=== PATIENT | male | born 1940 | race Two or more races ===

== ENCOUNTER 2018-11-26 16:13 | Inpatient (IN) | payer MEDICARE, MEDICAID ==
[~2018-11-26] VITALS: Ht 172.7 cm; Wt 65.8 kg
[2018-11-26 16:33] VITALS: BP 88/42
[2018-11-26] MEDS ORDERED: ARICEPT5 MG ORAL (16:44)
[2018-11-26] MEDS ORDERED: JUVEN PACKET1 EAC1 PO (16:44)
[2018-11-26] MEDS ORDERED: DEPAKOTE500 MG PO (16:44)
[2018-11-26] MEDS ORDERED: DOCUSATE SODIU100 MG ORAL (16:44)
[2018-11-26] MEDS ORDERED: BISACODYL10 M1 RC ×3 (16:44→18:50)
[2018-11-26] MEDS ORDERED: FERROUS SULFAT325 MG ORAL (16:44)
[2018-11-26] MEDS ORDERED: PLAVIX75 MG ORAL (16:44)
[2018-11-26] MEDS ORDERED: CRANBERRY TABL1 EACH PO (16:44)
[2018-11-26] MEDS ORDERED: MILK OF MA400 MG/51 ORAL ×2 (16:46→18:40)
[2018-11-26] MEDS ORDERED: MIDODRINE HCL5 MG ORAL (16:46)
[2018-11-26] MEDS ORDERED: SIMVASTATIN40 MG ORAL (16:46)
[2018-11-26] MEDS ORDERED: MULTIVITAMINS1 EAC8 ORAL (16:46)
[2018-11-26] MEDS ORDERED: PRINIVIL10 MG ORAL (16:46)
[2018-11-26] MEDS ORDERED: ACETAMINOPHEN325 M1 ORAL (16:48)
[2018-11-26] MEDS ORDERED: TAMSULOSIN HCL0.4 MG ORAL (16:48)
[2018-11-26] MEDS ORDERED: ASCORBIC ACID500 MG ORAL (16:49)
[2018-11-26] MEDS ORDERED: ZOFRAN4 M3 ORAL (16:49)
--- NOTE | 2018-11-26 16:57 | NUR ---
ED Nurse Note:pt. was BIBA from the SNF with small rectal bleeding after he had rectal biopcy done today, pt. is A/Ox1 to his name, he has healed left AKA and has wound on right foot, blood and urine sent to labs, given IV fluids, BP 101/53
[2018-11-26 17:13] LABS: HEMATOCRIT 22.6 % (42.0-52.0); HEMOGLOBIN 7.2 G/DL (14.2-18.0); MEAN CORPUSCULAR VOLUME 87 FL (80-99); PLATELET COUNT 309 K/UL (150-450); RED BLOOD COUNT 2.61 M/UL (4.70-6.10); RED CELL DISTRIBUTION WIDTH 13.6 % (11.6-14.8); WHITE BLOOD COUNT 9.5 K/UL (4.8-10.8)
[2018-11-26 17:14] LABS: APPEARANCE,URINE CLOUDY; BILIRUBIN, URINE NEGATIVE (NEGATIVE); COLOR,URINE PALE YELLOW; GLUCOSE, URINE (UA) NEGATIVE (NEGATIVE); KETONES,URINE NEGATIVE (NEGATIVE); LEUKOCYTE ESTERASE ,URINE 3+ (NEGATIVE); NITRITE,URINE NEGATIVE (NEGATIVE); PH,URINE 7 (4.5-8.0); PROTEIN,URINE 3+ (NEGATIVE); UROBILINOGEN,URINE NORMAL MG/DL (0.0-1.0)
[2018-11-26 17:22] LABS: INR 1.2 (0.9-1.1)
[2018-11-26] MEDS: Morphine Sulfate 2mg/ml Inj(IV/IM USE ONLY) IVP ONE ×2 (17:30→18:50)
[2018-11-26 17:32] LABS: ANION GAP 8 mmol/L (5-15); BLOOD UREA NITROGEN 29 mg/dL (7-18); CALCIUM 8.7 MG/DL (8.5-10.1); CARBON DIOXIDE 28 MMOL/L (21-32); CHLORIDE 97 MMOL/L (98-107); CREATININE 1.1 MG/DL (0.55-1.30); POTASSIUM 4.2 MMOL/L (3.5-5.1); SODIUM 133 MMOL/L (136-145)
--- NOTE | 2018-11-26 17:32 | Emergency Room Report ---
History of Present Illness General Chief Complaint: Gastrointestinal Bleed Source: Medical Record, EMS Present Illness HPI The patient is brought in by EMS from a [facility]. Apparently, the patient underwent prostate biopsy today. After the patient returned from the biopsy, the staff noted blood in the patient's stool. The patient complains of pain in his right leg. There are no other complaints. Allergies: Coded Allergies: No Known Allergies (Unverified , 11/26/18) Patient History Past Medical History: see triage record, old chart reviewed, DM, HTN, dementia , seizures, other - PVD, BPH Past Surgical History: other - L.AKA Social History: Denies: smoking, alcohol use, drug use Reviewed Nursing Documentation: PMH: Agreed; PSxH: Agreed Nursing Documentation-PMH Past Medical History: No History, Except For Hx Hypertension: Yes Hx Diabetes: Yes Hx Seizures: Yes Review of Systems All Other Systems: negative except mentioned in HPI Physical Exam Vital Signs Date Time Temp Pulse Resp B/P (MAP) Pulse Ox O2 Delivery O2 Flow Rate FiO2 11/26/18 16:15 97.5 99 18 89/53 94 Nasal Cannula 2.0 Sp02 EP Interpretation: reviewed, normal General Appearance: no apparent distress, alert, GCS 15, non-toxic Head: normocephalic, atraumatic Eyes: bilateral eye normal inspection, bilateral eye PERRL ENT: hearing grossly normal, normal pharynx, no angioedema, normal voice Neck: full range of motion, supple/symm/no masses Respiratory: chest non-tender, lungs clear, normal breath sounds, no respiratory distress, no retraction, no accessory muscle use, speaking full sentences Cardiovascular #1: regular rate, rhythm, no edema, systolic murmur Gastrointestinal: non tender, soft, non-distended, no guarding, no rebound Rectal: deferred Musculoskeletal: other - L. AKA, contracted Neurologic: alert, responsive, motor strength/tone normal, speech normal, grossly normal Psychiatric: mood/affect normal Skin: warm/dry, well hydrated, other - See RN skin exam for [facility] Medical Decision Making Diagnostic Impression: Primary Impression: Gastrointestinal hemorrhage Additional Impressions: Prostatitis UTI (urinary tract infection) ER Course This patient is anemic with a hemoglobin of 7. Given the bright red rectal bleeding, I am concerned that this patient could have a rectal bleed versus a bleed from the biopsy/prostate biopsy location. The patient has never been at this facility and I do not have a comparison hemoglobin or hematocrit. I am unsure what the patient's baseline is. Patient is also found to have a urinary tract infection. Was given broad-spectrum antibiotics. He is also transfused 2 units of packed red blood cells and admitted to the ICU step down. Laboratory Tests Test 11/26/18 16:50 White Blood Count 9.5 K/UL (4.8-10.8) Red Blood Count 2.61 M/UL (4.70-6.10) L Hemoglobin 7.2 G/DL (14.2-18.0) L Hematocrit 22.6 % (42.0-52.0) L Mean Corpuscular Volume 87 FL (80-99) Mean Corpuscular Hemoglobin 27.6 PG (27.0-31.0) Mean Corpuscular Hemoglobin Concent 31.9 G/DL (32.0-36.0) L Red Cell Distribution Width 13.6 % (11.6-14.8) Platelet Count 309 K/UL (150-450) Mean Platelet Volume 4.3 FL (6.5-10.1) L Neutrophils (%) (Auto) % (45.0-75.0) Lymphocytes (%) (Auto) % (20.0-45.0) Monocytes (%) (Auto) % (1.0-10.0) Eosinophils (%) (Auto) % (0.0-3.0) Basophils (%) (Auto) % (0.0-2.0) Differential Total Cells Counted 100 Neutrophils % (Manual) 80 % (45-75) H Lymphocytes % (Manual) 9 % (20-45) L Monocytes % (Manual) 9 % (1-10) Eosinophils % (Manual) 1 % (0-3) Basophils % (Manual) 0 % (0-2) Band Neutrophils 1 % (0-8) Toxic Granulation 1+ Platelet Estimate Adequate Platelet Morphology Normal Polychromasia 1+ Prothrombin Time 12.4 SEC (9.30-11.50) H Prothrombin Time INR 1.2 (0.9-1.1) H PTT 31 SEC (23-33) Urine Color Pale yellow Urine Appearance Cloudy Urine pH 7 (4.5-8.0) Urine Specific [place] 1.010 (1.005-1.035) Urine Protein 3+ (NEGATIVE) H Urine Glucose (UA) Negative (NEGATIVE) Urine Ketones Negative (NEGATIVE) Urine Blood 4+ (NEGATIVE) H Urine Nitrite Negative (NEGATIVE) Urine Bilirubin Negative (NEGATIVE) Urine Urobilinogen Normal MG/DL (0.0-1.0) Urine Leukocyte Esterase 3+ (NEGATIVE) H Urine RBC 0-2 /HPF (0 - 0) H Urine WBC Tntc /HPF (0 - 0) H Urine Squamous Epithelial Cells None /LPF (NONE/OCC) Urine Bacteria Many /HPF (NONE) H Sodium Level 133 MMOL/L (136-145) L Potassium Level 4.2 MMOL/L (3.5-5.1) Chloride Level 97 MMOL/L (98-107) L Carbon Dioxide Level 28 MMOL/L (21-32) Anion Gap 8 mmol/L (5-15) Blood Urea Nitrogen 29 mg/dL (7-18) H Creatinine 1.1 MG/DL (0.55-1.30) Estimate Glomerular Filtration Rate mL/min (>60) Glucose Level 145 MG/DL (74-106) H Calcium Level 8.7 MG/DL (8.5-10.1) Total Bilirubin 0.2 MG/DL (0.2-1.0) Aspartate Amino Transferase (AST) 57 U/L (15-37) H Alanine Aminotransferase (ALT) 36 U/L (12-78) Alkaline Phosphatase 83 U/L (46-116) Total Protein 7.6 G/DL (6.4-8.2) Albumin 1.4 G/DL (3.4-5.0) L Globulin 6.2 g/dL Albumin/Globulin Ratio 0.2 (1.0-2.7) L EKG Diagnostic Results Rate: normal Rhythm: NSR ST Segments: no acute changes Other Impression LBBB Rhythm Strip Diag. Results EP Interpretation: yes Rate: 100's Rhythm: no PVC's, no ectopy, other - S.tachycardia Last Vital Signs Date Time Temp Pulse Resp B/P (MAP) Pulse Ox O2 Delivery O2 Flow Rate FiO2 11/26/18 16:34 97 18 Room Air 2.0 11/26/18 16:33 97.5 88/42 97 Disposition: ADMITTED INPATIENT Condition: Critical Courtney Traore DO Nov 26, 2018 17:32
[2018-11-26 17:37] LABS: ALANINE AMINOTRANSFERASE 36 U/L (12-78); ALBUMIN 1.4 G/DL (3.4-5.0); ALBUMIN/GLOBULIN RATIO 0.2 (1.0-2.7); ALKALINE PHOSPHATASE 83 U/L (46-116); ASPARTATE AMINO TRANSFERASE 57 U/L (15-37); BILIRUBIN,TOTAL 0.2 MG/DL (0.2-1.0)
[2018-11-26] MEDS ORDERED: Cefepime HCl 1 GM in D5W 55 ML IVPB ONE (17:45)
[2018-11-26] MEDS ORDERED: DONEPEZIL HCL5 MG ORAL (18:36)
[2018-11-26 19:05] VITALS: BP 102/52
[2018-11-26 19:45] VITALS: BP 125/70
--- NOTE | 2018-11-26 19:45 | NUR ---
ED Nurse Note: PT report given to Naheed Ruiz RN from [facility]. pt vital signs, condition, status, labs and all info reported to Naheed BELTRE. pt is stable for transfer per MD order. vital signs are stable. pt brought up with all belongings. begings list done by Lana [facility].
--- NOTE | 2018-11-26 20:02 | NUR ---
NURSE NOTES: Patient arrived to SDU room 244-2 via gurney. Accompanied by 2 ED staff members. Received report from SILVANA RN in ED.Open eyes spontaneous, garbled speech. Arousable to verbal and tactile stimuli. does not follow commands.on NC 2L with no SOB. head of bed elevated. BP 106/52 HR 97 Temp 97.7 .skin body assessment done. patient has open wounds on right foot and heel.Wound picture was taken and uploaded.changed dressing per protocol.IV to LAC G20 patent and receiving transfusion. no adverse transfusion reaction observed.no facial grimace or moaning noted. bed locked in low position and bed alarm on.put condom cath.will continue to monitor patient closely.
[2018-11-26 20:10] VITALS: BP 106/52
[2018-11-26] MEDS ORDERED: Morphine Sulfate 2mg/ml Inj(IV/IM USE ONLY) IVP PRN (22:00)
[2018-11-27] VITALS: BP 97/48
[2018-11-27] MEDS: Tamsulosin 0.4mg cap ORAL SCH ×2 (01:12→21:14)
[2018-11-27] MEDS: Donepezil 5mg Tab ORAL SCH ×2 (01:12→21:14)
--- NOTE | 2018-11-27 01:30 | NUR ---
NURSE NOTES: Dr. Callejas came in and examined patient.patient asleep in bed with no acute distress noted.no sign of bleeding. BP 97/48 HR 85 .will continue to monitor.
--- NOTE | 2018-11-27 02:01 | History and Physical ---
History & Physical (DB) History & Physical History & Physical Chief Complaint: Rectal bleed Reason for Hospitalization: Significant bleeding from rectum after prostate biopsy. History obtained from: Chart and Patient HPI: is a 78 year old male who presents with BRBPR after a prostate biopsy done earlier Past Medical History: BPH, unable to care for himself Social History: [facility] resident Past Medical History: As above Diagnosis: Past Surgical History: None Social History:[facility] resident Occupational History: Not available. Social History Main Topics: Smoking status: Nonsmoker Smokeless tobacco: No Alcohol use:No Drug use:None Sexual activity:None Partners:None control/ protection:No Family History:NK Allergies:NKDA Medications: See list Review of Symptoms: General ROS: no weight loss or fever Psychological ROS: no depression or mood changes, no memory loss Ophthalmic ROS: no visual changes or eye irritation ENT ROS: no nasal congestion, hearing loss, dizziness Allergy and Immunology ROS: no allergic symptoms or urticaria Hematological and Lymphatic ROS: no swollen glands, unusual bleeding or bruising Endocrine ROS: no polyuria, polydipsia, weight changes, temperature intolerance Respiratory ROS: no cough, shortness of breath, or wheezing Cardiovascular ROS: no chest pain or dyspnea on exertion Gastrointestinal ROS: no abdominal pain, change in bowel habits, or black or bloody stools Musculoskeletal ROS: no myalgias or arthralgias Neurological ROS: no TIA or stroke symptoms Dermatological ROS: no new or changing skin lesions, rashes or pruritis Physical Exam Vitals: Intake/Output Summary (Last 24 hours) General appearance: alert, cooperative, confused at times, no distress, appears stated age Head: Normocephalic, without obvious abnormality, atraumatic Eyes: conjunctivae/corneas clear. PERRL, EOM's intact. Throat: Lips, mucosa, and tongue normal. Teeth and gums abnormal Neck: supple, symmetrical, trachea midline, no adenopathy, thyroid: not enlarged, symmetric, no tenderness/mass/nodules, no carotid bruit and no JVD Lungs: clear to auscultation bilaterally Heart: regular rate and rhythm, S1, S2 normal, no murmur, click, rub or gallop Abdomen: soft, non-tender. Bowel sounds normal. No masses, no organomegaly Extremities: extremities normal, atraumatic, no cyanosis or edema Pulses: 2+ and symmetric Skin: Skin color, texture, turgor normal. No rashes or lesions Neurologic: Grossly normal Laboratories: Estimated: Imaging and ancillary data Assessment/Problem List: Anemia, Prostate bleed, Plan: DVT Prophylaxis: scd Code status: full Hospital Classification declaration: Based on this initial evaluation, and depending on the patient's clinical course, I anticipate that this patient will require hospitalization for 1 day. Disposition: Once the patient is stable to leave the hospital, I anticipate the patient will likely be discharged to the following [facility]. I spent 70 minutes on this patient's case, and minutes was dedicated to counseling and/or care coordination. Case was discussed with stff. Time of note may not reflect time of encounter. Pollo Callejas MD Nov 27, 2018 02:01
[2018-11-27 04:00] VITALS: BP 95/47
[2018-11-27 05:22] LABS: HEMATOCRIT 20.5 % (42.0-52.0); MEAN CORPUSCULAR VOLUME 87 FL (80-99); PLATELET COUNT 223 K/UL (150-450); RED BLOOD COUNT 2.37 M/UL (4.70-6.10); RED CELL DISTRIBUTION WIDTH 13.5 % (11.6-14.8); WHITE BLOOD COUNT 6.7 K/UL (4.8-10.8)
[2018-11-27 05:52] LABS: ANION GAP 10 mmol/L (5-15); BLOOD UREA NITROGEN 25 mg/dL (7-18); CALCIUM 8.3 MG/DL (8.5-10.1); CARBON DIOXIDE 22 MMOL/L (21-32); CHLORIDE 102 MMOL/L (98-107); CREATININE 0.9 MG/DL (0.55-1.30); POTASSIUM 4.3 MMOL/L (3.5-5.1); SODIUM 133 MMOL/L (136-145)
[2018-11-27 06:03] LABS: HEMOGLOBIN 6.8 G/DL (14.2-18.0)
--- NOTE | 2018-11-27 06:57 | NUR ---
NURSE NOTES: Called and left message to regarding low H&H 6.8/20.5 waiting for MD call back.no sign of bleeding.
--- NOTE | 2018-11-27 07:16 | NUR ---
HAND-OFF: Report given to AYESHA FOSTER RN using SBAR at bedside. Júnior Patterson called back and ordered 2uint PRBC. will carry out order.
[2018-11-27 08:00] VITALS: BP 97/50
--- NOTE | 2018-11-27 08:00 | NUR ---
NURSE NOTES: Observed the patient resting in bed with eyes closed, easily arousable, able to follow simple commands. On 2L O2 via NC. No acute distress noted. SR noted on the monitor. Patient noted with left AKA, right foot dressing intact, clean and dry. Left AC 20G intact, TKO. Condom cath intact. Bed in lowest position, locked, side rails upx3, bed alarm on . Call light within reach. Will continue to monitor.
[2018-11-27] MEDS: Lisinopril 10mg tab ORAL SCH (09:00)
[2018-11-27] MEDS: Docusate 100mg cap ORAL SCH ×2 (09:09→18:36)
[2018-11-27] MEDS: Depakote 500mg tab ORAL SCH ×3 (09:09→18:35)
[2018-11-27] MEDS: Ascorbic Acid 500mg tab ORAL SCH (09:09)
--- NOTE | 2018-11-27 09:50 | NUR ---
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 HOME TO [facility] ER CC:GASTRO INTESTINAL BLEED SI:GASTROINTESTINAL BLEED . UTI VS: BP 88/42, P 99, T 97.5, RR 18, SPO2 97 HgB 6.8, Hct 20.5, Na 133, BUN 29, Urine Protein 3+, Urine Blood 4+, Urine Bacteria MANY IS: NS x1L IV MORPHINE 2mg IVP ARICEPT 5mg FLOMAX 0.4mg ADMITTED TO SDU DC PLAN RETURN TO [facility]
--- NOTE | 2018-11-27 11:10 | NUR ---
NURSE NOTES: Dr. Baca and wound care nurse at bedside, right foot dressing changed per MD. No rectal bleeding at this time.
[2018-11-27 12:00] VITALS: BP 100/56
--- NOTE | 2018-11-27 12:11 | NUR ---
RD ASSESSMENT & RECOMMENDATIONS SEE CARE ACTIVITY FOR COMPLETE ASSESSMENT DAILY ESTIMATED NEEDS: Needs based on WOUNDS/ 65kg 28-33 kcals/kg 2019-8808 total kcals 1.5-2.0 g protein/kg 97-130 g total protein 25-30 mL/kg [id number] total fluid mLs NUTRITION DIAGNOSIS: Increased kcal/prot needs R/T wound healing as evidenced by pt admitted w/ advanced wounds @ RT foot/heel per photos, pending eval, CURRENT DIET:REGULAR/ mech soft ground PO DIET RECOMMENDATIONS: REGULAR/ texture per SYSTEM ADMINISTRATOR or as tolerated ADDITIONAL RECOMMENDATIONS: * Calibrated bedscale wt for accurate CBW * WOUND HEALING: add MVI w/ min x 1, increase vit C to 500mg BID :Alejandro 1pkt BID * Consider SYSTEM ADMINISTRATOR eval for appropriate texture. * A1C for eval of glycemic control- h/o DM * Monitor BGs, need for carb controlled diet.
--- NOTE | 2018-11-27 13:30 | NUR ---
NURSE NOTES: Patient resting in bed comfortably, no acute distress noted. Blood transfusion on going. No adverse reaction noted.
--- NOTE | 2018-11-27 14:41 | Consultation ---
History of Present Illness General Reason for Hospitalization: Gastrointestinal Bleed Present Illness HPI This is a 78-year-old male with multiple medical comorbidities who is a detention resident presented to the emergency department [facility] with bright red blood per rectum. Patient had a prostate biopsy earlier today and since has been noted to have significant bleeding through the rectum. On initial evaluation patient was identified to be tachycardic and anemic. Patient was admitted for evaluation care and management. In the emergency department some dark blood was noted but no active bleeding. Surgery called to evaluate and assist with management. Patient seen, patient evaluated, chart reviewed. During evaluation patient was identified to have a prior lower extremity amputation and a contralateral foot with significant infection and peripheral vascular disease. Allergies: Coded Allergies: No Known Allergies (Unverified , 11/26/18) Medication History Scheduled Ascorbic Acid* (Ascorbic Acid*), 500 MG ORAL DAILY, (Reported) Clopidogrel Bisulfate* (Plavix*), 75 MG ORAL DAILY, (Reported) Divalproex Sodium (Depakote), 500 MG PO TID, (Reported) Docusate Sodium* (Docusate Sodium*), 100 MG ORAL TWICE A DAY, (Reported) Donepezil Hcl* (Donepezil Hcl*), 5 MG ORAL BEDTIME, (Reported) Ferrous Sulfate* (Ferrous Sulfate*), 325 MG ORAL TWICE A DAY, (Reported) Lisinopril* (Prinivil*), 10 MG ORAL DAILY, (Reported) Midodrine* (Proamatine*), 5 MG ORAL THREE TIMES A DAY, (Reported) Multivitamin With Minerals (Multivitamins With Minerals*), 1 TAB ORAL DAILY, ( Reported) Simvastatin (Zocor), 40 MG ORAL BEDTIME, (Reported) Tamsulosin Hcl (Tamsulosin Hcl*), 0.4 MG ORAL BEDTIME, (Reported) Scheduled PRN Acetaminophen* (Acetaminophen 325MG Tablet*), 650 MG ORAL Q4H PRN for For Pain, (Reported) Bisacodyl (Bisacodyl), 10 MG RC for Constipation, (Reported) Magnesium Hydroxide* (Milk Of Magnesia*), 30 ML ORAL DAILY PRN for Constipation, (Reported) Ondansetron* (Zofran*), 4 MG ORAL Q8HR PRN for Nausea & Vomiting, (Reported) Miscellaneous Medications Cranberry Conc/C/Bacill Coag (Cranberry Tablet), 1 EACH PO, (Reported) Discontinued Medications Arginine/Glutamine/Calcium Hmb (Alejandro Packet), 1 EACH PO BID, (Reported) Discontinued Reason: Therapy completed Bisacodyl (Bisacodyl), 10 MG RC, (Reported) Discontinued Reason: Therapy completed Donepezil Hcl* (Aricept*), 5 MG ORAL DAILY, (Reported) Discontinued Reason: Therapy completed Magnesium Hydroxide* (Milk Of Magnesia*), 30 ML ORAL DAILY, (Reported) Discontinued Reason: Therapy completed Patient History Limited by: medical condition History Provided By: Patient, Medical Record, PMD Healthcare decision maker SARIAH WASSERMAN Resuscitation status Full Code Advanced Directive on File Past Medical/Surgical History Past Medical/Surgical History: (1) Ulcerated, foot (2) Gastrointestinal hemorrhage (3) Prostatitis (4) UTI (urinary tract infection) (5) Blood in stool Review of Systems Review of Symptoms General ROS: no weight loss or fever Psychological ROS: no depression or mood changes, no memory loss Ophthalmic ROS: no visual changes or eye irritation ENT ROS: no nasal congestion, hearing loss, dizziness Allergy and Immunology ROS: no allergic symptoms or urticaria Hematological and Lymphatic ROS: no swollen glands, unusual bleeding or bruising Endocrine ROS: no polyuria, polydipsia, weight changes, temperature intolerance Respiratory ROS: no cough, shortness of breath, or wheezing Cardiovascular ROS: no chest pain or dyspnea on exertion Gastrointestinal ROS: denies abdominal pain, bright red blood in stool. Musculoskeletal ROS: no myalgias or arthralgias Neurological ROS: no TIA or stroke symptoms Dermatological ROS: no new or changing skin lesions, rashes or pruritis Physical Exam Physical Exam General appearance: alert, cooperative, no distress, appears stated age Head: Normocephalic, without obvious abnormality, atraumatic Eyes: conjunctivae/corneas clear. PERRL, EOM's intact. Fundi benign Throat: Lips, mucosa, and tongue normal. Teeth and gums normal Neck: supple, symmetrical, trachea midline, no adenopathy, thyroid: not enlarged, symmetric, no tenderness/mass/nodules, no carotid bruit and no JVD Lungs: clear to auscultation bilaterally Heart: regular rate and rhythm, S1, S2 normal, no murmur, click, rub or gallop Abdomen: soft, non-tender. Bowel sounds normal. No masses, no organomegaly Extremities: Left prior amputation ; contralateral extremity with ischemic infected foot Pulses: 2+ and symmetric Skin: Skin color, texture, turgor normal. No rashes or lesions Neurologic: Grossly normal Last 24 Hour Vital Signs Date Time Temp Pulse Resp B/P (MAP) Pulse Ox O2 Delivery O2 Flow Rate FiO2 11/27/18 12:00 Nasal Cannula 2.0 11/27/18 12:00 97.3 85 18 100/56 (71) 100 11/27/18 12:00 82 11/27/18 09:00 97/50 11/27/18 08:00 98.2 84 21 97/50 (66) 97 11/27/18 08:00 Nasal Cannula 2.0 11/27/18 08:00 82 11/27/18 04:00 97.7 88 18 95/47 (63) 100 11/27/18 04:00 Nasal Cannula 2.0 11/27/18 04:00 88 11/27/18 00:00 Nasal Cannula 2.0 11/27/18 00:00 99.0 85 18 97/48 (64) 100 11/27/18 00:00 84 11/27/18 00:00 Nasal Cannula 2.0 11/26/18 20:30 Nasal Cannula 2.0 11/26/18 20:10 97.7 97 16 106/52 (70) 97 11/26/18 20:07 100 11/26/18 19:45 98.2 85 17 125/70 98 Room Air 82 85 85 11/26/18 19:45 98.4 83 15 124/80 98 Room Air 83 11/26/18 19:05 97.8 90 17 102/52 98 Room Air 11/26/18 16:34 97 18 Room Air 2.0 11/26/18 16:33 97.5 97 18 88/42 97 Room Air 11/26/18 16:15 97.5 99 18 89/53 94 Nasal Cannula 2.0 Intake and Output 11/26/18 11/27/18 18:59 06:59 Intake Total 280 ml Output Total 200 ml Balance -200 ml 280 ml Intake Oral 30 ml Blood Product 250 ml Output Urine Total 200 ml # Voids 1 Laboratory Tests Test 11/26/18 16:50 11/27/18 03:35 White Blood Count 9.5 K/UL (4.8-10.8) 6.7 K/UL (4.8-10.8) Red Blood Count 2.61 M/UL (4.70-6.10) L 2.37 M/UL (4.70-6.10) L Hemoglobin 7.2 G/DL (14.2-18.0) L 6.8 G/DL (14.2-18.0) *L Hematocrit 22.6 % (42.0-52.0) L 20.5 % (42.0-52.0) L Mean Corpuscular Volume 87 FL (80-99) 87 FL (80-99) Mean Corpuscular Hemoglobin 27.6 PG (27.0-31.0) 28.6 PG (27.0-31.0) Mean Corpuscular Hemoglobin Concent 31.9 G/DL (32.0-36.0) L 33.1 G/DL (32.0-36.0) Red Cell Distribution Width 13.6 % (11.6-14.8) 13.5 % (11.6-14.8) Platelet Count 309 K/UL (150-450) 223 K/UL (150-450) Mean Platelet Volume 4.3 FL (6.5-10.1) L 4.4 FL (6.5-10.1) L Neutrophils (%) (Auto) % (45.0-75.0) % (45.0-75.0) Lymphocytes (%) (Auto) % (20.0-45.0) % (20.0-45.0) Monocytes (%) (Auto) % (1.0-10.0) % (1.0-10.0) Eosinophils (%) (Auto) % (0.0-3.0) % (0.0-3.0) Basophils (%) (Auto) % (0.0-2.0) % (0.0-2.0) Differential Total Cells Counted 100 100 Neutrophils % (Manual) 80 % (45-75) H 77 % (45-75) H Lymphocytes % (Manual) 9 % (20-45) L 14 % (20-45) L Monocytes % (Manual) 9 % (1-10) 4 % (1-10) Eosinophils % (Manual) 1 % (0-3) 1 % (0-3) Basophils % (Manual) 0 % (0-2) 1 % (0-2) Band Neutrophils 1 % (0-8) 3 % (0-8) Toxic Granulation 1+ Platelet Estimate Adequate Adequate Platelet Morphology Normal Normal Polychromasia 1+ Prothrombin Time 12.4 SEC (9.30-11.50) H Prothromb Time International Ratio 1.2 (0.9-1.1) H Activated Partial Thromboplast Time 31 SEC (23-33) Urine Color Pale yellow Urine Appearance Cloudy Urine pH 7 (4.5-8.0) Urine Specific [place] 1.010 (1.005-1.035) Urine Protein 3+ (NEGATIVE) H Urine Glucose (UA) Negative (NEGATIVE) Urine Ketones Negative (NEGATIVE) Urine Blood 4+ (NEGATIVE) H Urine Nitrite Negative (NEGATIVE) Urine Bilirubin Negative (NEGATIVE) Urine Urobilinogen Normal MG/DL (0.0-1.0) Urine Leukocyte Esterase 3+ (NEGATIVE) H Urine RBC 0-2 /HPF (0 - 0) H Urine WBC Tntc /HPF (0 - 0) H Urine Squamous Epithelial Cells None /LPF (NONE/OCC) Urine Bacteria Many /HPF (NONE) H Sodium Level 133 MMOL/L (136-145) L 133 MMOL/L (136-145) L Potassium Level 4.2 MMOL/L (3.5-5.1) 4.3 MMOL/L (3.5-5.1) Chloride Level 97 MMOL/L (98-107) L 102 MMOL/L (98-107) Carbon Dioxide Level 28 MMOL/L (21-32) 22 MMOL/L (21-32) Anion Gap 8 mmol/L (5-15) 10 mmol/L (5-15) Blood Urea Nitrogen 29 mg/dL (7-18) H 25 mg/dL (7-18) H Creatinine 1.1 MG/DL (0.55-1.30) 0.9 MG/DL (0.55-1.30) Estimat Glomerular Filtration Rate mL/min (>60) mL/min (>60) Glucose Level 145 MG/DL (74-106) H 79 MG/DL (74-106) Calcium Level 8.7 MG/DL (8.5-10.1) 8.3 MG/DL (8.5-10.1) L Total Bilirubin 0.2 MG/DL (0.2-1.0) Aspartate Amino Transf (AST/SGOT) 57 U/L (15-37) H Alanine Aminotransferase (ALT/SGPT) 36 U/L (12-78) Alkaline Phosphatase 83 U/L (46-116) Total Protein 7.6 G/DL (6.4-8.2) Albumin 1.4 G/DL (3.4-5.0) L Globulin 6.2 g/dL Albumin/Globulin Ratio 0.2 (1.0-2.7) L Microbiology Date/Time Source Procedure Growth Status 11/26/18 16:50 Urine,Clean Catch Urine Culture - Preliminary Resulted Height (Feet): 5 Height (Inches): 10.00 Weight (Pounds): 143 Medications Current Medications Medications (Trade) Dose Ordered Sig/Nat Route PRN Reason Start Time Stop Time Status Last Admin Dose Admin Acetaminophen (Tylenol) 650 mg Q4H PRN ORAL For Pain 11/26/18 22:00 12/26/18 21:59 Ascorbic Acid (Vitamin C) 500 mg DAILY ORAL 11/27/18 09:00 12/27/18 08:59 11/27/18 09:09 Clopidogrel Bisulfate (Plavix) 75 mg DAILY ORAL 11/27/18 09:00 12/27/18 08:59 Divalproex Sodium (Depakote) 500 mg TID ORAL 11/27/18 09:00 12/27/18 08:59 11/27/18 12:32 Docusate Sodium (Colace) 100 mg TWICE A DAY ORAL 11/27/18 09:00 12/27/18 08:59 11/27/18 09:09 Donepezil HCl (Aricept) 5 mg BEDTIME ORAL 11/26/18 22:30 12/26/18 22:29 11/27/18 01:12 Ferrous Sulfate (Feosol) 325 mg TWICE A DAY ORAL 11/27/18 09:00 12/27/18 08:59 11/27/18 09:09 Lisinopril (Zestril) 10 mg DAILY ORAL 11/27/18 09:00 12/27/18 08:59 Midodrine (Pro-Amatine) 5 mg THREE TIMES A DAY ORAL 11/27/18 09:00 12/27/18 08:59 11/27/18 12:32 Morphine Sulfate (Morphine Sulfate) 2 mg Q4H PRN IVP For Pain 11/26/18 22:00 12/03/18 21:59 Tamsulosin HCl (Flomax) 0.4 mg BEDTIME ORAL 11/26/18 22:30 12/26/18 22:29 11/27/18 01:12 Assessment/Plan Problem List: (1) Gastrointestinal hemorrhage Assessment & Plan: 78-year-old male with bright red blood per rectum likely secondary to recent prostate biopsy which is seem to have stopped. Severe anemia. Transfuse 2 units PRBC stat repeat CBC this evening AM labs trend labs monitor for bleeding. seems to have stopped since. other labs okay. ICD Codes: K92.2 - Gastrointestinal hemorrhage, unspecified SNOMED: 63010682 Qualifiers: Qualified Codes: K92.2 - Gastrointestinal hemorrhage, unspecified (2) Prostatitis ICD Codes: N41.9 - Inflammatory disease of prostate, unspecified SNOMED: 0897426 Qualifiers: Qualified Codes: N41.8 - Other inflammatory diseases of prostate (3) Ulcerated, foot Assessment & Plan: Patient with prior left lower extremity amputation which he states is secondary to an prior infection in his left foot requiring amputation. He now presents with a significant right lower extremity foot infection with ischemia. The right foot has edema dorsal necrosis a very large open area with exposed muscle tendon subcutaneous fat weeping seropurulent fluid and with some fat necrosis identified. The heel has a blackish necrotic eschar the medial malleolus has a black necrotic eschar. No pulses are palpable. Patient has decreased sensation. There is a foul odor. arterial and vascular duplex studies MRI right foot Based on clinical examination alone there is a high probability the patient will require an amputation will await findings of imaging and discuss with patient. Now we will continue with wound care IV antibiotics ICD Codes: L97.509 - Non-pressure chronic ulcer of other part of unspecified foot with unspecified severity SNOMED: 29542609 (4) Blood in stool ICD Codes: K92.1 - Melena SNOMED: 01442246, [id number] PhuongDveen Nov 27, 2018 14:41
[2018-11-27 16:00] VITALS: BP 100/50
--- NOTE | 2018-11-27 16:30 | NUR ---
NURSE NOTES: Patient resting in bed. no acute distress noted. MRI pending, US ongoing at this time, US tech at bedside.
--- NOTE | 2018-11-27 18:00 | NUR ---
NURSE NOTES: Patient noted with hematuria. Blood transfusion ongoing. Dr. Callejas made aware. No new orders at this time.
--- NOTE | 2018-11-27 19:16 | NUR ---
HAND-OFF: Report given to PATT Oro. Patient in stable condition.
--- NOTE | 2018-11-27 19:17 | NUR ---
NURSE NOTES: Received patient from MARCE ELDRIDGE RN. Patient stable, Second unit of blood running, CBC is ordered when blood transfusion is finished, will continue plan of care.
[2018-11-27 20:00] VITALS: BP 119/59
[2018-11-27] MEDS ORDERED: Donepezil 5mg Tab ORAL SCH (21:00)
[2018-11-27] MEDS: Piperacillin/Tazobactam 3.375 GM in D5W 110 ML IVPB SCH (21:15)
[2018-11-27 21:21] LABS: BASOPHILS % (AUTO) 0.3 % (0.0-2.0); EOSINOPHILS % (AUTO) 0.3 % (0.0-3.0); HEMATOCRIT 28.6 % (42.0-52.0); HEMOGLOBIN 9.5 G/DL (14.2-18.0); MEAN CORPUSCULAR VOLUME 86 FL (80-99); MONOCYTES % (AUTO) 10.4 % (1.0-10.0); PLATELET COUNT 232 K/UL (150-450); RED BLOOD COUNT 3.32 M/UL (4.70-6.10); RED CELL DISTRIBUTION WIDTH 13.1 % (11.6-14.8); WHITE BLOOD COUNT 8.2 K/UL (4.8-10.8)
[2018-11-28] VITALS: BP 148/54
[2018-11-28 04:00] VITALS: BP 105/51
[2018-11-28] MEDS: Piperacillin/Tazobactam 3.375 GM in D5W 110 ML IVPB SCH ×3 (05:47→21:47)
--- NOTE | 2018-11-28 07:15 | NUR ---
5NURSE NOTES: RECEIVED PT WITH HOB ELEVATED 45 DEGREE,EYES OPENS WITH VERBAL AND TACTILE STIMULI.FULL BODY ASSESSMENT DONE.PT REPOSITIONED IN BED Q2HRS TO PROVIDE COMFORT AND TO PREVENT FURTHER SKIN BREAK DOWN.DR BOND FROM [facility] CAME TO SEE THE PT ALSO DR LERMA CAME TO SEE THE PT. PT ON SCHEDULE FOR MRI OF RT FOOT WITHOUT CONTRAS TODAY.NO ACUTE DISTRESS NOTED AT THIS TIME.WILL CONT TO MONITOR.
--- NOTE | 2018-11-28 07:22 | NUR ---
HAND-OFF: Report given to PATT GARCIA.
[2018-11-28 08:00] VITALS: BP 101/55
[2018-11-28] MEDS: Ascorbic Acid 500mg tab ORAL SCH (09:00)
[2018-11-28] MEDS: Depakote 500mg tab ORAL SCH ×3 (09:58→18:31)
[2018-11-28] MEDS: Docusate 100mg cap ORAL SCH ×2 (09:58→18:31)
[2018-11-28] MEDS: Lisinopril 10mg tab ORAL SCH (10:00)
[2018-11-28 12:00] VITALS: BP 100/53
--- NOTE | 2018-11-28 12:11 | Podiatric Progress Note ---
Assessment/Plan Patient Wesley Sanchez is a 78 year old male who was admitted on Nov 26, 2018 at 18:00 with Problems: (1) Right foot infection (2) PVD (peripheral vascular disease) (3) Ulcer of right foot (4) Ulcer of right ankle (5) UTI (urinary tract infection) (6) Blood in stool (7) Gastrointestinal hemorrhage (8) Prostatitis Assessment/Plan MRI pending Vascular consult pending. BK amputation is recommended if ankle joint abscess or Osteomyelitis is present. Order was given for dakin/ns solution 50/50 application qd. patient will be followed. Subjective Reason for consult R foot infection Allergies: Coded Allergies: No Known Allergies (Unverified , 11/26/18) Subjective Patient seen by bedside consulted for R foot infection. Patient is admitted for GI bleeding from [facility]. MRI has been ordered and vascular consult is pending. Objective Exam Last 24 Hour Vital Signs Date Time Temp Pulse Resp B/P (MAP) Pulse Ox O2 Delivery O2 Flow Rate FiO2 11/28/18 10:00 101/55 11/28/18 08:00 97.8 81 18 101/55 (70) 99 11/28/18 08:00 Room Air 11/28/18 08:00 79 11/28/18 05:00 Room Air 11/28/18 04:00 97.7 79 20 105/51 (69) 98 11/28/18 03:45 75 11/28/18 00:00 97.7 78 20 148/54 (85) 98 11/27/18 23:43 82 11/27/18 20:00 Room Air 11/27/18 20:00 97.5 85 24 119/59 (79) 97 11/27/18 19:03 84 11/27/18 16:00 Room Air 11/27/18 16:00 78 11/27/18 16:00 98.3 76 16 100/50 (67) 97 11/27/18 12:00 Nasal Cannula 2.0 11/27/18 12:00 97.3 85 18 100/56 (71) 100 11/27/18 12:00 82 Laboratory Tests Test 11/27/18 20:50 White Blood Count 8.2 K/UL (4.8-10.8) Red Blood Count 3.32 M/UL (4.70-6.10) L Hemoglobin 9.5 G/DL (14.2-18.0) #L Hematocrit 28.6 % (42.0-52.0) #L Mean Corpuscular Volume 86 FL (80-99) Mean Corpuscular Hemoglobin 28.5 PG (27.0-31.0) Mean Corpuscular Hemoglobin Concent 33.1 G/DL (32.0-36.0) Red Cell Distribution Width 13.1 % (11.6-14.8) Platelet Count 232 K/UL (150-450) Mean Platelet Volume 4.6 FL (6.5-10.1) L Neutrophils (%) (Auto) 81.0 % (45.0-75.0) H Lymphocytes (%) (Auto) 8.0 % (20.0-45.0) L Monocytes (%) (Auto) 10.4 % (1.0-10.0) H Eosinophils (%) (Auto) 0.3 % (0.0-3.0) Basophils (%) (Auto) 0.3 % (0.0-2.0) Microbiology Date/Time Source Procedure Growth Status 11/26/18 16:50 Urine,Clean Catch Urine Culture - Preliminary Gram Negative Bacillus 1 Resulted 11/26/18 22:00 Foot Right Gram Stain - Final Resulted 11/26/18 22:00 Wound Culture - Preliminary Gram Negative Bacillus 1 Resulted Musculoskeletal Musculoskeletal bedbound patient with L Bk and R 1st and 2nd toe amp. contracted with direct pressure to the medial aspect of his left foot pressure. patient is turned to his L applying excessive amount of pressure. Neurological Neurological Narrative Cant asses at this time. Dermatological Dermatological Narrative R medial foot ulcer noted to extend from proximal ankle to medial distal foot. pus is dripping from the ankle joint. probs to ankle joint. edema and warmth present. sluff noted to the wound. ++odor. Julio C Byrnes DPM Nov 28, 2018 12:11
[2018-11-28] MEDS: Dakin's 0.25% (Half Strength) 16oz TOPIC SCH (14:12)
--- NOTE | 2018-11-28 14:20 | NUR ---
NURSE NOTES: ESCORTED PT VIA [facility] ACCOMPANIED WITH EDITH SIMONS OF MRI DPT.PT TOLERATING WELL MRI PROCEDURE OF RT FOOT.NO ACUTE DISTRESS NOTED AT THIS TIME.WILL CONT TO MONITOR.
--- NOTE | 2018-11-28 15:02 | Surgery Progress Note ---
Surgery Progress Note Subjective Additional Comments anemia; transfused prbc. otherwise stable. bloody stool noted Objective Last 24 Hour Vital Signs Date Time Temp Pulse Resp B/P (MAP) Pulse Ox O2 Delivery O2 Flow Rate FiO2 11/28/18 12:00 Room Air 11/28/18 12:00 98.0 79 19 100/53 (69) 97 11/28/18 10:00 101/55 11/28/18 08:00 97.8 81 18 101/55 (70) 99 11/28/18 08:00 Room Air 11/28/18 08:00 79 11/28/18 05:00 Room Air 11/28/18 04:00 97.7 79 20 105/51 (69) 98 11/28/18 03:45 75 11/28/18 00:00 97.7 78 20 148/54 (85) 98 11/27/18 23:43 82 11/27/18 20:00 Room Air 11/27/18 20:00 97.5 85 24 119/59 (79) 97 11/27/18 19:03 84 11/27/18 16:00 Room Air 11/27/18 16:00 78 11/27/18 16:00 98.3 76 16 100/50 (67) 97 I&O Intake and Output 11/27/18 11/28/18 18:59 06:59 Intake Total 750 ml 165.98 ml Output Total 300 ml 550 ml Balance 450 ml -384.02 ml Intake Oral 500 ml 50 ml IV Total 115.98 ml Blood Product 250 ml Output Urine Total 300 ml 550 ml # Voids 1 Dressing: saturated Wound: other Drains: other Cardiovascular: RSR Respiratory: decreased breath sounds Abdomen: soft, non-tender, present bowel sounds, non-distended Extremities: edema, cyanosis, other Laboratory Tests Test 11/27/18 20:50 White Blood Count 8.2 K/UL (4.8-10.8) Red Blood Count 3.32 M/UL (4.70-6.10) L Hemoglobin 9.5 G/DL (14.2-18.0) #L Hematocrit 28.6 % (42.0-52.0) #L Mean Corpuscular Volume 86 FL (80-99) Mean Corpuscular Hemoglobin 28.5 PG (27.0-31.0) Mean Corpuscular Hemoglobin Concent 33.1 G/DL (32.0-36.0) Red Cell Distribution Width 13.1 % (11.6-14.8) Platelet Count 232 K/UL (150-450) Mean Platelet Volume 4.6 FL (6.5-10.1) L Neutrophils (%) (Auto) 81.0 % (45.0-75.0) H Lymphocytes (%) (Auto) 8.0 % (20.0-45.0) L Monocytes (%) (Auto) 10.4 % (1.0-10.0) H Eosinophils (%) (Auto) 0.3 % (0.0-3.0) Basophils (%) (Auto) 0.3 % (0.0-2.0) Plan Problems: (1) Gastrointestinal hemorrhage Assessment & Plan: 78-year-old male with bright red blood per rectum likely secondary to recent prostate biopsy which is seem to have stopped. Severe anemia. possible GI bleed? GI consult AM labs trend labs monitor for bleeding. seems to have stopped since. other labs okay. (2) Prostatitis (3) Ulcerated, foot Assessment & Plan: Patient with prior left lower extremity amputation which he states is secondary to an prior infection in his left foot requiring amputation. He now presents with a significant right lower extremity foot infection with ischemia. The right foot has edema dorsal necrosis a very large open area with exposed muscle tendon subcutaneous fat weeping seropurulent fluid and with some fat necrosis identified. The heel has a blackish necrotic eschar the medial malleolus has a black necrotic eschar. No pulses are palpable. Patient has decreased sensation. There is a foul odor. arterial and vascular duplex studies MRI right foot Based on clinical examination alone there is a high probability the patient will require an amputation will await findings of imaging and discuss with patient. Now we will continue with wound care Podiatry and Vascular consult for limb salvage. IV antibiotics (4) Blood in stool Deven Baca Nov 28, 2018 15:02
[2018-11-28 16:00] VITALS: BP 90/44
--- NOTE | 2018-11-28 16:00 | NUR ---
NURSE NOTES: MRI OF RT FOOT COMPLETED ,PT TOLERATED WELL PROCEDURE.PT ESCORTED BACK TO HIS ROOM,RECONNECTED BACK TO ZOSYN 3.75MG IVPB.WILL CONT TO MONITOR.
--- NOTE | 2018-11-28 17:26 | General Progress Note ---
Progress Note Progress Note Bioethics note. Note: I wrote a longer note and [employer] crashed and evidently my note was lost. In sum, the Bioethics committee does not see a bioethics issue, apart from the inability of the patient to provide consent. The committee encourages the attending physicians to do what in their opinion would be in the patient's best interest. Please call if you wish to further discuss this; I spoke earlier with social media editor and Dr. Larson. Sumanth Woods MD Nov 28, 2018 17:26
--- NOTE | 2018-11-28 18:00 | NUR ---
NURSE NOTES:DR KSAGGS REPORT TO ARMINDA BELTRE IN CHARGE REGARDING MRI REPORT OF RT FOOT IS OSTEOMYLITIS.PT RT FOOT IS BLEEDING AND RE-ENFORCED WITH 4X4 AND KERLIX THEM ELEVATED WITH TWO PILLOWS. PLACED A TELEPHONE CALL TO DR WARD AND MADE AWARE AND NOTIFIED REGARDING RESULT OF MRI OSTEOMYLITIS OF RT FOOT ALSO .RT FOOT BLEEDING AND RE-ENFORCED WITH 4X4 AND KERLIX AND ELEVATED WITH PILLOWS,ALSO DR MYERS CAME TO SEE THE PT AND ASSESSED THE RT FOOT.NO NEW ORDERS FROM DR WARD NOTED .WILL CONT TO MONITOR.
--- NOTE | 2018-11-28 18:10 | Diagnostic Imaging Report ---
Indication: Swelling and pain with open wound of the right foot and heel Technique: Sagittal, coronal, and axial T 1 fast spin echo and fast spin echo STIR images of the ankle Comparison: none Findings: There there is considerable image degradation due to motion artifact. Is abnormal increased STIR signal and markedly abnormal increased T1 signal involving most of the talus. There is increased STIR signal and decreased T1 signal in the distal tibia. There is questionable STIR signal abnormality in the medial calcaneus, without definite T1 signal abnormality. Increased STIR and decreased T1 signal is seen in the posterior superior corner of the navicular. There is generalized edema of the dorsal and posterior fat. No definite focal defined fluid collections to suggest abscess demonstrated. There is suggestion of chronic erosive changes of the midfoot bones and proximal metatarsals, without definite focal marrow edema. Impression: Limited exam, due to patient motion artifact Abnormal signal within the talus, distal tibia, upper posterior navicular. Findings are highly suspicious for acute osteomyelitis. More questionable signal abnormality of the calcaneus, may be reactive or could indicate early acute osteomyelitis changes. Soft tissue edema, likely cellulitis given stated clinical history. No definite focal drainable abscess collection demonstrated CLAUDIA charge nurse notified of the findings at the time of interpretation
--- NOTE | 2018-11-28 18:11 | Diagnostic Imaging Report ---
Indication: Swelling and pain with open wound, dorsal necrosis Technique: Sagittal, coronal, and axial T 1 fast spin echo and fast spin echo STIR images of the right forefoot Comparison: none Findings: There is evidence of prior amputation of the first toe at the level of the metatarsophalangeal joint. There is increased STIR and decreased T1 signal within the distal first metatarsal. There is subtle slight increased STIR signal within the second proximal phalanx, without corresponding T1 signal abnormality. There is evidence of chronic osseous erosions of the middle and distal phalanges. There is evidence of prior third toe amputation at the level of the metatarsophalangeal joint. There is evidence of chronic erosive changes of the third metatarsal head. No definite marrow edema demonstrated. The fourth digit demonstrates no evidence of marrow edema. The fifth digit demonstrates no definite evidence of marrow edema. There is extensive edema of the subcutaneous fat and deep tissue compartments. No definite focal drainable fluid collection is demonstrated. There is evidence of a medial soft tissue ulcer at the level of the medial cuneiform. Impression: Abnormal marrow signal within the distal first metatarsal. This is highly suspicious for acute osteomyelitis Subtle increased STIR signal within the second proximal phalanx, without corresponding T1 signal abnormality. This could indicate reactive changes versus very early acute osteomyelitis Evidence of first and third toe amputations Chronic erosive changes as described Extensive diffuse soft tissue edema. Given stated clinical history, likely on the basis of cellulitis. No definite focal drainable abscess collection. There is evidence of medial soft tissue ulcer. CLAUDIA charge nurse notified of the findings at the time of interpretation
--- NOTE | 2018-11-28 19:00 | Consultation ---
DATE OF CONSULTATION: 11/28/2018 CHIEF COMPLAINT: Rectal bleeding. HISTORY OF PRESENT ILLNESS: Most of history per chart. The patient is a extremely poor historian, 78-year-old male with past medical history of peripheral vascular disease with left AKA presented to the hospital with rectal bleed after having a prostate biopsy. PAST MEDICAL HISTORY: 1. Significant for history of peripheral vascular disease requiring left AKA and right toe amputations. 2. Urinary tract infection. 3. BPH. 4. Dementia. 5. Hypertension. ALLERGIES: No known drug allergies. MEDICATIONS: He was on vitamin C, Plavix, Depakote, Colace, donepezil, iron, lisinopril, midodrine, multivitamin, simvastatin, tamsulosin. FAMILY HISTORY: Noncontributory. SOCIAL HISTORY: There is no history of tobacco, alcohol, or drug abuse. REVIEW OF SYSTEMS: Unable to obtain. PHYSICAL EXAMINATION: VITAL SIGNS: Temperature 97.8, pulse 81, respiration 18, blood pressure is 101/55. HEENT: Normocephalic and atraumatic. Mild pale conjunctivae. NECK: Supple. No evidence of obvious lymphadenopathy. CARDIOVASCULAR: Regular rhythm. Plus S1 and S2. No obvious murmur. LUNGS: Decreased breath sounds bilaterally based on supine exam. ABDOMEN: Soft and nontender. No rebound. No guarding. No peritoneal sign. EXTREMITIES: Left AKA and there is a right toe amputation. LABORATORY AND DIAGNOSTIC DATA: White count is 8.2, hemoglobin dropped to about 6.8, after two units now 9.5, platelet count 232. Chem-7, sodium 133, potassium 4.3, BUN 25, creatinine 0.9. ASSESSMENT: This is an 78-year-old male rectal bleeding after having a prostate biopsy. I am not sure if this is the cause for the rectal bleeding. We do not have any prior history of endoscopy and colonoscopy in this patient. The patient is extremely a poor historian. Never been admitted to [facility] for so we have no records on him. Our plan will be to stop his Plavix given active bleeding that required two units of blood transfusion. We are going to monitor his CBC on daily basis. Consider doing colonoscopy on Saturday if the patient has persistent rectal bleeding. Meanwhile as I mentioned, we are going to hold off on Plavix. Continue on Colace. Add MiraLAX. Follow labs and also follow with surgery regarding possible need for right leg amputation also given there is sign and symptoms of infection. I want to thank, Dr. Callejas, for this kind referral. Dre Forde M.D. DR: Kane JOB#: [id number] CC: Pollo Callejas M.D.; Fax#: [phone]
--- NOTE | 2018-11-28 19:00 | NUR ---
HAND-OFF: Report given to .ANNA BELTRE.
--- NOTE | 2018-11-28 19:11 | NUR ---
NURSE NOTES: Received patient from PATT GARCIA. Will continue plan of care.
[2018-11-28 20:00] VITALS: BP 105/54
[2018-11-28] MEDS: Tamsulosin 0.4mg cap ORAL SCH (21:48)
[2018-11-28] MEDS: Donepezil 5mg Tab ORAL SCH (21:48)
[2018-11-28] MEDS: Miralax 17gm pkt ORAL SCH (21:48)
--- NOTE | 2018-11-28 22:54 | General Progress Note ---
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
--- NOTE | 2018-11-28 23:05 | General Progress Note ---
Assessment/Plan Status: not improved Status Narrative Bright red bleed from rectum Left AKA Right foot ulcer not salvagable Possible GI bleed Peripheral vascular disease Assessment/Plan He will need AKA of right LE, will obtain cardiology clearance. At this time no active GI bleed. He has some bleed from his right foot. He is off of Plavix in preparation for surgery. Will check lab Subjective Date patient seen: Nov 28, 2018 Time patient seen: 22:56 ROS Limited/Unobtainable: No Constitutional: Reports: other - Pain of his right foot HEENT: Reports: no symptoms Cardiovascular: Reports: no symptoms Respiratory: Reports: no symptoms Gastrointestinal/Abdominal: Reports: no symptoms Genitourinary: Reports: no symptoms Neurologic/Psychiatric: Reports: no symptoms Endocrine: Reports: no symptoms Hematologic/Lymphatic: Reports: no symptoms Allergies: Coded Allergies: No Known Allergies (Unverified , 11/26/18) Objective Last 24 Hour Vital Signs Date Time Temp Pulse Resp B/P (MAP) Pulse Ox O2 Delivery O2 Flow Rate FiO2 11/28/18 20:00 97.8 83 20 105/54 (71) 97 11/28/18 20:00 Room Air 11/28/18 19:27 84 11/28/18 16:00 74 11/28/18 16:00 Room Air 11/28/18 16:00 98.2 74 17 90/44 (59) 97 11/28/18 12:00 Room Air 11/28/18 12:00 80 11/28/18 12:00 98.0 79 19 100/53 (69) 97 11/28/18 10:00 101/55 11/28/18 08:00 97.8 81 18 101/55 (70) 99 11/28/18 08:00 Room Air 11/28/18 08:00 79 11/28/18 05:00 Room Air 11/28/18 04:00 97.7 79 20 105/51 (69) 98 11/28/18 03:45 75 11/28/18 00:00 97.7 78 20 148/54 (85) 98 11/27/18 23:43 82 Intake and Output 11/27/18 11/28/18 19:00 07:00 Intake Total 750 ml 220.98 ml Output Total 300 ml 550 ml Balance 450 ml -329.02 ml Intake Oral 500 ml 50 ml IV Total 170.98 ml Blood Product 250 ml Output Urine Total 300 ml 550 ml # Voids 1 Height (Feet): 5 Height (Inches): 10.00 Weight (Pounds): 143 General Appearance: no apparent distress EENT: PERRL/EOMI Neck: non-tender Cardiovascular: regular rhythm Respiratory/Chest: chest wall non-tender, lungs clear Abdomen: normal bowel sounds, non tender, soft Pelvis: normal external exam Genitourinary/Rectal: heme positive stool Extremities: other - Left AKA and ulcer and contracture Right AKA Neurologic: alert, sensory deficit Skin: other - stage IV ulcer of right foot Lymphatic: normal anterior cervical (L), normal anterior cervical (R), normal posterior cervical (L), normal posterior cervical (R), normal submandibular (L) , normal submandibular (R), normal supraclavicular (L), normal supraclavicular ( R), normal axillary (L), normal axillary (R), normal inguinal (L), normal inguinal (R), normal other Pollo Callejas MD Nov 28, 2018 23:05
[2018-11-29] VITALS: BP 115/60
--- NOTE | 2018-11-29 00:06 | Cardiology Report ---
APPROVED REPORT EKG Measurement Heart [id number] Sinus tachycardia Left bundle branch block Abnormal ECG
[2018-11-29 04:00] VITALS: BP 102/56
[2018-11-29] MEDS: Piperacillin/Tazobactam 3.375 GM in D5W 110 ML IVPB SCH ×3 (05:40→21:36)
[2018-11-29 05:50] LABS: BASOPHILS % (AUTO) 0.3 % (0.0-2.0); EOSINOPHILS % (AUTO) 0.7 % (0.0-3.0); HEMATOCRIT 27.9 % (42.0-52.0); HEMOGLOBIN 9.2 G/DL (14.2-18.0); LYMPHOCYTES % (AUTO) 10.6 % (20.0-45.0); MEAN CORPUSCULAR VOLUME 86 FL (80-99); MONOCYTES % (AUTO) 9.7 % (1.0-10.0); NEUTROPHILS % (AUTO) 78.7 % (45.0-75.0); PLATELET COUNT 224 K/UL (150-450); RED BLOOD COUNT 3.23 M/UL (4.70-6.10); RED CELL DISTRIBUTION WIDTH 13.1 % (11.6-14.8); WHITE BLOOD COUNT 6.9 K/UL (4.8-10.8)
[2018-11-29 06:06] LABS: ANION GAP 6 mmol/L (5-15); BLOOD UREA NITROGEN 14 mg/dL (7-18); CALCIUM 8.2 MG/DL (8.5-10.1); CARBON DIOXIDE 28 MMOL/L (21-32); CHLORIDE 99 MMOL/L (98-107); CREATININE 0.8 MG/DL (0.55-1.30); POTASSIUM 3.6 MMOL/L (3.5-5.1); SODIUM 133 MMOL/L (136-145)
--- NOTE | 2018-11-29 07:02 | NUR ---
NURSE NOTES: Received report form Preethi BELTRE, pt. in bed awake, alert to name, no signs or symptoms of acute distress noted, bed in lowest position and call light within easy reach, cardiac monitoring on, pt. appears to be sating well on room air at 97%- no distress noted, pt. is clean and dry, bed alarm on and safety brakes engaged, condom cath intact and draining to gravity, dressings dry and intact, Left AC 20G- TKO- IV intact and patent, safety measures continued, will continue with plan of care. Addendum: 11/29/18 at 0756 by AMBER AVILES RN RN Side rails padded for seizure precautions.
--- NOTE | 2018-11-29 07:10 | NUR ---
HAND-OFF: Report given to PATT Tyler.
[2018-11-29 08:00] VITALS: BP 97/56
[2018-11-29] MEDS: Ascorbic Acid 500mg tab ORAL SCH (08:03)
[2018-11-29] MEDS: Docusate 100mg cap ORAL SCH (08:03)
[2018-11-29] MEDS: Depakote 500mg tab ORAL SCH ×3 (08:04→17:29)
[2018-11-29] MEDS: Lisinopril 10mg tab ORAL SCH (08:05)
[2018-11-29] MEDS: Dakin's 0.25% (Half Strength) 16oz TOPIC SCH (09:55)
--- NOTE | 2018-11-29 11:33 | NUR ---
HAND-OFF: Report given to Naye BELTRE/ Jonny BELTRE,pt. remians stable and no signs of distress noted.
--- NOTE | 2018-11-29 11:37 | NUR ---
NURSE NOTES: Patient received from Nayeli BELTRE. Patient awake, active, clean, and on room air with no signs of distress. Bed at its lowest position with call light in reach.
[2018-11-29 12:00] VITALS: BP 91/42
[2018-11-29] MEDS ORDERED: NS 275ml ONE (15:06)
[2018-11-29 16:00] VITALS: BP 93/44
--- NOTE | 2018-11-29 17:13 | Cardiac Electrophysiology PN ---
Subjective Subjective [id number] Objective Last 24 Hour Vital Signs Date Time Temp Pulse Resp B/P (MAP) Pulse Ox O2 Delivery O2 Flow Rate FiO2 11/29/18 15:26 83 11/29/18 12:00 97.3 71 18 91/42 (58) 96 11/29/18 12:00 Room Air 11/29/18 11:50 75 11/29/18 08:05 94/57 11/29/18 08:00 Room Air 11/29/18 08:00 97.9 78 18 97/56 (70) 98 11/29/18 08:00 80 11/29/18 04:00 Room Air 11/29/18 04:00 97.6 81 20 102/56 (71) 96 11/29/18 03:32 72 11/29/18 00:00 Room Air 11/29/18 00:00 98.2 87 20 115/60 (78) 99 11/28/18 23:34 88 11/28/18 20:00 97.8 83 20 105/54 (71) 97 11/28/18 20:00 Room Air 11/28/18 19:27 84 Intake and Output 11/28/18 11/29/18 19:00 07:00 Intake Total 965.0 ml 246.70 ml Output Total 1 ml 600 ml Balance 964.0 ml -353.30 ml Intake Oral 800 ml 100 ml IV Total 165.0 ml 146.70 ml Output Urine Total 600 ml Stool Total 1 ml # Voids 3 # Bowel Movements 2 Laboratory Tests Test 11/28/18 23:00 11/29/18 04:40 Stool Occult Blood Positive (NEGATIVE) White Blood Count 6.9 K/UL (4.8-10.8) Red Blood Count 3.23 M/UL (4.70-6.10) L Hemoglobin 9.2 G/DL (14.2-18.0) L Hematocrit 27.9 % (42.0-52.0) L Mean Corpuscular Volume 86 FL (80-99) Mean Corpuscular Hemoglobin 28.4 PG (27.0-31.0) Mean Corpuscular Hemoglobin Concent 32.9 G/DL (32.0-36.0) Red Cell Distribution Width 13.1 % (11.6-14.8) Platelet Count 224 K/UL (150-450) Mean Platelet Volume 4.7 FL (6.5-10.1) L Neutrophils (%) (Auto) 78.7 % (45.0-75.0) H Lymphocytes (%) (Auto) 10.6 % (20.0-45.0) L Monocytes (%) (Auto) 9.7 % (1.0-10.0) Eosinophils (%) (Auto) 0.7 % (0.0-3.0) Basophils (%) (Auto) 0.3 % (0.0-2.0) Sodium Level 133 MMOL/L (136-145) L Potassium Level 3.6 MMOL/L (3.5-5.1) Chloride Level 99 MMOL/L (98-107) Carbon Dioxide Level 28 MMOL/L (21-32) Anion Gap 6 mmol/L (5-15) Blood Urea Nitrogen 14 mg/dL (7-18) Creatinine 0.8 MG/DL (0.55-1.30) Estimat Glomerular Filtration Rate mL/min (>60) Glucose Level 122 MG/DL (74-106) H Calcium Level 8.2 MG/DL (8.5-10.1) L Microbiology Date/Time Source Procedure Growth Status 11/26/18 18:30 Nasal Nares MRSA Culture - Final NO METHICILLIN RESISTANT STAPH AUREUS... Complete 11/26/18 22:00 Foot Right Gram Stain - Final Resulted 11/26/18 22:00 Wound Culture - Preliminary Pseudomonas Aeruginosa Diphtheroids Resulted 11/26/18 18:30 Rectum VRE Culture - Final NO VANCOMYCIN RESISTANT ENTEROCOCCUS ... Complete Willie Araya MD Nov 29, 2018 17:13
--- NOTE | 2018-11-29 17:32 | General Progress Note ---
Assessment/Plan Assessment/Plan Assessment - Rectal bleeding, ? resolved - anemia - PVD / gangrene Recommendations - po diet - surgical f/u - monitor CBC - possible colonoscopy at later date Subjective Allergies: Coded Allergies: No Known Allergies (Unverified , 11/26/18) Subjective above noted no rectal bleeding plans for amputation noted Objective Last 24 Hour Vital Signs Date Time Temp Pulse Resp B/P (MAP) Pulse Ox O2 Delivery O2 Flow Rate FiO2 11/29/18 15:26 83 11/29/18 12:00 97.3 71 18 91/42 (58) 96 11/29/18 12:00 Room Air 11/29/18 11:50 75 11/29/18 08:05 94/57 11/29/18 08:00 Room Air 11/29/18 08:00 97.9 78 18 97/56 (70) 98 11/29/18 08:00 80 11/29/18 04:00 Room Air 11/29/18 04:00 97.6 81 20 102/56 (71) 96 11/29/18 03:32 72 11/29/18 00:00 Room Air 11/29/18 00:00 98.2 87 20 115/60 (78) 99 11/28/18 23:34 88 11/28/18 20:00 97.8 83 20 105/54 (71) 97 11/28/18 20:00 Room Air 11/28/18 19:27 84 Intake and Output 11/28/18 11/29/18 18:59 06:59 Intake Total 1020.0 ml 219.20 ml Output Total 1 ml 600 ml Balance 1019.0 ml -380.80 ml Intake Oral 800 ml 100 ml IV Total 220.0 ml 119.20 ml Output Urine Total 600 ml Stool Total 1 ml # Voids 3 # Bowel Movements 2 Laboratory Tests 11/28/18 23:00: Stool Occult Blood Positive 11/29/18 04:40: White Blood Count 6.9, Red Blood Count 3.23L, Hemoglobin 9.2L, Hematocrit 27.9L , Mean Corpuscular Volume 86, Mean Corpuscular Hemoglobin 28.4, Mean Corpuscular Hemoglobin Concent 32.9, Red Cell Distribution Width 13.1, Platelet Count 224, Mean Platelet Volume 4.7L, Neutrophils (%) (Auto) 78.7H, Lymphocytes (%) (Auto) 10.6L, Monocytes (%) (Auto) 9.7, Eosinophils (%) (Auto) 0.7, Basophils (%) (Auto) 0.3, Sodium Level 133L, Potassium Level 3.6, Chloride Level 99, Carbon Dioxide Level 28, Anion Gap 6, Blood Urea Nitrogen 14, Creatinine 0.8, Estimat Glomerular Filtration Rate , Glucose Level 122H, Calcium Level 8.2L Height (Feet): 5 Height (Inches): 10.00 Weight (Pounds): 143 Objective Debilitated L Man NCAT supple CTA RR abd soft ND (+) L AKA (+) R foot dressing Danilo Stover MD Nov 29, 2018 17:32
[2018-11-29] MEDS: Vancomycin 1.25mg/D5W 275ml IVPB SCH ×2 (17:57)
--- NOTE | 2018-11-29 18:10 | Infectious Diseases Prog Note ---
Assessment/Plan Assessment/Plan Full consult dictated: A) right foot/ankle gangrene/osteomyelitis/wound infection/cellulitis proteus uti allergies - nkda P) continue vancomycin and zosyn right aka recommended by vascular surgery thank you Subjective Allergies: Coded Allergies: No Known Allergies (Unverified , 11/26/18) Objective Vital Signs Last 24 Hour Vital Signs Date Time Temp Pulse Resp B/P (MAP) Pulse Ox O2 Delivery O2 Flow Rate FiO2 11/29/18 16:00 Room Air 11/29/18 16:00 98.1 82 25 93/44 (60) 96 11/29/18 15:26 83 11/29/18 12:00 97.3 71 18 91/42 (58) 96 11/29/18 12:00 Room Air 11/29/18 11:50 75 11/29/18 08:05 94/57 11/29/18 08:00 Room Air 11/29/18 08:00 97.9 78 18 97/56 (70) 98 11/29/18 08:00 80 11/29/18 04:00 Room Air 11/29/18 04:00 97.6 81 20 102/56 (71) 96 11/29/18 03:32 72 11/29/18 00:00 Room Air 11/29/18 00:00 98.2 87 20 115/60 (78) 99 11/28/18 23:34 88 11/28/18 20:00 97.8 83 20 105/54 (71) 97 11/28/18 20:00 Room Air 11/28/18 19:27 84 Height (Feet): 5 Height (Inches): 10.00 Weight (Pounds): 143 Microbiology Date/Time Source Procedure Growth Status 11/26/18 18:30 Nasal Nares MRSA Culture - Final NO METHICILLIN RESISTANT STAPH AUREUS... Complete 11/26/18 22:00 Foot Right Gram Stain - Final Resulted 11/26/18 22:00 Wound Culture - Preliminary Pseudomonas Aeruginosa Diphtheroids Resulted 11/26/18 18:30 Rectum VRE Culture - Final NO VANCOMYCIN RESISTANT ENTEROCOCCUS ... Complete Laboratory Tests Test 11/28/18 23:00 11/29/18 04:40 Stool Occult Blood Positive (NEGATIVE) White Blood Count 6.9 K/UL (4.8-10.8) Red Blood Count 3.23 M/UL (4.70-6.10) L Hemoglobin 9.2 G/DL (14.2-18.0) L Hematocrit 27.9 % (42.0-52.0) L Mean Corpuscular Volume 86 FL (80-99) Mean Corpuscular Hemoglobin 28.4 PG (27.0-31.0) Mean Corpuscular Hemoglobin Concent 32.9 G/DL (32.0-36.0) Red Cell Distribution Width 13.1 % (11.6-14.8) Platelet Count 224 K/UL (150-450) Mean Platelet Volume 4.7 FL (6.5-10.1) L Neutrophils (%) (Auto) 78.7 % (45.0-75.0) H Lymphocytes (%) (Auto) 10.6 % (20.0-45.0) L Monocytes (%) (Auto) 9.7 % (1.0-10.0) Eosinophils (%) (Auto) 0.7 % (0.0-3.0) Basophils (%) (Auto) 0.3 % (0.0-2.0) Sodium Level 133 MMOL/L (136-145) L Potassium Level 3.6 MMOL/L (3.5-5.1) Chloride Level 99 MMOL/L (98-107) Carbon Dioxide Level 28 MMOL/L (21-32) Anion Gap 6 mmol/L (5-15) Blood Urea Nitrogen 14 mg/dL (7-18) Creatinine 0.8 MG/DL (0.55-1.30) Estimat Glomerular Filtration Rate mL/min (>60) Glucose Level 122 MG/DL (74-106) H Calcium Level 8.2 MG/DL (8.5-10.1) L Current Medications Medications (Trade) Dose Ordered Sig/Nat Route PRN Reason Start Time Stop Time Status Last Admin Dose Admin Acetaminophen (Tylenol) 650 mg Q4H PRN ORAL For Pain 11/26/18 22:00 12/26/18 21:59 11/29/18 13:56 Ascorbic Acid (Vitamin C) 500 mg DAILY ORAL 11/27/18 09:00 12/27/18 08:59 11/29/18 08:03 Divalproex Sodium (Depakote) 500 mg TID ORAL 11/27/18 09:00 12/27/18 08:59 11/29/18 17:29 Docusate Sodium (Colace) 100 mg EVERY 12 HOURS ORAL 11/29/18 21:00 12/29/18 20:59 Donepezil HCl (Aricept) 5 mg BEDTIME ORAL 11/26/18 22:30 12/26/18 22:29 11/28/18 21:48 Ferrous Sulfate (Feosol) 325 mg TWICE A DAY ORAL 11/27/18 09:00 12/27/18 08:59 11/29/18 17:29 Lisinopril (Zestril) 10 mg DAILY ORAL 11/27/18 09:00 12/27/18 08:59 11/28/18 10:00 Morphine Sulfate (Morphine Sulfate) 2 mg Q4H PRN IVP For Pain 11/26/18 22:00 12/03/18 21:59 Piperacillin Sod/ Tazobactam Sod 3.375 gm/Dextrose 110 ml @ 27.5 mls/hr EVERY 8 HOURS IVPB 11/27/18 22:00 12/02/18 21:59 11/29/18 13:53 Polyethylene Glycol (Miralax) 17 gm BEDTIME ORAL 11/28/18 21:00 12/28/18 20:59 11/28/18 21:48 Sodium Hypochlorite (Dakin's Half Strength) 1 applic DAILY TOPIC 11/28/18 13:30 12/28/18 13:29 11/29/18 09:55 Tamsulosin HCl (Flomax) 0.4 mg BEDTIME ORAL 11/26/18 22:30 12/26/18 22:29 11/28/18 21:48 Vancomycin HCl (Vanco rx to dose) 1 ea DAILY PRN MISC Per rx protocol 11/29/18 17:45 12/29/18 17:44 Vancomycin HCl 1.25 gm/Dextrose 275 ml @ 183.333 mls/hr Q24H IVPB 11/29/18 18:00 12/04/18 17:59 11/29/18 17:57 Riki Lunsford MD Nov 29, 2018 18:10
--- NOTE | 2018-11-29 18:54 | Surgery Progress Note ---
Surgery Progress Note Subjective Additional Comments no acute events. afebrile, HD stable, labs stable. MRI noted. appreciate podiatry / vascular input Objective Last 24 Hour Vital Signs Date Time Temp Pulse Resp B/P (MAP) Pulse Ox O2 Delivery O2 Flow Rate FiO2 11/29/18 16:00 Room Air 11/29/18 16:00 98.1 82 25 93/44 (60) 96 11/29/18 15:26 83 11/29/18 12:00 97.3 71 18 91/42 (58) 96 11/29/18 12:00 Room Air 11/29/18 11:50 75 11/29/18 08:05 94/57 11/29/18 08:00 Room Air 11/29/18 08:00 97.9 78 18 97/56 (70) 98 11/29/18 08:00 80 11/29/18 04:00 Room Air 11/29/18 04:00 97.6 81 20 102/56 (71) 96 11/29/18 03:32 72 11/29/18 00:00 Room Air 11/29/18 00:00 98.2 87 20 115/60 (78) 99 11/28/18 23:34 88 11/28/18 20:00 97.8 83 20 105/54 (71) 97 11/28/18 20:00 Room Air 11/28/18 19:27 84 I&O Intake and Output 11/28/18 11/29/18 19:00 07:00 Intake Total 965.0 ml 246.70 ml Output Total 1 ml 600 ml Balance 964.0 ml -353.30 ml Intake Oral 800 ml 100 ml IV Total 165.0 ml 146.70 ml Output Urine Total 600 ml Stool Total 1 ml # Voids 3 # Bowel Movements 2 Dressing: saturated Wound: other Drains: other Cardiovascular: RSR Respiratory: clear Abdomen: soft, non-tender, non-distended Extremities: edema, tenderness, cyanosis Laboratory Tests Test 11/28/18 23:00 11/29/18 04:40 Stool Occult Blood Positive (NEGATIVE) White Blood Count 6.9 K/UL (4.8-10.8) Red Blood Count 3.23 M/UL (4.70-6.10) L Hemoglobin 9.2 G/DL (14.2-18.0) L Hematocrit 27.9 % (42.0-52.0) L Mean Corpuscular Volume 86 FL (80-99) Mean Corpuscular Hemoglobin 28.4 PG (27.0-31.0) Mean Corpuscular Hemoglobin Concent 32.9 G/DL (32.0-36.0) Red Cell Distribution Width 13.1 % (11.6-14.8) Platelet Count 224 K/UL (150-450) Mean Platelet Volume 4.7 FL (6.5-10.1) L Neutrophils (%) (Auto) 78.7 % (45.0-75.0) H Lymphocytes (%) (Auto) 10.6 % (20.0-45.0) L Monocytes (%) (Auto) 9.7 % (1.0-10.0) Eosinophils (%) (Auto) 0.7 % (0.0-3.0) Basophils (%) (Auto) 0.3 % (0.0-2.0) Sodium Level 133 MMOL/L (136-145) L Potassium Level 3.6 MMOL/L (3.5-5.1) Chloride Level 99 MMOL/L (98-107) Carbon Dioxide Level 28 MMOL/L (21-32) Anion Gap 6 mmol/L (5-15) Blood Urea Nitrogen 14 mg/dL (7-18) Creatinine 0.8 MG/DL (0.55-1.30) Estimat Glomerular Filtration Rate mL/min (>60) Glucose Level 122 MG/DL (74-106) H Calcium Level 8.2 MG/DL (8.5-10.1) L Plan Problems: (1) Gastrointestinal hemorrhage Assessment & Plan: 78-year-old male with bright red blood per rectum likely secondary to recent prostate biopsy which is seem to have stopped. Severe anemia. possible GI bleed? GI consult AM labs trend labs monitor for bleeding. seems to have stopped since. other labs okay. (2) Prostatitis (3) Ulcerated, foot Assessment & Plan: Patient with prior left lower extremity amputation which he states is secondary to an prior infection in his left foot requiring amputation. He now presents with a significant right lower extremity foot infection with ischemia. The right foot has edema dorsal necrosis a very large open area with exposed muscle tendon subcutaneous fat weeping seropurulent fluid and with some fat necrosis identified. The heel has a blackish necrotic eschar the medial malleolus has a black necrotic eschar. No pulses are palpable. Patient has decreased sensation. There is a foul odor. Abnormal signal within the talus, distal tibia, upper posterior navicular. Findings are highly suspicious for acute osteomyelitis. More questionable signal abnormality of the calcaneus, may be reactive or could indicate early acute osteomyelitis changes. Soft tissue edema, likely cellulitis given stated clinical history. No definite focal drainable abscess collection demonstrated Abnormal marrow signal within the distal first metatarsal. This is highly suspicious for acute osteomyelitis Subtle increased STIR signal within the second proximal phalanx, without corresponding T1 signal abnormality. This could indicate reactive changes versus very early acute osteomyelitis Evidence of first and third toe amputations Chronic erosive changes as described Extensive diffuse soft tissue edema. Given stated clinical history, likely on the basis of cellulitis. No definite focal drainable abscess collection. There is evidence of medial soft tissue ulcer. AKA recommended continue with wound care Podiatry and Vascular input appreciated IV antibiotics will discuss with patient and PCP (4) Blood in stool Deven Baca Nov 29, 2018 18:54
--- NOTE | 2018-11-29 19:18 | NUR ---
NURSE NOTES: Received patient from PATT Yancey. Patient is stable, resting in bed. Bed on lowest position, alarm is activated. Will continue plan of care.
[2018-11-29 20:00] VITALS: BP 100/50
[2018-11-29] MEDS: Tamsulosin 0.4mg cap ORAL SCH (21:36)
[2018-11-29] MEDS: Miralax 17gm pkt ORAL SCH (21:36)
[2018-11-29] MEDS: Donepezil 5mg Tab ORAL SCH (21:36)
[2018-11-29] MEDS: Docusate 100mg/10ml Liq ORAL SCH (21:36)
--- NOTE | 2018-11-29 23:44 | General Progress Note ---
Assessment/Plan Status: stable Status Narrative He is awaiting cardiology clearance before right AKA Assessment/Plan He will need AKA of right LE, will obtain cardiology clearance. At this time no active GI bleed. He has some bleed from his right foot. He is off of Plavix in preparation for surgery. Will check lab Subjective Date patient seen: Nov 29, 2018 Time patient seen: 23:36 ROS Limited/Unobtainable: No Constitutional: Reports: no symptoms HEENT: Reports: no symptoms Cardiovascular: Reports: no symptoms Respiratory: Reports: no symptoms Gastrointestinal/Abdominal: Reports: no symptoms Genitourinary: Reports: no symptoms Neurologic/Psychiatric: Reports: no symptoms Endocrine: Reports: no symptoms Hematologic/Lymphatic: Reports: no symptoms Allergies: Coded Allergies: No Known Allergies (Unverified , 11/26/18) Subjective His bleeding stopped. I spoke to his sister. They had a family meeting and they ok'd his amputation. Objective Last 24 Hour Vital Signs Date Time Temp Pulse Resp B/P (MAP) Pulse Ox O2 Delivery O2 Flow Rate FiO2 11/29/18 20:00 Room Air 11/29/18 20:00 97.3 72 16 100/50 (67) 98 11/29/18 19:33 70 11/29/18 16:00 Room Air 11/29/18 16:00 98.1 82 25 93/44 (60) 96 11/29/18 15:26 83 11/29/18 12:00 97.3 71 18 91/42 (58) 96 11/29/18 12:00 Room Air 11/29/18 11:50 75 11/29/18 08:05 94/57 11/29/18 08:00 Room Air 11/29/18 08:00 97.9 78 18 97/56 (70) 98 11/29/18 08:00 80 11/29/18 04:00 Room Air 11/29/18 04:00 97.6 81 20 102/56 (71) 96 11/29/18 03:32 72 11/29/18 00:00 Room Air 11/29/18 00:00 98.2 87 20 115/60 (78) 99 Intake and Output 11/28/18 11/29/18 18:59 06:59 Intake Total 1020.0 ml 219.20 ml Output Total 1 ml 600 ml Balance 1019.0 ml -380.80 ml Intake Oral 800 ml 100 ml IV Total 220.0 ml 119.20 ml Output Urine Total 600 ml Stool Total 1 ml # Voids 3 # Bowel Movements 2 Laboratory Tests 11/29/18 04:40: White Blood Count 6.9, Red Blood Count 3.23L, Hemoglobin 9.2L, Hematocrit 27.9L , Mean Corpuscular Volume 86, Mean Corpuscular Hemoglobin 28.4, Mean Corpuscular Hemoglobin Concent 32.9, Red Cell Distribution Width 13.1, Platelet Count 224, Mean Platelet Volume 4.7L, Neutrophils (%) (Auto) 78.7H, Lymphocytes (%) (Auto) 10.6L, Monocytes (%) (Auto) 9.7, Eosinophils (%) (Auto) 0.7, Basophils (%) (Auto) 0.3, Sodium Level 133L, Potassium Level 3.6, Chloride Level 99, Carbon Dioxide Level 28, Anion Gap 6, Blood Urea Nitrogen 14, Creatinine 0.8, Estimat Glomerular Filtration Rate , Glucose Level 122H, Calcium Level 8.2L 11/29/18 19:00: Stool Occult Blood [Pending] Height (Feet): 5 Height (Inches): 10.00 Weight (Pounds): 143 General Appearance: no apparent distress EENT: PERRL/EOMI Neck: non-tender Cardiovascular: normal peripheral pulses, normal rate, regular rhythm Respiratory/Chest: chest wall non-tender, lungs clear Abdomen: normal bowel sounds, non tender, soft, no organomegaly, no mass Pelvis: normal external exam Extremities: other - He had L AKA and he has multiple ulcers of the foot and contracture of the knee. 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
[2018-11-30] VITALS: BP 105/60
--- NOTE | 2018-11-30 00:15 | Consultation ---
DATE OF CONSULTATION: 11/29/2018 CARDIOLOGY CONSULTATION CONSULTING PHYSICIAN: Willie Araya M.D. REFERRING PHYSICIAN: . REASON FOR CONSULTATION: Preoperative clearance. HISTORY OF PRESENT ILLNESS: The patient is an 78-year-old gentleman with history of peripheral vascular disease, status post left above-knee amputation, was admitted to the hospital with rectal bleed after a prostate biopsy. The patient was admitted and followed up by Dr. Baca for his severe peripheral vascular disease. He is now being considered for left foot surgery. Cardiology consultation was obtained for further evaluation and management. At the time of my evaluation, the patient is confused and not able to provide any information. REVIEW OF SYSTEMS: Cannot be obtained. PAST MEDICAL HISTORY: As mentioned above. FAMILY HISTORY: Noncontributory. SOCIAL HISTORY: He lives in assisted. Does not smoke or drink alcohol. PHYSICAL EXAMINATION: VITAL SIGNS: Blood pressure is 90/42, pulse 71, respirations 18, and temperature 97.3. HEAD AND NECK: Showed no JVD. LUNGS: Decreased breath sounds. CARDIOVASCULAR: Regular, S1 and S2 with no gallop. ABDOMEN: Soft. EXTREMITIES: With left above-knee amputation and right foot ulcer. LABORATORY AND DIAGNOSTIC DATA: Labs show white count 6.9, hemoglobin was as low as 6.8 ____ 9.2; hematocrit of 27.9; and platelet count 224. Sodium 132 creatinine 0.8. EKG - sinus rhythm with complete left bundle-branch block. ASSESSMENT AND PLAN: 1. Left bundle-branch block. The patient did not have any chest pain. We will get an echocardiogram to evaluate for ejection fraction and wall motion abnormality. 2. Hypertension, on lisinopril 10 mg daily. In view of his borderline blood pressure, I will discontinue lisinopril. 3. Peripheral vascular disease, status post left above-knee amputation. 4. Infected right ankle joint and gangrene evaluated by Dr. Trinharian right leg above-knee amputation recommended. Thank you very much for allowing me to participate in the care of this patient. Dr. Callejas, please do not hesitate to contact me for any questions regarding my evaluation. Willie Araya M.D. DR: TIERA JOB#: [id number] CC:
[2018-11-30 04:00] VITALS: BP 100/53
--- NOTE | 2018-11-30 05:00 | Consultation ---
DATE OF CONSULTATION: 11/29/2018 INFECTIOUS DISEASE CONSULTATION CONSULTING PHYSICIAN: Riki Lunsford M.D. ATTENDING PHYSICIAN: Pollo Callejas M.D. REFERRING PHYSICIAN: Pollo Callejas M.D. REASON FOR CONSULTATION: Right foot and ankle wound infection, gangrene, and osteo. CHIEF COMPLAINT: The patient's chief complaint coming into the hospital is UTI and GI bleed. HISTORY OF PRESENT ILLNESS: This is an 78-year-old male who comes in to [facility] for GI bleed and was noted to have a Proteus UTI. However, the patient also was noted to have right foot and ankle infected wound, gangrene, and osteo. It was recommended the patient to undergo amputation by Vascular Surgery of the right lower extremity, right [id number] amputation. The patient has a history of left AKA. Because of the infected right foot wound and gangrene and likely osteo, Infectious Disease consultation was requested. The patient is currently on Zosyn. I am going to add vancomycin for MRSA coverage. Wound cultures grew out Pseudomonas and diphtheroids. The patient also has a Proteus UTI, we will give vancomycin and Zosyn for now. MAR was noted. Orders were noted. Notes were reviewed. The patient has a Diaz. He is in the [facility]. Case was discussed with the RN also. REVIEW OF SYSTEMS: CONSTITUTIONAL: The patient has generalized fatigue, opens his eyes, is responsive. HEAD AND NECK: No head pain or neck pain. CARDIAC: No chest pain. GASTROINTESTINAL: No nausea, vomiting, or diarrhea. He did come in with GI bleed, looks like. GENITOURINARY: He has a Diaz. PULMONARY: No significant congestion, shortness of breath, hemoptysis, or secretions. SKIN: No rash or itching. EXTREMITIES: He has left lower leg amputation. His right foot is covered. NEUROLOGIC: Denies seizures. No mention of night sweats or weight loss per the records. No chest pain or pressors. No abdominal pain, nausea, or diarrhea. No neck pain. He has fatigue. No fevers. PAST MEDICAL HISTORY: Includes the following: The patient has a peripheral vascular disease and left AKA, history of right foot wound and right ankle wound, history of urinary tract infection, history of BPH, history of dementia, history of hypertension. History is as discussed, GI bleed, also severely anemic on admission, BPH and prostatitis, looks like also. Looks like in the past he also has a history of diabetes. Other past medical history, diabetes, dementia, and seizures. ALLERGIES: No known drug allergies. SOCIAL HISTORY: Negative for smoking, alcohol, or drug abuse. FAMILY HISTORY: Noncontributory. Negative for tuberculosis or cancer. MEDICATIONS: Upon admitted in the ER, he is on the following medications. He is on vancomycin and Zosyn. He is on polyethylene. He is on ascorbic acid and divalproex. He is on antibiotics of vancomycin and Zosyn. He is on ferrous sulfate and lisinopril. He is on tamsulosin, benazepril or Aricept. He is on morphine and p.r.n. acetaminophen. Outside medications were noted and reconciled. PHYSICAL EXAMINATION: VITAL SIGNS: Temperature is 98.1, pulse rate is 82, respiratory rate 25, blood pressure 92/44, and saturation 96%. GENERAL: Alert and responsive, no acute distress. HEAD AND NECK: On oral exam, no thrush. Eyes, no icterus. Neck is supple. No JVD. Normocephalic. No mention of thrush. Neck is supple. HEART: Regular. No obvious gallop or murmur. ABDOMEN: Soft. Positive bowel sounds. Nontender. LUNGS: Clear bilaterally. No rhonchi or rales. SKIN: No rash. MUSCULOSKELETAL: He has left AKA. Stump looks dry to me. Right knee without effusion. Right leg without cellulitis. PERIPHERAL VASCULAR: He has right foot infected wound and ankle affected with gangrene and infected wound. GENITOURINARY: He has a Diaz. Urine is slightly cloudy. LINE: Line sites without phlebitis. NEUROLOGIC: He is alert and responsive. LABORATORY AND DIAGNOSTIC DATA: Laboratory as follows, white count 6.9, hemoglobin 9.2. On admission, hemoglobin 6.8 and in the low 7s, was also 7.2 hemoglobin. Sodium 133 and creatinine 0.8. UA had 3+ leukocyte esterase and too many to count white blood cells. Cultures, right foot and ankle wound culture with diphtheroids and Pseudomonas and urine culture with Proteus, both sensitive to Zosyn, which the patient is on at this time. IMAGING STUDIES: MRI ankle and foot showed acute osteo of the ankle and foot and also cellulitis of the foot. ASSESSMENT AND PLAN: 1. The patient has right foot and ankle osteomyelitis gangrene and infected wound and cellulitis. At this time, we will continue vancomycin and Zosyn for coverage for the infected right foot and ankle wound. Wound cultures grew out Pseudomonas and diphtheroids. The patient at high risk for gram positives also. The patient also has a Proteus urinary tract infection. At this time, we will continue vancomycin and Zosyn. Per the records, past history suggests amputation of the right lower extremity and right above knee amputation. 2. Check followup chest x-ray and laboratories. 3. Anemia. 4. Gastrointestinal bleed. 5. History of benign prostatic hypertrophy. 6. Diabetes. 7. Hypertension. 8. bph, prostatitis 9. Dementia. 10. Seizures. 11. No known allergies. 12. Social history is negative. 13. Family history is noncontributory. 14. MAR was noted. 15. Case discussed with RN. 16. Continue treatment per primary consultants. Riki Lunsford M.D. DR: CASSANDRA JOB#: [id number] CC: MAGDALENA
[2018-11-30] MEDS: Piperacillin/Tazobactam 3.375 GM in D5W 110 ML IVPB SCH ×3 (05:43→21:41)
[2018-11-30 06:03] LABS: BASOPHILS % (AUTO) 0.4 % (0.0-2.0); EOSINOPHILS % (AUTO) 2.2 % (0.0-3.0); HEMATOCRIT 27.7 % (42.0-52.0); LYMPHOCYTES % (AUTO) 14.4 % (20.0-45.0); MEAN CORPUSCULAR VOLUME 87 FL (80-99); MONOCYTES % (AUTO) 10.9 % (1.0-10.0); NEUTROPHILS % (AUTO) 72.2 % (45.0-75.0); PLATELET COUNT 199 K/UL (150-450); RED BLOOD COUNT 3.19 M/UL (4.70-6.10); RED CELL DISTRIBUTION WIDTH 13.2 % (11.6-14.8); WHITE BLOOD COUNT 5.5 K/UL (4.8-10.8)
[2018-11-30 06:30] LABS: ALANINE AMINOTRANSFERASE 22 U/L (12-78); ALBUMIN 1.2 G/DL (3.4-5.0); ALBUMIN/GLOBULIN RATIO 0.2 (1.0-2.7); ALKALINE PHOSPHATASE 64 U/L (46-116); ANION GAP 6 mmol/L (5-15); ASPARTATE AMINO TRANSFERASE 38 U/L (15-37); BILIRUBIN,TOTAL 0.2 MG/DL (0.2-1.0); BLOOD UREA NITROGEN 17 mg/dL (7-18); CALCIUM 8.2 MG/DL (8.5-10.1); CARBON DIOXIDE 28 MMOL/L (21-32); CHLORIDE 99 MMOL/L (98-107); CREATININE 0.9 MG/DL (0.55-1.30); POTASSIUM 3.8 MMOL/L (3.5-5.1); SODIUM 133 MMOL/L (136-145)
--- NOTE | 2018-11-30 07:07 | NUR ---
HAND-OFF: Report given to PATT Yancey and PATT Fuller.
[2018-11-30 08:00] VITALS: BP 108/49
[2018-11-30] MEDS: Depakote 500mg tab ORAL SCH ×3 (08:38→17:09)
[2018-11-30] MEDS: Ascorbic Acid 500mg tab ORAL SCH (08:38)
[2018-11-30] MEDS: Dakin's 0.25% (Half Strength) 16oz TOPIC SCH (08:41)
[2018-11-30] MEDS: Docusate 100mg/10ml Liq ORAL SCH ×2 (08:41→21:41)
[2018-11-30] MEDS: Lisinopril 10mg tab ORAL SCH (09:00)
--- NOTE | 2018-11-30 09:44 | Diagnostic Imaging Report ---
EXAM: XR Chest, 1 View CLINICAL HISTORY: INFECT TECHNIQUE: Frontal view of the chest. COMPARISON: No relevant prior studies available. FINDINGS: Lungs: Hypoventilatory lungs. Mild left lung base atelectasis. Vascularity within normal limits. Pleural space: Unremarkable. No pneumothorax. Heart: Unremarkable. No cardiomegaly. Mediastinum: Unremarkable. Bones/joints: Mild degenerative changes of the spine. IMPRESSION: Hypoventilatory lungs. Mild left lung base atelectasis.
[2018-11-30 12:00] VITALS: BP 103/53
--- NOTE | 2018-11-30 15:26 | NUR ---
CASE MANAGEMENT: REVIEW 11/30/2018 SI:GASTROINTESTINAL BLEED. UTI. T 97.5 HR 76 RR 20 B/P 103/53 SATS 98% ON RA NA 133 GLU 130 CA 8.2 AST 38 IS:ZOSYN IV Q8H FEOSOL PO BID FLOMAX PO QHS ARICEPT PO QHS LISINOPRIL PO QD VANCO IV Q24H DEPAKOTE PO TID STEP DOWN UNIT PLAN OF CARE: CXR
--- NOTE | 2018-11-30 15:37 | General Progress Note ---
Assessment/Plan Status: stable Status Narrative Stable awaiting surgery and pre-op cardiac clearance. He is clear from pulmonary for amputation Assessment/Plan He will need AKA of right LE, will obtain cardiology clearance. At this time no active GI bleed. He has some bleed from his right foot. He is off of Plavix in preparation for surgery. Will check lab Subjective Date patient seen: Nov 30, 2018 Time patient seen: 15:29 ROS Limited/Unobtainable: No Constitutional: Reports: other - Mild pain in his LE HEENT: Reports: no symptoms Cardiovascular: Reports: no symptoms Respiratory: Reports: no symptoms Gastrointestinal/Abdominal: Reports: no symptoms Genitourinary: Reports: no symptoms Neurologic/Psychiatric: Reports: weakness Endocrine: Reports: no symptoms Hematologic/Lymphatic: Reports: no symptoms Allergies: Coded Allergies: No Known Allergies (Unverified , 11/26/18) Subjective His bleeding stopped. I spoke to his sister. They had a family meeting and they ok'd his amputation. Awaiting cardiology clearance. Objective Last 24 Hour Vital Signs Date Time Temp Pulse Resp B/P (MAP) Pulse Ox O2 Delivery O2 Flow Rate FiO2 11/30/18 12:00 97.5 76 20 103/53 (70) 98 11/30/18 12:00 Room Air 11/30/18 11:33 72 11/30/18 09:00 100/53 11/30/18 08:00 97.5 77 20 108/49 (68) 96 11/30/18 08:00 78 11/30/18 08:00 Room Air 11/30/18 04:00 Room Air 11/30/18 04:00 96.8 72 16 100/53 (69) 95 11/30/18 03:54 71 11/30/18 00:00 Room Air 11/30/18 00:00 97.0 77 16 105/60 (75) 97 11/29/18 23:30 71 11/29/18 20:00 Room Air 11/29/18 20:00 97.3 72 16 100/50 (67) 98 11/29/18 19:33 70 11/29/18 16:00 Room Air 11/29/18 16:00 98.1 82 25 93/44 (60) 96 Intake and Output 11/29/18 11/30/18 19:00 07:00 Intake Total 1385.833 ml 736.987 ml Output Total 200 ml 1250 ml Balance 1185.833 ml -513.013 ml Intake Oral 1010 ml 500 ml IV Total 375.833 ml 236.987 ml Output Urine Total 200 ml 1250 ml # Voids 1 # Bowel Movements 3 2 Laboratory Tests 11/29/18 19:00: Stool Occult Blood Positive 11/30/18 03:35: White Blood Count 5.5, Red Blood Count 3.19L, Hemoglobin 9.0L, Hematocrit 27.7L , Mean Corpuscular Volume 87, Mean Corpuscular Hemoglobin 28.4, Mean Corpuscular Hemoglobin Concent 32.7, Red Cell Distribution Width 13.2, Platelet Count 199, Mean Platelet Volume 4.9L, Neutrophils (%) (Auto) 72.2, Lymphocytes ( %) (Auto) 14.4L, Monocytes (%) (Auto) 10.9H, Eosinophils (%) (Auto) 2.2, Basophils (%) (Auto) 0.4, Sodium Level 133L, Potassium Level 3.8, Chloride Level 99, Carbon Dioxide Level 28, Anion Gap 6, Blood Urea Nitrogen 17, Creatinine 0.9, Estimat Glomerular Filtration Rate , Glucose Level 130H, Calcium Level 8.2L, Total Bilirubin 0.2, Aspartate Amino Transf (AST/SGOT) 38H, Alanine Aminotransferase (ALT/SGPT) 22, Alkaline Phosphatase 64, Troponin I 0.003, Total Protein 6.7, Albumin 1.2L, Globulin 5.5, Albumin/Globulin Ratio 0.2L Height (Feet): 5 Height (Inches): 10.00 Weight (Pounds): 143 EENT: PERRL/EOMI Neck: non-tender, normal alignment, supple Cardiovascular: regular rhythm Respiratory/Chest: chest wall non-tender, lungs clear Abdomen: normal bowel sounds Pelvis: normal external exam Genitourinary/Rectal: normal genital exam 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
[2018-11-30 16:00] VITALS: BP 103/53
[2018-11-30] MEDS: Vancomycin 1.25mg/D5W 275ml IVPB SCH ×2 (18:14)
--- NOTE | 2018-11-30 19:30 | NUR ---
HAND-OFF: Report given to Indra Saucedo RN.
--- NOTE | 2018-11-30 19:30 | NUR ---
NURSE NOTES: Received patient and the change of shift from out going nurse Maria Esther BELTRE. Awake, alert and able to respond in Hebrew. Saline lock intact on left antecubital and no s/s of acute distress. Diaz catheter intact in place and urine is light epifanio and no sediment. HOB in 30 degree. No c/o pain at this moment. Dry and clean dressing intact on right foot. No s/s of acute distress.
--- NOTE | 2018-11-30 19:31 | General Progress Note ---
Assessment/Plan Assessment/Plan Assessment - Rectal bleeding, ? resolved - anemia - PVD / gangrene Recommendations - po diet - surgical f/u - monitor CBC - possible colonoscopy at later date Subjective Allergies: Coded Allergies: No Known Allergies (Unverified , 11/26/18) Subjective above noted no rectal bleeding awaiting surgery Objective Last 24 Hour Vital Signs Date Time Temp Pulse Resp B/P (MAP) Pulse Ox O2 Delivery O2 Flow Rate FiO2 11/30/18 16:00 97.7 80 20 103/53 (70) 97 11/30/18 16:00 Room Air 11/30/18 15:26 78 11/30/18 12:00 97.5 76 20 103/53 (70) 98 11/30/18 12:00 Room Air 11/30/18 11:33 72 11/30/18 09:00 100/53 11/30/18 08:00 97.5 77 20 108/49 (68) 96 11/30/18 08:00 78 11/30/18 08:00 Room Air 11/30/18 04:00 Room Air 11/30/18 04:00 96.8 72 16 100/53 (69) 95 11/30/18 03:54 71 11/30/18 00:00 Room Air 11/30/18 00:00 97.0 77 16 105/60 (75) 97 11/29/18 23:30 71 11/29/18 20:00 Room Air 11/29/18 20:00 97.3 72 16 100/50 (67) 98 11/29/18 19:33 70 Intake and Output 11/29/18 11/30/18 19:00 07:00 Intake Total 1385.833 ml 736.987 ml Output Total 200 ml 1250 ml Balance 1185.833 ml -513.013 ml Intake Oral 1010 ml 500 ml IV Total 375.833 ml 236.987 ml Output Urine Total 200 ml 1250 ml # Voids 1 # Bowel Movements 3 2 Laboratory Tests 11/30/18 03:35: White Blood Count 5.5, Red Blood Count 3.19L, Hemoglobin 9.0L, Hematocrit 27.7L , Mean Corpuscular Volume 87, Mean Corpuscular Hemoglobin 28.4, Mean Corpuscular Hemoglobin Concent 32.7, Red Cell Distribution Width 13.2, Platelet Count 199, Mean Platelet Volume 4.9L, Neutrophils (%) (Auto) 72.2, Lymphocytes ( %) (Auto) 14.4L, Monocytes (%) (Auto) 10.9H, Eosinophils (%) (Auto) 2.2, Basophils (%) (Auto) 0.4, Sodium Level 133L, Potassium Level 3.8, Chloride Level 99, Carbon Dioxide Level 28, Anion Gap 6, Blood Urea Nitrogen 17, Creatinine 0.9, Estimat Glomerular Filtration Rate , Glucose Level 130H, Calcium Level 8.2L, Total Bilirubin 0.2, Aspartate Amino Transf (AST/SGOT) 38H, Alanine Aminotransferase (ALT/SGPT) 22, Alkaline Phosphatase 64, Troponin I 0.003, Total Protein 6.7, Albumin 1.2L, Globulin 5.5, Albumin/Globulin Ratio 0.2L Height (Feet): 5 Height (Inches): 10.00 Weight (Pounds): 143 Objective Debilitated L Man NCAT supple CTA RR abd soft ND (+) L AKA (+) R foot dressing Danilo Stover MD Nov 30, 2018 19:31
[2018-11-30 20:00] VITALS: BP 120/58
--- NOTE | 2018-11-30 21:17 | Surgery Progress Note ---
Surgery Progress Note Subjective Additional Comments appreciate cardiology input. pending cardiac clearance for surgery. will need AKA given extent of disease. Objective Last 24 Hour Vital Signs Date Time Temp Pulse Resp B/P (MAP) Pulse Ox O2 Delivery O2 Flow Rate FiO2 11/30/18 16:00 97.7 80 20 103/53 (70) 97 11/30/18 16:00 Room Air 11/30/18 15:26 78 11/30/18 12:00 97.5 76 20 103/53 (70) 98 11/30/18 12:00 Room Air 11/30/18 11:33 72 11/30/18 09:00 100/53 11/30/18 08:00 97.5 77 20 108/49 (68) 96 11/30/18 08:00 78 11/30/18 08:00 Room Air 11/30/18 04:00 Room Air 11/30/18 04:00 96.8 72 16 100/53 (69) 95 11/30/18 03:54 71 11/30/18 00:00 Room Air 11/30/18 00:00 97.0 77 16 105/60 (75) 97 11/29/18 23:30 71 I&O Intake and Output 11/29/18 11/30/18 18:59 06:59 Intake Total 1413.333 ml 709.487 ml Output Total 200 ml 1250 ml Balance 1213.333 ml -540.513 ml Intake Oral 1010 ml 500 ml IV Total 403.333 ml 209.487 ml Output Urine Total 200 ml 1250 ml # Voids 1 # Bowel Movements 3 2 Dressing: saturated Wound: other Drains: other Cardiovascular: RSR Respiratory: decreased breath sounds Abdomen: soft, non-tender, present bowel sounds, non-distended Extremities: edema, tenderness, cyanosis, other Laboratory Tests Test 11/30/18 03:35 White Blood Count 5.5 K/UL (4.8-10.8) Red Blood Count 3.19 M/UL (4.70-6.10) L Hemoglobin 9.0 G/DL (14.2-18.0) L Hematocrit 27.7 % (42.0-52.0) L Mean Corpuscular Volume 87 FL (80-99) Mean Corpuscular Hemoglobin 28.4 PG (27.0-31.0) Mean Corpuscular Hemoglobin Concent 32.7 G/DL (32.0-36.0) Red Cell Distribution Width 13.2 % (11.6-14.8) Platelet Count 199 K/UL (150-450) Mean Platelet Volume 4.9 FL (6.5-10.1) L Neutrophils (%) (Auto) 72.2 % (45.0-75.0) Lymphocytes (%) (Auto) 14.4 % (20.0-45.0) L Monocytes (%) (Auto) 10.9 % (1.0-10.0) H Eosinophils (%) (Auto) 2.2 % (0.0-3.0) Basophils (%) (Auto) 0.4 % (0.0-2.0) Sodium Level 133 MMOL/L (136-145) L Potassium Level 3.8 MMOL/L (3.5-5.1) Chloride Level 99 MMOL/L (98-107) Carbon Dioxide Level 28 MMOL/L (21-32) Anion Gap 6 mmol/L (5-15) Blood Urea Nitrogen 17 mg/dL (7-18) Creatinine 0.9 MG/DL (0.55-1.30) Estimat Glomerular Filtration Rate mL/min (>60) Glucose Level 130 MG/DL (74-106) H Calcium Level 8.2 MG/DL (8.5-10.1) L Total Bilirubin 0.2 MG/DL (0.2-1.0) Aspartate Amino Transf (AST/SGOT) 38 U/L (15-37) H Alanine Aminotransferase (ALT/SGPT) 22 U/L (12-78) Alkaline Phosphatase 64 U/L (46-116) Troponin I 0.003 ng/mL (0.000-0.056) Total Protein 6.7 G/DL (6.4-8.2) Albumin 1.2 G/DL (3.4-5.0) L Globulin 5.5 g/dL Albumin/Globulin Ratio 0.2 (1.0-2.7) L Plan Problems: (1) Gastrointestinal hemorrhage Assessment & Plan: 78-year-old male with bright red blood per rectum likely secondary to recent prostate biopsy which is seem to have stopped. Severe anemia. possible GI bleed? GI consult AM labs trend labs monitor for bleeding. seems to have stopped since. other labs okay. (2) Prostatitis (3) Ulcerated, foot Assessment & Plan: Patient with prior left lower extremity amputation which he states is secondary to an prior infection in his left foot requiring amputation. He now presents with a significant right lower extremity foot infection with ischemia. The right foot has edema dorsal necrosis a very large open area with exposed muscle tendon subcutaneous fat weeping seropurulent fluid and with some fat necrosis identified. The heel has a blackish necrotic eschar the medial malleolus has a black necrotic eschar. No pulses are palpable. Patient has decreased sensation. There is a foul odor. Abnormal signal within the talus, distal tibia, upper posterior navicular. Findings are highly suspicious for acute osteomyelitis. More questionable signal abnormality of the calcaneus, may be reactive or could indicate early acute osteomyelitis changes. Soft tissue edema, likely cellulitis given stated clinical history. No definite focal drainable abscess collection demonstrated Abnormal marrow signal within the distal first metatarsal. This is highly suspicious for acute osteomyelitis Subtle increased STIR signal within the second proximal phalanx, without corresponding T1 signal abnormality. This could indicate reactive changes versus very early acute osteomyelitis Evidence of first and third toe amputations Chronic erosive changes as described Extensive diffuse soft tissue edema. Given stated clinical history, likely on the basis of cellulitis. No definite focal drainable abscess collection. There is evidence of medial soft tissue ulcer. AKA recommended continue with wound care Podiatry and Vascular input appreciated IV antibiotics will discuss with patient and PCP (4) Blood in stool Deven Baca Nov 30, 2018 21:17
[2018-11-30] MEDS: Donepezil 5mg Tab ORAL SCH (21:41)
[2018-11-30] MEDS: Tamsulosin 0.4mg cap ORAL SCH (21:41)
[2018-11-30] MEDS: Miralax 17gm pkt ORAL SCH (21:41)
--- NOTE | 2018-11-30 23:15 | Consultation ---
DATE OF CONSULTATION: 11/28/2018 VASCULAR SURGERY CONSULTATION CONSULTING PHYSICIAN: Brenden Borden M.D. REFERRING PHYSICIAN: 1. Deven Baca M.D. 2. Pollo Callejas M.D. REASON FOR CONSULTATION: Right foot gangrene and necrosis with infection. HISTORY OF PRESENT ILLNESS: This is an 78-year-old male who suffers from dementia, a long-term resident who presented to the hospital with low rectal bleeding reportedly from the prostate biopsy. The patient has a history of left leg above-knee amputation with a wound necrosis as well as extensive right foot gangrene into the ankle with pus drainage and knee contracture with absent foot pulses. Vascular Surgery is consulted for further evaluation. The patient is confused. All of the history is obtained from the medical records. PAST MEDICAL HISTORY: As above. History of hypertension, dementia, nonambulatory, prior history of left leg amputation, knee contracture, recent lower rectal and GI bleeding, and prostate biopsy. MEDICATIONS: See attached MAR. ALLERGIES: No known drug allergies. SOCIAL HISTORY: Unobtainable. FAMILY HISTORY: Unobtainable. SYSTEM REVIEW: Unobtainable due to altered mental status. PHYSICAL EXAMINATION: VITAL SIGNS: The patient is afebrile, temperature 97.8, heart rate is 83, respirations 20, saturation 97%, and blood pressure is 105/54 with a mean of 71. The patient has palpable radial pulses. GENERAL: He is confused and disoriented. NECK: No evidence of carotid bruits. LUNGS: Clear to auscultation bilaterally. HEART: Regular rate and rhythm. ABDOMEN: Soft and nontender. EXTREMITIES: He has palpable femoral pulses. Left leg above-knee amputation stump with anterior wound necrosis, right knee moderate contracture, absent right popliteal pulse, absent right posterior and tibial pedal, dorsalis pedis pulses with extensive right ankle foot gangrene and necrosis with pus drainage. LABORATORY AND DIAGNOSTIC DATA: Revealed WBC of 8.2, hemoglobin 9.5 from 6.8, and platelet count is 232,000. Sodium of 132, potassium of 4.3, BUN is 25, creatinine 0.9, glucose 79, INR is 1.2, and PTT 30. IMPRESSION: 1. Non-salvageable right leg with extensive gangrenous necrosis of the foot and ankle with pus drainage and knee contracture. 2. Absent pedal pulses on the right foot with calcific multilevel arterial occlusive disease. 3. History of left leg above-knee amputation with anterior wound necrosis. 4. Dementia. 5. Nonambulatory. 6. residential resident. 7. Recent GI bleeding with rectal, prostate biopsy. PLAN AND RECOMMENDATIONS: 1. Proceed with right leg above-knee amputation. 2. The patient may need incision and debridement of the left anterior above-knee amputation stump wound and wound VAC therapy. 3. Continue antibiotics per ID service. 4. Decubitus precautions. 5. DVT precautions. 6. Optimize nutrition. The above is discussed at length with the patient, nurse, and primary medical service and consultants. Brenden Borden M.D. DR: FUAD JOB#: [id number] CC: Pollo Callejas M.D.; Fax#: [phone] Deven Baca M.D. [email or web address]
[2018-12-01] VITALS: BP 114/61
[2018-12-01 04:00] VITALS: BP 120/60
[2018-12-01] MEDS: Piperacillin/Tazobactam 3.375 GM in D5W 110 ML IVPB SCH ×3 (05:37→21:20)
--- NOTE | 2018-12-01 06:00 | NUR ---
NURSE NOTES: Cleaned patient and changed linens. Soft bowel movement and moderate amount in brown.
--- NOTE | 2018-12-01 07:23 | NUR ---
HAND-OFF: Report given to Naye BELTRE.
--- NOTE | 2018-12-01 07:24 | NUR ---
NURSE NOTES: Received patient in bed. On room air, asleep, easy to arouse, no facial grimace, minimal verbal response noted. Condom catheter inplace, will continue plan of care.
[2018-12-01 08:00] VITALS: BP 108/54
[2018-12-01] MEDS: Ascorbic Acid 500mg tab ORAL SCH (08:43)
[2018-12-01] MEDS: Lisinopril 10mg tab ORAL SCH (08:43)
[2018-12-01] MEDS: Depakote 500mg tab ORAL SCH ×3 (08:44→17:24)
[2018-12-01] MEDS: Dakin's 0.25% (Half Strength) 16oz TOPIC SCH (08:44)
[2018-12-01] MEDS: Docusate 100mg/10ml Liq ORAL SCH ×2 (08:44→21:19)
[2018-12-01 12:00] VITALS: BP 95/48
--- NOTE | 2018-12-01 12:15 | GI Progress Note ---
Assessment/Plan Problems: (1) Osteomyelitis of ankle and foot ICD Codes: M86.9 - Osteomyelitis, unspecified SNOMED: 97611851 (2) Ulcer of right ankle ICD Codes: L97.319 - Non-pressure chronic ulcer of right ankle with unspecified severity SNOMED: 47720979, 591822753 (3) Right foot infection ICD Codes: L08.9 - Local infection of the skin and subcutaneous tissue, unspecified SNOMED: 634304395 (4) Gastrointestinal hemorrhage ICD Codes: K92.2 - Gastrointestinal hemorrhage, unspecified SNOMED: 47217265 Qualifiers: Qualified Codes: K92.2 - Gastrointestinal hemorrhage, unspecified (5) Blood in stool ICD Codes: K92.1 - Melena SNOMED: 05176336, 457036396 Status: unchanged Status Narrative Discussed with Dr. Forde Assessment/Plan Assessment - Rectal bleeding, ? resolved, stable H&H - anemia - PVD / gangrene Patient pending surgery OB stool positive x2 Recommendations - po diet - surgical f/u - monitor CBC - plan for colonoscopy after surgery The patient was seen and examined at bedside and all new and available data was reviewed in the patients chart. I agree with the above findings, impression and plan. (Patient seen earlier today. Signature stamp does not reflect patient encounter time.). - Dre Forde MD Subjective Subjective No rectal bleeding noted Tolerating diet Objective Last 24 Hour Vital Signs Date Time Temp Pulse Resp B/P (MAP) Pulse Ox O2 Delivery O2 Flow Rate FiO2 12/01/18 08:43 108/54 12/01/18 08:00 Room Air 12/01/18 08:00 97.5 88 18 108/54 (72) 97 12/01/18 07:41 82 12/01/18 04:00 77 12/01/18 04:00 97.2 80 16 120/60 (80) 96 12/01/18 04:00 Room Air 12/01/18 00:00 Room Air 12/01/18 00:00 97.2 80 16 114/61 (78) 96 12/01/18 00:00 80 11/30/18 20:00 81 11/30/18 20:00 97.9 80 16 120/58 (78) 97 11/30/18 20:00 Room Air 11/30/18 16:00 97.7 80 20 103/53 (70) 97 11/30/18 16:00 Room Air 11/30/18 15:26 78 Intake and Output 11/30/18 12/01/18 19:00 07:00 Intake Total 747.25 ml 461.333 ml Output Total 800 ml 1200 ml Balance -52.75 ml -738.667 ml Intake Oral 500 ml 120 ml IV Total 247.25 ml 341.333 ml Output Urine Total 800 ml 1200 ml # Bowel Movements 1 1 Height (Feet): 5 Height (Inches): 10.00 Weight (Pounds): 143 General Appearance: WD/WN, no apparent distress, alert Cardiovascular: normal rate Respiratory/Chest: normal breath sounds, no respiratory distress Abdominal Exam: normal bowel sounds, non tender, soft Extremities: non-tender Shantelle Weinstein NP Dec 01, 2018 12:15
--- NOTE | 2018-12-01 13:27 | NUR ---
RD ASSESSMENT & RECOMMENDATIONS SEE CARE ACTIVITY FOR COMPLETE ASSESSMENT DAILY ESTIMATED NEEDS: Needs based on WOUNDS/ 65kg 28-33 kcals/kg 0764-1748 total kcals 1.5-2.0 g protein/kg 97-130 g total protein 25-30 mL/kg 1813-9383 total fluid mLs NUTRITION DIAGNOSIS: Increased kcal/prot needs R/T wound healing as evidenced by pt admitted w/ nonsalvageable right leg with extensive gangrenous necrosis of the foot and ankle, MD recommending Rt AKA. CURRENT DIET:REGULAR/ PUREED MOIST PO DIET RECOMMENDATIONS: REGULAR/ texture per PIPE THREADING MACHINE OPERATOR or as tolerated ADDITIONAL RECOMMENDATIONS: * Calibrated bedscale wt for accurate CBW * WOUND HEALING: add MVI w/ min x 1, increase vit C to 500mg BID :Alejandro 1pkt BID * Consider PIPE THREADING MACHINE OPERATOR eval for appropriate texture. * A1C for eval of glycemic control- h/o DM * Monitor BGs, need for carb controlled diet.
--- NOTE | 2018-12-01 13:35 | Surgery Progress Note ---
Surgery Progress Note Subjective Additional Comments no acute events. exam unchanged. wound deteriorating. Objective Last 24 Hour Vital Signs Date Time Temp Pulse Resp B/P (MAP) Pulse Ox O2 Delivery O2 Flow Rate FiO2 12/01/18 12:00 Room Air 12/01/18 08:43 108/54 12/01/18 08:00 Room Air 12/01/18 08:00 97.5 88 18 108/54 (72) 97 12/01/18 07:41 82 12/01/18 04:00 77 12/01/18 04:00 97.2 80 16 120/60 (80) 96 12/01/18 04:00 Room Air 12/01/18 00:00 Room Air 12/01/18 00:00 97.2 80 16 114/61 (78) 96 12/01/18 00:00 80 11/30/18 20:00 81 11/30/18 20:00 97.9 80 16 120/58 (78) 97 11/30/18 20:00 Room Air 11/30/18 16:00 97.7 80 20 103/53 (70) 97 11/30/18 16:00 Room Air 11/30/18 15:26 78 I&O Intake and Output 11/30/18 12/01/18 19:00 07:00 Intake Total 747.25 ml 461.333 ml Output Total 800 ml 1200 ml Balance -52.75 ml -738.667 ml Intake Oral 500 ml 120 ml IV Total 247.25 ml 341.333 ml Output Urine Total 800 ml 1200 ml # Bowel Movements 1 1 Dressing: saturated Wound: other Drains: other Cardiovascular: RSR Respiratory: clear Abdomen: soft, non-tender, present bowel sounds Extremities: edema, tenderness, cyanosis, other Plan Problems: (1) Gastrointestinal hemorrhage Assessment & Plan: 78-year-old male with bright red blood per rectum likely secondary to recent prostate biopsy which is seem to have stopped. Severe anemia. possible GI bleed? GI consult AM labs trend labs monitor for bleeding. seems to have stopped since. other labs okay. (2) Prostatitis (3) Ulcerated, foot Assessment & Plan: Patient with prior left lower extremity amputation which he states is secondary to an prior infection in his left foot requiring amputation. He now presents with a significant right lower extremity foot infection with ischemia. The right foot has edema dorsal necrosis a very large open area with exposed muscle tendon subcutaneous fat weeping seropurulent fluid and with some fat necrosis identified. The heel has a blackish necrotic eschar the medial malleolus has a black necrotic eschar. No pulses are palpable. Patient has decreased sensation. There is a foul odor. Abnormal signal within the talus, distal tibia, upper posterior navicular. Findings are highly suspicious for acute osteomyelitis. More questionable signal abnormality of the calcaneus, may be reactive or could indicate early acute osteomyelitis changes. Soft tissue edema, likely cellulitis given stated clinical history. No definite focal drainable abscess collection demonstrated Abnormal marrow signal within the distal first metatarsal. This is highly suspicious for acute osteomyelitis Subtle increased STIR signal within the second proximal phalanx, without corresponding T1 signal abnormality. This could indicate reactive changes versus very early acute osteomyelitis Evidence of first and third toe amputations Chronic erosive changes as described Extensive diffuse soft tissue edema. Given stated clinical history, likely on the basis of cellulitis. No definite focal drainable abscess collection. There is evidence of medial soft tissue ulcer. AKA recommended - pending cardiology eval prior to surgery continue with wound care Podiatry and Vascular input appreciated IV antibiotics will discuss with patient and PCP (4) Blood in stool Deven Baca Dec 01, 2018 13:35
--- NOTE | 2018-12-01 14:49 | Cardiac Electrophysiology PN ---
Assessment/Plan Assessment/Plan 1. Left bundle-branch block. The patient did not have any chest pain. Echocardiogram Nl EF and No WMA 2. Hypertension, on lisinopril 10 mg daily. 3. Peripheral vascular disease, status post left above-knee amputation. 4. Infected right ankle joint and gangrene evaluated by Dr. Borden and schedule right leg above-knee amputation. OK to proceed with the Right AKA. No further cardiac testing/medications will change the out come. MACKENZIE RN Subjective Subjective No CP or SOB. Remained in SR with LBBB Objective Last 24 Hour Vital Signs Date Time Temp Pulse Resp B/P (MAP) Pulse Ox O2 Delivery O2 Flow Rate FiO2 12/01/18 12:00 Room Air 12/01/18 12:00 97.5 90 20 95/48 (64) 97 12/01/18 11:44 87 12/01/18 08:43 108/54 12/01/18 08:00 Room Air 12/01/18 08:00 97.5 88 18 108/54 (72) 97 12/01/18 07:41 82 12/01/18 04:00 77 12/01/18 04:00 97.2 80 16 120/60 (80) 96 12/01/18 04:00 Room Air 12/01/18 00:00 Room Air 12/01/18 00:00 97.2 80 16 114/61 (78) 96 12/01/18 00:00 80 11/30/18 20:00 81 11/30/18 20:00 97.9 80 16 120/58 (78) 97 11/30/18 20:00 Room Air 11/30/18 16:00 97.7 80 20 103/53 (70) 97 11/30/18 16:00 Room Air 11/30/18 15:26 78 Intake and Output 11/30/18 12/01/18 19:00 07:00 Intake Total 747.25 ml 461.333 ml Output Total 800 ml 1200 ml Balance -52.75 ml -738.667 ml Intake Oral 500 ml 120 ml IV Total 247.25 ml 341.333 ml Output Urine Total 800 ml 1200 ml # Bowel Movements 1 1 Objective HEAD AND NECK: No JVD. LUNGS: Decreased breath sounds. CARDIOVASCULAR: Regular, S1 and S2 with no gallop. ABDOMEN: Soft. EXTREMITIES: S/P left above-knee amputation and right foot ulcer. Willie Araya MD Dec 01, 2018 14:49
[2018-12-01 16:00] VITALS: BP 92/50
[2018-12-01] MEDS: Vancomycin 1.25mg/D5W 275ml IVPB SCH ×2 (17:24)
--- NOTE | 2018-12-01 17:47 | Infectious Diseases Prog Note ---
Assessment/Plan Assessment/Plan ASSESSMENT AND PLAN: 1. mrsa/pseudomonas/diphtheroids right foot/ankle wound infection/gangrene/ osteomyelitis/cellulitis, proteus uti - zosyn, vancomycin - plan on right aka - monitor labs 2. Check followup chest x-ray and laboratories. 3. Anemia. 4. Gastrointestinal bleed. 5. History of benign prostatic hypertrophy. 6. Diabetes - tx per primary 7. Hypertension - tx per primary 8. bph, prostatitis 9. Dementia. 10. Seizures. 11. No known allergies. 12. Social history is negative. 13. Family history is noncontributory. 14. MAR was noted. 15. Case discussed with RN. 16. Continue treatment per primary consultants. Subjective Constitutional: Denies: fever HEENT: Denies: congestion Respiratory: Denies: shortness of breath Cardiovascular: Denies: chest pain Gastrointestinal/Abdominal: Denies: nausea, vomiting, diarrhea Genitourinary: Reports: other - jones Neurologic: Reports: weakness Psychiatric: Reports: other - na Skin: Denies: rash Hematologic: Denies: bleeding Musculoskeletal: Denies: pain Allergies: Coded Allergies: No Known Allergies (Unverified , 11/26/18) Objective Vital Signs Last 24 Hour Vital Signs Date Time Temp Pulse Resp B/P (MAP) Pulse Ox O2 Delivery O2 Flow Rate FiO2 12/01/18 16:00 Room Air 12/01/18 16:00 97.5 93 19 92/50 (64) 98 12/01/18 12:00 Room Air 12/01/18 12:00 97.5 90 20 95/48 (64) 97 12/01/18 11:44 87 12/01/18 08:43 108/54 12/01/18 08:00 Room Air 12/01/18 08:00 97.5 88 18 108/54 (72) 97 12/01/18 07:41 82 12/01/18 04:00 77 12/01/18 04:00 97.2 80 16 120/60 (80) 96 12/01/18 04:00 Room Air 12/01/18 00:00 Room Air 12/01/18 00:00 97.2 80 16 114/61 (78) 96 12/01/18 00:00 80 11/30/18 20:00 81 11/30/18 20:00 97.9 80 16 120/58 (78) 97 11/30/18 20:00 Room Air Height (Feet): 5 Height (Inches): 10.00 Weight (Pounds): 143 General Appearance: no acute distress HEENT: normocephalic, atraumatic, anicteric, mucous membranes moist Respiratory/Chest: no accessory muscle use, crackles/rales, rhonchi - bilaterally Cardiovascular: normal rate, regular rhythm, no gallop/murmur Abdomen: normal bowel sounds, soft, non tender, no organomegaly, non distended Genitourinary: other - + jones - urine slt cloudy Extremities: other - right foot covered Skin: no rash Neurologic/Psychiatric: financial services director II-XII grossly normal, alert, responsive Lymphatic: no neck adenopathy Musculoskeletal: other - right foot covered Objective 11/30/18 - Chest x-ray - TECHNIQUE: Frontal view of the chest. COMPARISON: No relevant prior studies available. FINDINGS: Lungs: Hypoventilatory lungs. Mild left lung base atelectasis. Vascularity within normal limits. Pleural space: Unremarkable. No pneumothorax. Heart: Unremarkable. No cardiomegaly. Mediastinum: Unremarkable. Bones/joints: Mild degenerative changes of the spine. IMPRESSION: Hypoventilatory lungs. Mild left lung base atelectasis. MRI - right foot - Impression: Abnormal marrow signal within the distal first metatarsal. This is highly suspicious for acute osteomyelitis Subtle increased STIR signal within the second proximal phalanx, without corresponding T1 signal abnormality. This could indicate reactive changes versus very early acute osteomyelitis Evidence of first and third toe amputations Chronic erosive changes as described Extensive diffuse soft tissue edema. Given stated clinical history, likely on the basis of cellulitis. No definite focal drainable abscess collection. There is evidence of medial soft tissue ulcer. MRI - right ankle - Impression: Limited exam, due to patient motion artifact Abnormal signal within the talus, distal tibia, upper posterior navicular. Findings are highly suspicious for acute osteomyelitis. More questionable signal abnormality of the calcaneus, may be reactive or could indicate early acute osteomyelitis changes. Soft tissue edema, likely cellulitis given stated clinical history. No definite focal drainable abscess collection demonstrated Microbiology Date/Time Source Procedure Growth Status 11/26/18 18:30 Nasal Nares MRSA Culture - Final NO METHICILLIN RESISTANT STAPH AUREUS... Complete 11/26/18 16:50 Urine,Clean Catch Urine Culture - Final Proteus Mirabilis Complete 11/26/18 22:00 Foot Right Gram Stain - Final Complete 11/26/18 22:00 Wound Culture - Final Pseudomonas Aeruginosa Diphtheroids Staphylococcus Aureus - Mrsa Complete Labs Test 11/28/18 23:00 11/29/18 04:40 11/29/18 19:00 11/30/18 03:35 Stool Occult Blood Positive (NEGATIVE) Positive (NEGATIVE) White Blood Count 6.9 K/UL (4.8-10.8) 5.5 K/UL (4.8-10.8) Red Blood Count 3.23 M/UL (4.70-6.10) 3.19 M/UL (4.70-6.10) Hemoglobin 9.2 G/DL (14.2-18.0) 9.0 G/DL (14.2-18.0) Hematocrit 27.9 % (42.0-52.0) 27.7 % (42.0-52.0) Mean Corpuscular Volume 86 FL (80-99) 87 FL (80-99) Mean Corpuscular Hemoglobin 28.4 PG (27.0-31.0) 28.4 PG (27.0-31.0) Mean Corpuscular Hemoglobin Concent 32.9 G/DL (32.0-36.0) 32.7 G/DL (32.0-36.0) Red Cell Distribution Width 13.1 % (11.6-14.8) 13.2 % (11.6-14.8) Platelet Count 224 K/UL (150-450) 199 K/UL (150-450) Mean Platelet Volume 4.7 FL (6.5-10.1) 4.9 FL (6.5-10.1) Neutrophils (%) (Auto) 78.7 % (45.0-75.0) 72.2 % (45.0-75.0) Lymphocytes (%) (Auto) 10.6 % (20.0-45.0) 14.4 % (20.0-45.0) Monocytes (%) (Auto) 9.7 % (1.0-10.0) 10.9 % (1.0-10.0) Eosinophils (%) (Auto) 0.7 % (0.0-3.0) 2.2 % (0.0-3.0) Basophils (%) (Auto) 0.3 % (0.0-2.0) 0.4 % (0.0-2.0) Sodium Level 133 MMOL/L (136-145) 133 MMOL/L (136-145) Potassium Level 3.6 MMOL/L (3.5-5.1) 3.8 MMOL/L (3.5-5.1) Chloride Level 99 MMOL/L (98-107) 99 MMOL/L (98-107) Carbon Dioxide Level 28 MMOL/L (21-32) 28 MMOL/L (21-32) Anion Gap 6 mmol/L (5-15) 6 mmol/L (5-15) Blood Urea Nitrogen 14 mg/dL (7-18) 17 mg/dL (7-18) Creatinine 0.8 MG/DL (0.55-1.30) 0.9 MG/DL (0.55-1.30) Estimat Glomerular Filtration Rate mL/min (>60) mL/min (>60) Glucose Level 122 MG/DL (74-106) 130 MG/DL (74-106) Calcium Level 8.2 MG/DL (8.5-10.1) 8.2 MG/DL (8.5-10.1) Total Bilirubin 0.2 MG/DL (0.2-1.0) Aspartate Amino Transf (AST/SGOT) 38 U/L (15-37) Alanine Aminotransferase (ALT/SGPT) 22 U/L (12-78) Alkaline Phosphatase 64 U/L (46-116) Troponin I 0.003 ng/mL (0.000-0.056) Total Protein 6.7 G/DL (6.4-8.2) Albumin 1.2 G/DL (3.4-5.0) Globulin 5.5 g/dL Albumin/Globulin Ratio 0.2 (1.0-2.7) Current Medications Medications (Trade) Dose Ordered Sig/Nat Route PRN Reason Start Time Stop Time Status Last Admin Dose Admin Acetaminophen (Tylenol) 650 mg Q4H PRN ORAL For Pain 11/26/18 22:00 12/26/18 21:59 11/29/18 13:56 Ascorbic Acid (Vitamin C) 500 mg DAILY ORAL 11/27/18 09:00 12/27/18 08:59 12/01/18 08:43 Divalproex Sodium (Depakote) 500 mg TID ORAL 11/27/18 09:00 12/27/18 08:59 12/01/18 17:24 Docusate Sodium (Colace) 100 mg EVERY 12 HOURS ORAL 11/29/18 21:00 12/29/18 20:59 12/01/18 08:44 Donepezil HCl (Aricept) 5 mg BEDTIME ORAL 11/26/18 22:30 12/26/18 22:29 11/30/18 21:41 Ferrous Sulfate (Feosol) 325 mg BID ORAL 12/01/18 18:00 12/31/18 17:59 12/01/18 17:24 Lisinopril (Zestril) 10 mg DAILY ORAL 11/27/18 09:00 12/27/18 08:59 12/01/18 08:43 Morphine Sulfate (Morphine Sulfate) 2 mg Q4H PRN IVP For Pain 11/26/18 22:00 12/03/18 21:59 Piperacillin Sod/ Tazobactam Sod 3.375 gm/Dextrose 110 ml @ 27.5 mls/hr EVERY 8 HOURS IVPB 11/27/18 22:00 12/02/18 21:59 12/01/18 13:05 Polyethylene Glycol (Miralax) 17 gm BEDTIME ORAL 11/28/18 21:00 12/28/18 20:59 11/30/18 21:41 Sodium Hypochlorite (Dakin's Half Strength) 1 applic DAILY TOPIC 11/28/18 13:30 12/28/18 13:29 12/01/18 08:44 Tamsulosin HCl (Flomax) 0.4 mg BEDTIME ORAL 11/26/18 22:30 12/26/18 22:29 11/30/18 21:41 Vancomycin HCl (Vanco rx to dose) 1 ea DAILY PRN MISC Per rx protocol 11/29/18 17:45 12/29/18 17:44 Vancomycin HCl 1.25 gm/Dextrose 275 ml @ 183.333 mls/hr Q24H IVPB 11/29/18 18:00 12/04/18 17:59 12/01/18 17:24 Riki Lunsford MD Dec 01, 2018 17:47
[2018-12-01] MEDS ORDERED: Ferrous Sulfate 300 MG/5 ML UDC ORAL SCH (18:00)
--- NOTE | 2018-12-01 18:30 | NUR ---
NURSE NOTES: Informed Dr. Baca via telephone that Dr. Araya cleared patient for surgery.
--- NOTE | 2018-12-01 19:10 | NUR ---
NURSE NOTES: Report received from Naye Corrales RN. Patient seen in bed in semi prabhakar position. Patient is alert, verbally responsive, able to make needs known, forgetful at time. Denies any pain at this time. Noted with Condom cath, intact. IV site is to right AC 20g and right FA 20g, both is intact. Patient is on RA, sp02 is 98%, no acute respiratory distress present. Bed is in lowest position. Call light is within easy reach while in bed. Will continue to monitor.
--- NOTE | 2018-12-01 19:10 | NUR ---
HAND-OFF: Report given to Margaret Ballard RN.
[2018-12-01 20:00] VITALS: BP 115/57
[2018-12-01] MEDS: Miralax 17gm pkt ORAL SCH (21:19)
[2018-12-01] MEDS: Donepezil 5mg Tab ORAL SCH (21:19)
[2018-12-01] MEDS: Tamsulosin 0.4mg cap ORAL SCH (21:19)
[2018-12-02] VITALS: BP 108/61
[2018-12-02 04:00] VITALS: BP 108/61
[2018-12-02 04:51] LABS: BASOPHILS % (AUTO) 0.4 % (0.0-2.0); EOSINOPHILS % (AUTO) 1.6 % (0.0-3.0); HEMATOCRIT 29.9 % (42.0-52.0); HEMOGLOBIN 9.8 G/DL (14.2-18.0); LYMPHOCYTES % (AUTO) 14.1 % (20.0-45.0); MEAN CORPUSCULAR VOLUME 87 FL (80-99); MONOCYTES % (AUTO) 12.5 % (1.0-10.0); NEUTROPHILS % (AUTO) 71.4 % (45.0-75.0); PLATELET COUNT 202 K/UL (150-450); RED BLOOD COUNT 3.44 M/UL (4.70-6.10); RED CELL DISTRIBUTION WIDTH 13.5 % (11.6-14.8); WHITE BLOOD COUNT 7.3 K/UL (4.8-10.8)
[2018-12-02 05:23] LABS: ANION GAP 5 mmol/L (5-15); BLOOD UREA NITROGEN 12 mg/dL (7-18); CALCIUM 8.5 MG/DL (8.5-10.1); CARBON DIOXIDE 29 MMOL/L (21-32); CHLORIDE 95 MMOL/L (98-107); CREATININE 0.9 MG/DL (0.55-1.30); POTASSIUM 4.2 MMOL/L (3.5-5.1); SODIUM 129 MMOL/L (136-145)
--- NOTE | 2018-12-02 05:35 | NUR ---
NURSE NOTES: Paged and left msg Dr Callejas for Abnormal lab result (Na 129). Currently awaiting for call back.
[2018-12-02] MEDS: Piperacillin/Tazobactam 3.375 GM in D5W 110 ML IVPB SCH ×3 (05:57→22:21)
--- NOTE | 2018-12-02 07:12 | NUR ---
HAND-OFF: Report given to Orquidea Corcoran RN.
--- NOTE | 2018-12-02 07:31 | NUR ---
HAND-OFF: Received report from PATT Robles. Patient is resting in bed, in stable condition. NO s/sx of SOB, breathing is even and unlabored. BiPAP is on ordered setting. Observed no presence of pain or discomfort at this time. Bed is in lowest position, brakes engaged. Call light is kept within easy reach. Will continue to monitor patient.
[2018-12-02 08:00] VITALS: BP 119/66
[2018-12-02] MEDS: Lisinopril 10mg tab ORAL SCH (08:45)
[2018-12-02] MEDS: Depakote 500mg tab ORAL SCH ×3 (08:45→18:37)
[2018-12-02] MEDS: Ascorbic Acid 500mg tab ORAL SCH (08:45)
[2018-12-02] MEDS: Docusate 100mg/10ml Liq ORAL SCH ×2 (08:45→20:38)
[2018-12-02] MEDS: Sodium Chloride 1gm Tab ORAL SCH ×2 (08:45→18:36)
[2018-12-02] MEDS: Dakin's 0.25% (Half Strength) 16oz TOPIC SCH (08:46)
--- NOTE | 2018-12-02 11:27 | GI Progress Note ---
Assessment/Plan Problems: (1) Osteomyelitis of ankle and foot ICD Codes: M86.9 - Osteomyelitis, unspecified SNOMED: 47838870 (2) Ulcer of right ankle ICD Codes: L97.319 - Non-pressure chronic ulcer of right ankle with unspecified severity SNOMED: 39165934, 648485129 (3) Right foot infection ICD Codes: L08.9 - Local infection of the skin and subcutaneous tissue, unspecified SNOMED: 286318059 (4) Gastrointestinal hemorrhage ICD Codes: K92.2 - Gastrointestinal hemorrhage, unspecified SNOMED: 71710206 Qualifiers: Qualified Codes: K92.2 - Gastrointestinal hemorrhage, unspecified (5) Blood in stool ICD Codes: K92.1 - Melena SNOMED: 09389862, [id number] Status: unchanged Status Narrative Discussed with Dr. Forde. Assessment/Plan Assessment - Rectal bleeding, ? resolved, stable H&H - anemia - PVD / gangrene Patient pending surgery OB stool positive x2 Recommendations - po diet - surgical f/u - monitor CBC - plan for colonoscopy after surgery The patient was seen and examined at bedside and all new and available data was reviewed in the patients chart. I agree with the above findings, impression and plan. (Patient seen earlier today. Signature stamp does not reflect patient encounter time.). - Dre Forde MD Subjective Subjective No rectal bleeding noted Tolerating diet Objective Last 24 Hour Vital Signs Date Time Temp Pulse Resp B/P (MAP) Pulse Ox O2 Delivery O2 Flow Rate FiO2 12/02/18 08:45 119/66 12/02/18 08:00 Room Air 12/02/18 08:00 97.0 88 20 119/66 (83) 95 12/02/18 08:00 75 12/02/18 04:00 97.6 77 20 108/61 (77) 98 12/02/18 04:00 Room Air 12/02/18 03:31 84 12/02/18 00:00 98.4 83 20 108/61 (77) 97 12/02/18 00:00 Room Air 12/01/18 23:31 85 12/01/18 20:00 98.6 85 20 115/57 (76) 98 12/01/18 20:00 Room Air 12/01/18 19:24 81 12/01/18 16:00 Room Air 12/01/18 16:00 97.5 93 19 92/50 (64) 98 12/01/18 15:26 93 12/01/18 12:00 Room Air 12/01/18 12:00 97.5 90 20 95/48 (64) 97 12/01/18 11:44 87 Intake and Output 12/01/18 12/02/18 19:00 07:00 Intake Total 538.8 ml 350.0 ml Output Total 850 ml 1100 ml Balance -311.2 ml -750.0 ml Intake Oral 360 ml 240 ml IV Total 178.8 ml 110.0 ml Output Urine Total 850 ml 1100 ml # Bowel Movements 2 Laboratory Tests Test 12/02/18 03:25 White Blood Count 7.3 K/UL (4.8-10.8) Red Blood Count 3.44 M/UL (4.70-6.10) L Hemoglobin 9.8 G/DL (14.2-18.0) L Hematocrit 29.9 % (42.0-52.0) L Mean Corpuscular Volume 87 FL (80-99) Mean Corpuscular Hemoglobin 28.6 PG (27.0-31.0) Mean Corpuscular Hemoglobin Concent 33.0 G/DL (32.0-36.0) Red Cell Distribution Width 13.5 % (11.6-14.8) Platelet Count 202 K/UL (150-450) Mean Platelet Volume 4.9 FL (6.5-10.1) L Neutrophils (%) (Auto) 71.4 % (45.0-75.0) Lymphocytes (%) (Auto) 14.1 % (20.0-45.0) L Monocytes (%) (Auto) 12.5 % (1.0-10.0) H Eosinophils (%) (Auto) 1.6 % (0.0-3.0) Basophils (%) (Auto) 0.4 % (0.0-2.0) Sodium Level 129 MMOL/L (136-145) L Potassium Level 4.2 MMOL/L (3.5-5.1) Chloride Level 95 MMOL/L (98-107) L Carbon Dioxide Level 29 MMOL/L (21-32) Anion Gap 5 mmol/L (5-15) Blood Urea Nitrogen 12 mg/dL (7-18) Creatinine 0.9 MG/DL (0.55-1.30) Estimat Glomerular Filtration Rate mL/min (>60) Glucose Level 98 MG/DL (74-106) Calcium Level 8.5 MG/DL (8.5-10.1) Height (Feet): 5 Height (Inches): 10.00 Weight (Pounds): 143 General Appearance: WD/WN, no apparent distress, alert, thin Cardiovascular: normal rate Respiratory/Chest: normal breath sounds, no respiratory distress Abdominal Exam: normal bowel sounds, non tender, soft Extremities: non-tender Shantelle Weinstein NP Dec 02, 2018 11:27
[2018-12-02 12:00] VITALS: BP 96/58
--- NOTE | 2018-12-02 12:46 | General Progress Note ---
Assessment/Plan Status Narrative Awaiting cardiac clearance Assessment/Plan He will need AKA of right LE, will obtain cardiology clearance. At this time no active GI bleed. He has some bleed from his right foot. He is off of Plavix in preparation for surgery. Will check lab Subjective Date patient seen: Dec 01, 2018 Time patient seen: 14:52 ROS Limited/Unobtainable: No Constitutional: Reports: weakness HEENT: Reports: no symptoms Cardiovascular: Reports: no symptoms Respiratory: Reports: no symptoms Gastrointestinal/Abdominal: Reports: no symptoms Genitourinary: Reports: no symptoms Neurologic/Psychiatric: Reports: no symptoms Endocrine: Reports: no symptoms Hematologic/Lymphatic: Reports: no symptoms Allergies: Coded Allergies: No Known Allergies (Unverified , 11/26/18) Subjective His bleeding stopped. I spoke to his sister. They had a family meeting and they ok'd his amputation. Awaiting cardiology clearance. Objective Last 24 Hour Vital Signs Date Time Temp Pulse Resp B/P (MAP) Pulse Ox O2 Delivery O2 Flow Rate FiO2 12/02/18 08:45 119/66 12/02/18 08:00 Room Air 12/02/18 08:00 97.0 88 20 119/66 (83) 95 12/02/18 08:00 75 12/02/18 04:00 97.6 77 20 108/61 (77) 98 12/02/18 04:00 Room Air 12/02/18 03:31 84 12/02/18 00:00 98.4 83 20 108/61 (77) 97 12/02/18 00:00 Room Air 12/01/18 23:31 85 12/01/18 20:00 98.6 85 20 115/57 (76) 98 12/01/18 20:00 Room Air 12/01/18 19:24 81 12/01/18 16:00 Room Air 12/01/18 16:00 97.5 93 19 92/50 (64) 98 12/01/18 15:26 93 Intake and Output 12/01/18 12/02/18 19:00 07:00 Intake Total 538.8 ml 350.0 ml Output Total 850 ml 1100 ml Balance -311.2 ml -750.0 ml Intake Oral 360 ml 240 ml IV Total 178.8 ml 110.0 ml Output Urine Total 850 ml 1100 ml # Bowel Movements 2 Laboratory Tests 12/02/18 03:25: White Blood Count 7.3, Red Blood Count 3.44L, Hemoglobin 9.8L, Hematocrit 29.9L , Mean Corpuscular Volume 87, Mean Corpuscular Hemoglobin 28.6, Mean Corpuscular Hemoglobin Concent 33.0, Red Cell Distribution Width 13.5, Platelet Count 202, Mean Platelet Volume 4.9L, Neutrophils (%) (Auto) 71.4, Lymphocytes ( %) (Auto) 14.1L, Monocytes (%) (Auto) 12.5H, Eosinophils (%) (Auto) 1.6, Basophils (%) (Auto) 0.4, Sodium Level 129L, Potassium Level 4.2, Chloride Level 95L, Carbon Dioxide Level 29, Anion Gap 5, Blood Urea Nitrogen 12, Creatinine 0.9, Estimat Glomerular Filtration Rate , Glucose Level 98, Calcium Level 8.5 Height (Feet): 5 Height (Inches): 10.00 Weight (Pounds): 143 General Appearance: no apparent distress EENT: PERRL/EOMI Neck: non-tender Cardiovascular: normal rate Respiratory/Chest: lungs clear Abdomen: normal bowel sounds Pelvis: normal external exam Extremities: other - Multiple ulcers with drainage and infection. 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
--- NOTE | 2018-12-02 14:32 | NUR ---
NURSE NOTES: Dr. Araya seen and examined patient. Per Dr. Araya, patient is cleared for surgery. Noted. Will continue to monitor patient.
--- NOTE | 2018-12-02 14:44 | Cardiac Electrophysiology PN ---
Assessment/Plan Assessment/Plan 1. Left bundle-branch block. The patient did not have any chest pain. Echocardiogram Nl EF and No WMA 2. Hypertension, on lisinopril 10 mg daily. 3. Peripheral vascular disease, status post left above-knee amputation. FU Dr Borden. Likely would need aspirin and statin after Right AKA 4. Infected right ankle joint and gangrene evaluated by Dr. Borden and schedule right leg above-knee amputation. OK to proceed with the Right AKA. No further cardiac testing/medications will change the out come. MACKENZIE RN and Dr Baca Subjective Subjective No CP or SOB. In SR with LBBB Objective Last 24 Hour Vital Signs Date Time Temp Pulse Resp B/P (MAP) Pulse Ox O2 Delivery O2 Flow Rate FiO2 12/02/18 12:00 98.4 82 18 96/58 (71) 96 12/02/18 12:00 81 12/02/18 12:00 Room Air 12/02/18 08:45 119/66 12/02/18 08:00 Room Air 12/02/18 08:00 97.0 88 20 119/66 (83) 95 12/02/18 08:00 75 12/02/18 04:00 97.6 77 20 108/61 (77) 98 12/02/18 04:00 Room Air 12/02/18 03:31 84 12/02/18 00:00 98.4 83 20 108/61 (77) 97 12/02/18 00:00 Room Air 12/01/18 23:31 85 12/01/18 20:00 98.6 85 20 115/57 (76) 98 12/01/18 20:00 Room Air 12/01/18 19:24 81 12/01/18 16:00 Room Air 12/01/18 16:00 97.5 93 19 92/50 (64) 98 12/01/18 15:26 93 Intake and Output 12/01/18 12/02/18 19:00 07:00 Intake Total 538.8 ml 350.0 ml Output Total 850 ml 1100 ml Balance -311.2 ml -750.0 ml Intake Oral 360 ml 240 ml IV Total 178.8 ml 110.0 ml Output Urine Total 850 ml 1100 ml # Bowel Movements 2 Laboratory Tests Test 12/02/18 03:25 White Blood Count 7.3 K/UL (4.8-10.8) Red Blood Count 3.44 M/UL (4.70-6.10) L Hemoglobin 9.8 G/DL (14.2-18.0) L Hematocrit 29.9 % (42.0-52.0) L Mean Corpuscular Volume 87 FL (80-99) Mean Corpuscular Hemoglobin 28.6 PG (27.0-31.0) Mean Corpuscular Hemoglobin Concent 33.0 G/DL (32.0-36.0) Red Cell Distribution Width 13.5 % (11.6-14.8) Platelet Count 202 K/UL (150-450) Mean Platelet Volume 4.9 FL (6.5-10.1) L Neutrophils (%) (Auto) 71.4 % (45.0-75.0) Lymphocytes (%) (Auto) 14.1 % (20.0-45.0) L Monocytes (%) (Auto) 12.5 % (1.0-10.0) H Eosinophils (%) (Auto) 1.6 % (0.0-3.0) Basophils (%) (Auto) 0.4 % (0.0-2.0) Sodium Level 129 MMOL/L (136-145) L Potassium Level 4.2 MMOL/L (3.5-5.1) Chloride Level 95 MMOL/L (98-107) L Carbon Dioxide Level 29 MMOL/L (21-32) Anion Gap 5 mmol/L (5-15) Blood Urea Nitrogen 12 mg/dL (7-18) Creatinine 0.9 MG/DL (0.55-1.30) Estimat Glomerular Filtration Rate mL/min (>60) Glucose Level 98 MG/DL (74-106) Calcium Level 8.5 MG/DL (8.5-10.1) Objective HEAD AND NECK: No JVD. LUNGS: Decreased breath sounds. CARDIOVASCULAR: Regular, S1 and S2 with no gallop. ABDOMEN: Soft. EXTREMITIES: S/P left above-knee amputation and right foot ulcer bandaged. Willie Araya MD Dec 02, 2018 14:44
--- NOTE | 2018-12-02 14:59 | General Progress Note ---
Assessment/Plan Status Narrative Patient scheduled for surgery tomorrow. Spoke to family Assessment/Plan He will need AKA of right LE, will obtain cardiology clearance. At this time no active GI bleed. He has some bleed from his right foot. He is off of Plavix in preparation for surgery. Will check lab Subjective Date patient seen: Dec 02, 2018 ROS Limited/Unobtainable: No Constitutional: Reports: other - Pain RLE HEENT: Reports: no symptoms Cardiovascular: Reports: no symptoms Respiratory: Reports: no symptoms Gastrointestinal/Abdominal: Reports: no symptoms Genitourinary: Reports: no symptoms Neurologic/Psychiatric: Reports: no symptoms Endocrine: Reports: no symptoms Hematologic/Lymphatic: Reports: no symptoms Allergies: Coded Allergies: No Known Allergies (Unverified , 11/26/18) Subjective His bleeding stopped. I spoke to his sister. They had a family meeting and they ok'd his amputation. Awaiting cardiology clearance. Objective Last 24 Hour Vital Signs Date Time Temp Pulse Resp B/P (MAP) Pulse Ox O2 Delivery O2 Flow Rate FiO2 12/02/18 12:00 98.4 82 18 96/58 (71) 96 12/02/18 12:00 81 12/02/18 12:00 Room Air 12/02/18 08:45 119/66 12/02/18 08:00 Room Air 12/02/18 08:00 97.0 88 20 119/66 (83) 95 12/02/18 08:00 75 12/02/18 04:00 97.6 77 20 108/61 (77) 98 12/02/18 04:00 Room Air 12/02/18 03:31 84 12/02/18 00:00 98.4 83 20 108/61 (77) 97 12/02/18 00:00 Room Air 12/01/18 23:31 85 12/01/18 20:00 98.6 85 20 115/57 (76) 98 12/01/18 20:00 Room Air 12/01/18 19:24 81 12/01/18 16:00 Room Air 12/01/18 16:00 97.5 93 19 92/50 (64) 98 12/01/18 15:26 93 Intake and Output 12/01/18 12/02/18 19:00 07:00 Intake Total 538.8 ml 350.0 ml Output Total 850 ml 1100 ml Balance -311.2 ml -750.0 ml Intake Oral 360 ml 240 ml IV Total 178.8 ml 110.0 ml Output Urine Total 850 ml 1100 ml # Bowel Movements 2 Laboratory Tests 12/02/18 03:25: White Blood Count 7.3, Red Blood Count 3.44L, Hemoglobin 9.8L, Hematocrit 29.9L , Mean Corpuscular Volume 87, Mean Corpuscular Hemoglobin 28.6, Mean Corpuscular Hemoglobin Concent 33.0, Red Cell Distribution Width 13.5, Platelet Count 202, Mean Platelet Volume 4.9L, Neutrophils (%) (Auto) 71.4, Lymphocytes ( %) (Auto) 14.1L, Monocytes (%) (Auto) 12.5H, Eosinophils (%) (Auto) 1.6, Basophils (%) (Auto) 0.4, Sodium Level 129L, Potassium Level 4.2, Chloride Level 95L, Carbon Dioxide Level 29, Anion Gap 5, Blood Urea Nitrogen 12, Creatinine 0.9, Estimat Glomerular Filtration Rate , Glucose Level 98, Calcium Level 8.5 Height (Feet): 5 Height (Inches): 10.00 Weight (Pounds): 143 General Appearance: no apparent distress EENT: PERRL/EOMI Neck: non-tender, normal alignment, supple Cardiovascular: normal peripheral pulses Respiratory/Chest: lungs clear, normal breath sounds Abdomen: normal bowel sounds, non tender, soft Pelvis: normal external exam Genitourinary/Rectal: normal genital exam Extremities: other - Right LE osteo and poor circulation Edema: trace edema 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
--- NOTE | 2018-12-02 15:00 | NUR ---
NURSE NOTES: Dr. Han seen and examined patient. aware of current ABG results. Gave new orders. Orders entered, noted, and carried out. Will continue to monitor patient.
--- NOTE | 2018-12-02 15:26 | Surgery Progress Note ---
Surgery Progress Note Subjective Additional Comments no acute events. cardiology cleared for surgery. spoke with sister and patient. Objective Last 24 Hour Vital Signs Date Time Temp Pulse Resp B/P (MAP) Pulse Ox O2 Delivery O2 Flow Rate FiO2 12/02/18 12:00 98.4 82 18 96/58 (71) 96 12/02/18 12:00 81 12/02/18 12:00 Room Air 12/02/18 08:45 119/66 12/02/18 08:00 Room Air 12/02/18 08:00 97.0 88 20 119/66 (83) 95 12/02/18 08:00 75 12/02/18 04:00 97.6 77 20 108/61 (77) 98 12/02/18 04:00 Room Air 12/02/18 03:31 84 12/02/18 00:00 98.4 83 20 108/61 (77) 97 12/02/18 00:00 Room Air 12/01/18 23:31 85 12/01/18 20:00 98.6 85 20 115/57 (76) 98 12/01/18 20:00 Room Air 12/01/18 19:24 81 12/01/18 16:00 Room Air 12/01/18 16:00 97.5 93 19 92/50 (64) 98 12/01/18 15:26 93 I&O Intake and Output 12/01/18 12/02/18 19:00 07:00 Intake Total 538.8 ml 350.0 ml Output Total 850 ml 1100 ml Balance -311.2 ml -750.0 ml Intake Oral 360 ml 240 ml IV Total 178.8 ml 110.0 ml Output Urine Total 850 ml 1100 ml # Bowel Movements 2 Dressing: saturated Wound: other Drains: other Cardiovascular: RSR Respiratory: clear Abdomen: soft, non-tender, present bowel sounds, non-distended Extremities: edema, tenderness, cyanosis Laboratory Tests Test 12/02/18 03:25 White Blood Count 7.3 K/UL (4.8-10.8) Red Blood Count 3.44 M/UL (4.70-6.10) L Hemoglobin 9.8 G/DL (14.2-18.0) L Hematocrit 29.9 % (42.0-52.0) L Mean Corpuscular Volume 87 FL (80-99) Mean Corpuscular Hemoglobin 28.6 PG (27.0-31.0) Mean Corpuscular Hemoglobin Concent 33.0 G/DL (32.0-36.0) Red Cell Distribution Width 13.5 % (11.6-14.8) Platelet Count 202 K/UL (150-450) Mean Platelet Volume 4.9 FL (6.5-10.1) L Neutrophils (%) (Auto) 71.4 % (45.0-75.0) Lymphocytes (%) (Auto) 14.1 % (20.0-45.0) L Monocytes (%) (Auto) 12.5 % (1.0-10.0) H Eosinophils (%) (Auto) 1.6 % (0.0-3.0) Basophils (%) (Auto) 0.4 % (0.0-2.0) Sodium Level 129 MMOL/L (136-145) L Potassium Level 4.2 MMOL/L (3.5-5.1) Chloride Level 95 MMOL/L (98-107) L Carbon Dioxide Level 29 MMOL/L (21-32) Anion Gap 5 mmol/L (5-15) Blood Urea Nitrogen 12 mg/dL (7-18) Creatinine 0.9 MG/DL (0.55-1.30) Estimat Glomerular Filtration Rate mL/min (>60) Glucose Level 98 MG/DL (74-106) Calcium Level 8.5 MG/DL (8.5-10.1) Plan Problems: (1) Gastrointestinal hemorrhage Assessment & Plan: 78-year-old male with bright red blood per rectum likely secondary to recent prostate biopsy which is seem to have stopped. Severe anemia. possible GI bleed? GI eval appreciated AM labs trend labs monitor for bleeding. seems to have stopped since. other labs okay. (2) Prostatitis (3) Ulcerated, foot Assessment & Plan: Patient with prior left lower extremity amputation which he states is secondary to an prior infection in his left foot requiring amputation. He now presents with a significant right lower extremity foot infection with ischemia. The right foot has edema dorsal necrosis a very large open area with exposed muscle tendon subcutaneous fat weeping seropurulent fluid and with some fat necrosis identified. The heel has a blackish necrotic eschar the medial malleolus has a black necrotic eschar. No pulses are palpable. Patient has decreased sensation. There is a foul odor. Abnormal signal within the talus, distal tibia, upper posterior navicular. Findings are highly suspicious for acute osteomyelitis. More questionable signal abnormality of the calcaneus, may be reactive or could indicate early acute osteomyelitis changes. Soft tissue edema, likely cellulitis given stated clinical history. No definite focal drainable abscess collection demonstrated Abnormal marrow signal within the distal first metatarsal. This is highly suspicious for acute osteomyelitis Subtle increased STIR signal within the second proximal phalanx, without corresponding T1 signal abnormality. This could indicate reactive changes versus very early acute osteomyelitis Evidence of first and third toe amputations Chronic erosive changes as described Extensive diffuse soft tissue edema. Given stated clinical history, likely on the basis of cellulitis. No definite focal drainable abscess collection. There is evidence of medial soft tissue ulcer. AKA recommended - cleared for surgery continue with wound care Podiatry and Vascular input appreciated IV antibiotics will discuss with patient and PCP spoke with sister who states he wants to live and went through this with contralateral leg. she states he would want amputation to save life if possible. he expressed understanding as well and he states okay for surgery will plan for surgery tomorrow (4) Blood in stool Deven Baca Dec 02, 2018 15:26
--- NOTE | 2018-12-02 15:29 | NUR ---
NURSE NOTES: Per Dr. Baca, patient's sister Ms. Blanchard has consented for surgical procedure. Noted. Will continue to monitor patient.
--- NOTE | 2018-12-02 15:30 | Pre-Procedure Note/Attestation ---
Pre-Procedure Note/Attestation Complete Prior to Procedure Planned Procedure: right Procedure Narrative: right above knee amputation Indications for Procedure Pre-Operative Diagnosis: infected gangrene of right leg Attestation I attest that I discussed the nature of the procedure; its benefits; risks and complications; and alternatives (and the risks and benefits of such alternatives ), prior to the procedure, with the patient (or the patient's legal sales donor recruitment representative). I attest that, if there was a reasonable possibility of needing a blood transfusion, the patient (or the patient's legal sales donor recruitment representative) was given the [facility] standardized written summary, pursuant to the Indra Nicholas Blood Safety Act ([place] Health and Safety Code # 1645, as amended). I attest that I re-evaluated the patient just prior to the surgery and that there has been no change in the patient's H&P, except as documented below: Deven Baca Dec 02, 2018 15:30
--- NOTE | 2018-12-02 15:42 | NUR ---
NURSE NOTES: Obtained telephone consent for right above knee amputation from patient's sister, Ms. Blanchard . Per Ms. Blanchard, Dr. Baca has explained procedure to her. Noted. 2nd witness, PATT Mccain. Consent is in patient's chart.
[2018-12-02 16:00] VITALS: BP 98/47
--- NOTE | 2018-12-02 19:03 | NUR ---
NURSE NOTES: Report received from Orquidea Corcoran RN. Patient seen in bed in semi prabhakar position in room air with no acute respiratory distress present, sp02 is 98%. Alert, verbally responsive, able to make needs known, forgetful and confused at times. Denies any pain at this time. IV site to leleft AC 20g and right FA 20g is intact. COndom cath in place and is intact. Bed is in lowest position. call light is within easy reach while in bed. will continue to monitor.
--- NOTE | 2018-12-02 19:14 | Cardiology Report ---
APPROVED REPORT EXAM: Two-dimensional and M-mode echocardiogram with Doppler and color Doppler. INDICATION Chest Pain M-Mode DIMENSIONS IVSd1.2 (0.7-1.1cm)Left Atrium (MM)1.9 (1.6-4.0cm) LVDd4.2 (3.5-5.6cm)Aortic Root3.5 (2.0-3.7cm) PWd1.3 (0.7-1.1cm)Aortic Cusp Exc.1.6 (1.5-2.0cm) IVSs1.4 cm LVDs3.0 (2.5-4.0cm) PWs1.7 cm Other Information Quality : Poor Technically difficult study due to poor acoustical windows. Normal left ventricular chamber size, systolic function and wall motion to extent visualized. Left ventricular ejection fraction estimated to be 55%. No evidence of left ventricular hypertrophy. Anterior Echo-free space, may be due to pericardial fat or effusion. All other cardiac chamber sizes are within normal limits. Aortic valve calcification with normal cusp excursion . Mildly thickened mitral valve leaflets with normal excursion. Mild mitral annulus and aortic root calcification. Pulmonic valve not well visualized. IVC at normal size without physiologic collapse. A color flow and spectral Doppler study was performed and revealed: No aortic insufficiency . Mitral diastolic velocities suggest reduced left ventricular relaxation c/w mild LV diastolic dysfunction (Grade I ) Trace mitral regurgitation. Trace tricuspid regurgitation. Tricuspid systolic velocities suggests peak right ventricular systolic pressure of 15mmHg.
--- NOTE | 2018-12-02 19:16 | Diagnostic Imaging Report ---
APPROVED REPORT CPT Code: 27018 Present Symptoms Comments: RT LEG PAIN. RIGHT LEG: Venous imaging reveals recanalized chronic thrombus in the superficial femoral to popliteal veins. Imaging also reveals patency of the common femoral and calf veins. The greater saphenous vein is also within normal limits. Doppler indicates normal spontaneous flow within these segments.
--- NOTE | 2018-12-02 19:16 | Diagnostic Imaging Report ---
APPROVED REPORT CPT Code: 71377 Symptoms Right Comments: RIGHT LEG HAS HIP AND KNEE CONTRACTURE. Comments RIGHT LEG PAIN. RIGHT LEG: Common femoral artery waveform analysis is abnormal, suggestive of iliac arterial occlusive disease. A mild stenosis (30% - 40%) is seen in the proximal superficial femoral artery. Color flow duplex sonography reveals calcification throughout the superficial femoral and popliteal arteries. The posterior tibial anterior and dorsalis pedis arteries are patent. Doppler tibial artery waveform is monophasic, compatible with moderate ischemia on the right leg.
--- NOTE | 2018-12-02 19:25 | NUR ---
HAND-OFF: Report given to PATT Robles.
[2018-12-02 20:00] VITALS: BP 100/56
[2018-12-02] MEDS: Donepezil 5mg Tab ORAL SCH (20:38)
[2018-12-02] MEDS: Tamsulosin 0.4mg cap ORAL SCH (20:38)
[2018-12-02] MEDS: Vancomycin 750mg/NS 275ml IVPB SCH ×2 (20:38)
[2018-12-02] MEDS: Miralax 17gm pkt ORAL SCH (20:39)
[2018-12-03] VITALS (17 sets, daily range): BP systolic 87–113; BP diastolic 42–61
[2018-12-03 05:14] LABS: BASOPHILS % (AUTO) 0.5 % (0.0-2.0); EOSINOPHILS % (AUTO) 1.9 % (0.0-3.0); HEMATOCRIT 28.4 % (42.0-52.0); HEMOGLOBIN 9.3 G/DL (14.2-18.0); LYMPHOCYTES % (AUTO) 13.9 % (20.0-45.0); MEAN CORPUSCULAR VOLUME 87 FL (80-99); MONOCYTES % (AUTO) 12.9 % (1.0-10.0); NEUTROPHILS % (AUTO) 70.8 % (45.0-75.0); PLATELET COUNT 204 K/UL (150-450); RED BLOOD COUNT 3.27 M/UL (4.70-6.10); RED CELL DISTRIBUTION WIDTH 13.8 % (11.6-14.8); WHITE BLOOD COUNT 7.4 K/UL (4.8-10.8)
[2018-12-03] MEDS: Piperacillin/Tazobactam 3.375 GM in D5W 110 ML IVPB SCH ×3 (05:28→21:58)
[2018-12-03 05:47] LABS: ANION GAP 5 mmol/L (5-15); BLOOD UREA NITROGEN 12 mg/dL (7-18); CALCIUM 8.1 MG/DL (8.5-10.1); CARBON DIOXIDE 30 MMOL/L (21-32); CHLORIDE 97 MMOL/L (98-107); CREATININE 0.9 MG/DL (0.55-1.30); POTASSIUM 4.2 MMOL/L (3.5-5.1); SODIUM 132 MMOL/L (136-145)
--- NOTE | 2018-12-03 07:30 | NUR ---
HAND-OFF: Report given to Landy Funez RN.
--- NOTE | 2018-12-03 07:41 | NUR ---
NURSE NOTES: Report received from PATT Robles. Observed patient in bed sleeping. Arousable by voice and verbally responsive. Denies pain at this time. No distress noted in room air. Pt. is on NPO for procedure for today. IV site intact and patent. Bed in lowest position. Call light within reach. Will continue to monitor.
[2018-12-03] MEDS: Vancomycin 750mg/NS 275ml IVPB SCH ×4 (08:12→20:10)
[2018-12-03] MEDS: Lisinopril 10mg tab ORAL SCH (08:17)
--- NOTE | 2018-12-03 08:24 | NUR ---
NURSE NOTES: Patient's BP in this morning was low which is 87/46 in lying flat and 99/48 in Trendelenburg. Informed Dr. Baca regarding low BP with no new order at this time and doctor said that he will still do surgery for today. Charge nurse made aware.
[2018-12-03] MEDS: Docusate 100mg/10ml Liq ORAL SCH ×2 (08:26→20:10)
[2018-12-03] MEDS: Depakote 500mg tab ORAL SCH ×3 (08:26→17:16)
[2018-12-03] MEDS: Sodium Chloride 1gm Tab ORAL SCH ×2 (08:27→17:16)
[2018-12-03] MEDS: Ascorbic Acid 500mg tab ORAL SCH (08:27)
[2018-12-03] MEDS: Dakin's 0.25% (Half Strength) 16oz TOPIC SCH (08:27)
--- NOTE | 2018-12-03 09:35 | NUR ---
NURSE NOTES: Per Dr Marshal mccarthy low BP give 500 ml NS bolus .
--- NOTE | 2018-12-03 09:54 | Cardiac Electrophysiology PN ---
Assessment/Plan Assessment/Plan 1. Left bundle-branch block. The patient did not have any chest pain. Echocardiogram Nl EF and No WMA 2. Hypotension, DC lisinopril and add NS 500 cc bolus 3. Peripheral vascular disease, status post left above-knee amputation. FU Dr Borden. Likely would need aspirin and statin after Right AKA 4. Infected right ankle joint and gangrene evaluated by Dr. Borden and is scheduled right leg above-knee amputation. OK to proceed with the Right AKA. No further cardiac testing/medications will change the out come. MACKENZIE RN and Dr Baca Subjective Subjective NPO for AKA. BP is running in 80s. In SR with LBBB Objective Last 24 Hour Vital Signs Date Time Temp Pulse Resp B/P (MAP) Pulse Ox O2 Delivery O2 Flow Rate FiO2 12/03/18 08:17 99/48 12/03/18 08:00 97.7 74 22 88/42 (57) 98 12/03/18 04:00 Room Air 12/03/18 04:00 98.0 74 19 106/50 (68) 96 12/03/18 03:52 74 12/03/18 00:00 Room Air 12/03/18 00:00 97.6 75 18 102/58 (73) 97 12/02/18 23:27 77 12/02/18 20:00 98.0 75 19 100/56 (71) 96 12/02/18 20:00 Room Air 12/02/18 19:25 72 12/02/18 16:00 80 12/02/18 16:00 97.7 80 18 98/47 (64) 95 12/02/18 16:00 Room Air 12/02/18 12:00 98.4 82 18 96/58 (71) 96 12/02/18 12:00 81 12/02/18 12:00 Room Air Intake and Output 12/02/18 12/03/18 18:59 06:59 Intake Total 300 ml 532.500 ml Output Total 500 ml 1800 ml Balance -200 ml -1267.500 ml Intake Oral 300 ml 120 ml IV Total 412.500 ml Output Urine Total 500 ml 1800 ml Laboratory Tests Test 12/02/18 17:05 12/03/18 03:20 Vancomycin Level Trough 12.4 ug/mL (5.0-12.0) H White Blood Count 7.4 K/UL (4.8-10.8) Red Blood Count 3.27 M/UL (4.70-6.10) L Hemoglobin 9.3 G/DL (14.2-18.0) L Hematocrit 28.4 % (42.0-52.0) L Mean Corpuscular Volume 87 FL (80-99) Mean Corpuscular Hemoglobin 28.5 PG (27.0-31.0) Mean Corpuscular Hemoglobin Concent 32.8 G/DL (32.0-36.0) Red Cell Distribution Width 13.8 % (11.6-14.8) Platelet Count 204 K/UL (150-450) Mean Platelet Volume 4.9 FL (6.5-10.1) L Neutrophils (%) (Auto) 70.8 % (45.0-75.0) Lymphocytes (%) (Auto) 13.9 % (20.0-45.0) L Monocytes (%) (Auto) 12.9 % (1.0-10.0) H Eosinophils (%) (Auto) 1.9 % (0.0-3.0) Basophils (%) (Auto) 0.5 % (0.0-2.0) Sodium Level 132 MMOL/L (136-145) L Potassium Level 4.2 MMOL/L (3.5-5.1) Chloride Level 97 MMOL/L (98-107) L Carbon Dioxide Level 30 MMOL/L (21-32) Anion Gap 5 mmol/L (5-15) Blood Urea Nitrogen 12 mg/dL (7-18) Creatinine 0.9 MG/DL (0.55-1.30) Estimat Glomerular Filtration Rate mL/min (>60) Glucose Level 87 MG/DL (74-106) Calcium Level 8.1 MG/DL (8.5-10.1) L Objective HEAD AND NECK: No JVD. LUNGS: Decreased breath sounds. CARDIOVASCULAR: Regular, S1 and S2 with no gallop. ABDOMEN: Soft. EXTREMITIES: S/P left above-knee amputation and right foot ulcer Willie Araya MD Dec 03, 2018 09:54
--- NOTE | 2018-12-03 11:14 | GI Progress Note ---
Assessment/Plan Problems: (1) Osteomyelitis of ankle and foot ICD Codes: M86.9 - Osteomyelitis, unspecified SNOMED: 60456043 (2) Ulcer of right ankle ICD Codes: L97.319 - Non-pressure chronic ulcer of right ankle with unspecified severity SNOMED: 46446678, 472488309 (3) Right foot infection ICD Codes: L08.9 - Local infection of the skin and subcutaneous tissue, unspecified SNOMED: 975472398 (4) Gastrointestinal hemorrhage ICD Codes: K92.2 - Gastrointestinal hemorrhage, unspecified SNOMED: 39623891 Qualifiers: Qualified Codes: K92.2 - Gastrointestinal hemorrhage, unspecified (5) Blood in stool ICD Codes: K92.1 - Melena SNOMED: 14743874, 604335706 Status: unchanged Status Narrative Discussed with Dr. Forde Assessment/Plan Assessment - Rectal bleeding, ? resolved, stable H&H - anemia - PVD / gangrene Patient pending surgery OB stool positive x2 Recommendations - po diet - surgical f/u - monitor CBC - plan for colonoscopy after surgery The patient was seen and examined at bedside and all new and available data was reviewed in the patients chart. I agree with the above findings, impression and plan. (Patient seen earlier today. Signature stamp does not reflect patient encounter time.). - Dre Forde MD Subjective Subjective No rectal bleeding noted Tolerating diet Objective Last 24 Hour Vital Signs Date Time Temp Pulse Resp B/P (MAP) Pulse Ox O2 Delivery O2 Flow Rate FiO2 12/03/18 10:22 98/52 (67) 12/03/18 08:17 99/48 12/03/18 08:15 99/48 (65) 12/03/18 08:10 87/46 (60) 12/03/18 08:00 Room Air 12/03/18 08:00 76 12/03/18 08:00 97.7 74 22 88/42 (57) 98 12/03/18 04:00 Room Air 12/03/18 04:00 98.0 74 19 106/50 (68) 96 12/03/18 03:52 74 12/03/18 00:00 Room Air 12/03/18 00:00 97.6 75 18 102/58 (73) 97 12/02/18 23:27 77 3/26/19 20:00 98.0 75 19 100/56 (71) 96 12/02/18 20:00 Room Air 12/02/18 19:25 72 12/02/18 16:00 80 12/02/18 16:00 97.7 80 18 98/47 (64) 95 12/02/18 16:00 Room Air 12/02/18 12:00 98.4 82 18 96/58 (71) 96 12/02/18 12:00 81 12/02/18 12:00 Room Air Intake and Output 12/02/18 12/03/18 19:00 07:00 Intake Total 300 ml 532.500 ml Output Total 500 ml 1800 ml Balance -200 ml -1267.500 ml Intake Oral 300 ml 120 ml IV Total 412.500 ml Output Urine Total 500 ml 1800 ml Laboratory Tests Test 12/02/18 17:05 12/03/18 03:20 Vancomycin Level Trough 12.4 ug/mL (5.0-12.0) H White Blood Count 7.4 K/UL (4.8-10.8) Red Blood Count 3.27 M/UL (4.70-6.10) L Hemoglobin 9.3 G/DL (14.2-18.0) L Hematocrit 28.4 % (42.0-52.0) L Mean Corpuscular Volume 87 FL (80-99) Mean Corpuscular Hemoglobin 28.5 PG (27.0-31.0) Mean Corpuscular Hemoglobin Concent 32.8 G/DL (32.0-36.0) Red Cell Distribution Width 13.8 % (11.6-14.8) Platelet Count 204 K/UL (150-450) Mean Platelet Volume 4.9 FL (6.5-10.1) L Neutrophils (%) (Auto) 70.8 % (45.0-75.0) Lymphocytes (%) (Auto) 13.9 % (20.0-45.0) L Monocytes (%) (Auto) 12.9 % (1.0-10.0) H Eosinophils (%) (Auto) 1.9 % (0.0-3.0) Basophils (%) (Auto) 0.5 % (0.0-2.0) Sodium Level 132 MMOL/L (136-145) L Potassium Level 4.2 MMOL/L (3.5-5.1) Chloride Level 97 MMOL/L (98-107) L Carbon Dioxide Level 30 MMOL/L (21-32) Anion Gap 5 mmol/L (5-15) Blood Urea Nitrogen 12 mg/dL (7-18) Creatinine 0.9 MG/DL (0.55-1.30) Estimat Glomerular Filtration Rate mL/min (>60) Glucose Level 87 MG/DL (74-106) Calcium Level 8.1 MG/DL (8.5-10.1) L Height (Feet): 5 Height (Inches): 10.00 Weight (Pounds): 145 General Appearance: WD/WN, no apparent distress, alert, thin Cardiovascular: normal rate Respiratory/Chest: normal breath sounds, no respiratory distress Abdominal Exam: normal bowel sounds, non tender, soft Extremities: non-tender Shantelle Weinstein NP Dec 03, 2018 11:14
--- NOTE | 2018-12-03 12:17 | NUR ---
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 RIGHT FOOT GANGRENE VS: BP 87/46, P 73, T 97.3, RR 20 Sp02 98 RBC 3.27, Hgb 9.3, Hct 28.4, Na 132 IS:NS 500ml IV VANCOMYCIN 275ml IVPB PIPERACILLIN 110ml IVPB SDU STATUS
--- NOTE | 2018-12-03 13:47 | Anethesia Preoperative Eval ---
Anesthesia Pre-op PMH/ROS General Date of Evaluation: Dec 03, 2018 Anesthesiologist: Jonas ASA Score: ASA 4 Mallampati Score Class I : Soft palate, uvula, fauces, pillars visible Class II: Soft palate, uvula, fauces visible Class III: Soft palate, base of uvula visible Class IV: Only hard plate visible Mallampati Classification: Class II Surgeon: Phuong Diagnosis: Right leg gangrene Surgical Procedure: Right AKA Anesthesia History: none Family History: no anesthesia problems Allergies: Coded Allergies: No Known Allergies (Unverified , 11/26/18) Patient NPO?: Yes NPO Date: Dec 03, 2018 NPO Time: 0000 Past Medical History Cardiovascular: Reports: HTN, other - HLD, severe PVD; Denies: CAD, MA, valve dz, arrhythmia Pulmonary: Denies: asthma, COPD, ALBERTA, other Gastrointestinal/Genitourinary: Reports: other - BPH, prostatitis; Denies: GERD, CRI, ESRD Neurologic/Psychiatric: Reports: dementia, other - h/o seizures; Denies: CVA, depression/anxiety, TIA Endocrine: Reports: DM; Denies: hypothyroidism, steroids, other HEENT: Denies: cataract (L), cataract (R), glaucoma, [place]CK[place] (L), BU[place] (R), other Hematology/Immune: Reports: anemia - chronic; Denies: DVT, bleeding disorder, other Musculoskeletal/Integumentary: Denies: OA, RA, DJD, DDD, edema, other PSxH Narrative: Left AKA Anesthesia Pre-op Phys. Exam Physician Exam Last Vital Signs Date Time Temp Pulse Resp B/P (MAP) Pulse Ox O2 Delivery O2 Flow Rate FiO2 12/03/18 12:00 71 12/03/18 12:00 Room Air 12/03/18 11:46 97.3 20 99/55 (70) 98 11/27/18 12:00 2.0 Constitutional: NAD Cardiovascular: RRR Respiratory: CTA Airway Exam Mallampati Score: Class II MO: limited ROM: limited Anesthesia Pre-op A/P Labs Hematology Test 12/03/18 03:20 White Blood Count 7.4 K/UL (4.8-10.8) Red Blood Count 3.27 M/UL (4.70-6.10) L Hemoglobin 9.3 G/DL (14.2-18.0) L Hematocrit 28.4 % (42.0-52.0) L Mean Corpuscular Volume 87 FL (80-99) Mean Corpuscular Hemoglobin 28.5 PG (27.0-31.0) Mean Corpuscular Hemoglobin Concent 32.8 G/DL (32.0-36.0) Red Cell Distribution Width 13.8 % (11.6-14.8) Platelet Count 204 K/UL (150-450) Mean Platelet Volume 4.9 FL (6.5-10.1) L Neutrophils (%) (Auto) 70.8 % (45.0-75.0) Lymphocytes (%) (Auto) 13.9 % (20.0-45.0) L Monocytes (%) (Auto) 12.9 % (1.0-10.0) H Eosinophils (%) (Auto) 1.9 % (0.0-3.0) Basophils (%) (Auto) 0.5 % (0.0-2.0) Chemistry Test 12/03/18 03:20 Sodium Level 132 MMOL/L (136-145) L Potassium Level 4.2 MMOL/L (3.5-5.1) Chloride Level 97 MMOL/L (98-107) L Carbon Dioxide Level 30 MMOL/L (21-32) Anion Gap 5 mmol/L (5-15) Blood Urea Nitrogen 12 mg/dL (7-18) Creatinine 0.9 MG/DL (0.55-1.30) Estimat Glomerular Filtration Rate mL/min (>60) Glucose Level 87 MG/DL (74-106) Calcium Level 8.1 MG/DL (8.5-10.1) L Studies Pre-op Studies: EKG - st, LBBB=baseline, echo - EF 55%, tave mr and tr, no wall motion abnormalities Risk Assessment & Plan Assessment: ASA IV Plan: GA Status Change Before Surgery: No Pre-Antibiotics Drug: Odette Garza MD Dec 03, 2018 13:47
[2018-12-03] MEDS ORDERED: LR 1000ml 1,000 ML IVLG SCH (13:49)
--- NOTE | 2018-12-03 13:55 | NUR ---
HAND-OFF: Report given to PATT Coughlin from OR. Patient is in stable condition.
[2018-12-03] MEDS ORDERED: Sterile Water Irrig 1000ml IRRIG ONE (14:00)
[2018-12-03] MEDS ORDERED: LORazepam Inj 2mg/ml 1ml IV PRN (14:00)
[2018-12-03] MEDS ORDERED: fentaNYL 100 mcg/2 mL IV PRN (14:00)
[2018-12-03] MEDS ORDERED: Hydromorphone 0.5mg/0.5ml inj IVP PRN ×2 (14:00→15:30)
[2018-12-03] MEDS ORDERED: Etomidate 40mg/20ml Inj IV ONE (14:00)
[2018-12-03] MEDS ORDERED: DiphenhydrAMINE 50mg/ml Inj IVP PRN (14:00)
[2018-12-03] MEDS ORDERED: Midazolam 2mg/2ml Inj IVP PRN (14:00)
[2018-12-03] MEDS ORDERED: Metoclopramide 10mg/2ml Inj IVP PRN (14:00)
[2018-12-03] MEDS ORDERED: NS Irrig 1000ml ONE (14:00)
[2018-12-03] MEDS ORDERED: LR 1000ml ONE (14:00)
[2018-12-03] MEDS ORDERED: Propofol 200mg/20ml IV ONE (14:11)
[2018-12-03] MEDS ORDERED: Lidocaine 1% MPF 10mg/ml 5ml ONE (14:11)
[2018-12-03] MEDS ORDERED: Midazolam 2mg/2ml Inj ONE (14:12)
[2018-12-03] MEDS ORDERED: fentaNYL 100 mcg/2 mL IV ONE (14:12)
[2018-12-03] MEDS ORDERED: Bacitracin 50000 Units Vial ONE (14:29)
--- NOTE | 2018-12-03 15:28 | Brief Operative Note ---
Immediate Post Operative Note Operative Note Pre-op Diagnosis: infected gangrene of right leg Procedure: right above knee amputation Post-op Diagnosis: same as pre-op Surgeon: john Additional Surgeons: mirza Anesthesiologist: pooja Anesthesia: general Specimen: yes Complications: none Condition: stable Fluids: see records Estimated Blood Loss: volume - 50 Drains: other Implant(s) used?: No Deven Baca Dec 03, 2018 15:28
[2018-12-03] MEDS ORDERED: HYDROmorphone 1mg/ml Carpuject IVP PRN (15:30)
--- NOTE | 2018-12-03 15:36 | Immediate Post-Op Evaluation ---
Immediate Post-Op Evalulation Immediate Post-Op Evalulation Procedure: Right knee amputation Date of Evaluation: Dec 03, 2018 Time of Evaluation: 15:36 IV Fluids: 500 Blood Products: 0 Estimated Blood Loss: 50 Urinary Output: 300 Blood Pressure Systolic: 103 Blood Pressure Diastolic: 59 Pulse Rate: 86 Respiratory Rate: 16 O2 Sat by Pulse Oximetry: 99 Temperature (Fahrenheit): 98.7 Pain Score (1-10): 0 Nausea: No Vomiting: No Complications 0 Patient Status: awake, reacts, patent, none Hydration Status: adequate Drug: Vanco and Zosyn Given Within 1 Hr of Incision: Yes Odette Meier MD Dec 03, 2018 15:36
--- NOTE | 2018-12-03 16:10 | NUR ---
NURSE NOTES: Informed Dr. Lunsford that patient skip one dose of Zosyn due to surgery. Dr. Lunsford said that his source of infection is gone now so it is okay.
--- NOTE | 2018-12-03 16:30 | NUR ---
NURSE NOTES: Report received from PATT Nayak from OR. Patient came back to unit via hospital bed accompanied with RN. Pt. is alert and oriented x 1 by his name. On 2L of oxygen via N/C with no distress noted. Right surgical site is bandaged with SUZANNE wrap. No s/s of pain at this time. Bed in lowest position. Call light within reach. Will continue to monitor.
--- NOTE | 2018-12-03 16:42 | Infectious Diseases Prog Note ---
Assessment/Plan Assessment/Plan ASSESSMENT AND PLAN: 1. 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 Check followup chest x-ray and laboratories. 3. Anemia. 4. Gastrointestinal bleed. 5. History of benign prostatic hypertrophy. 6. Diabetes - tx per primary 7. Hypertension - tx per primary 8. bph, prostatitis 9. Dementia. 10. Seizures. 11. No known allergies. 12. Social history is negative. 13. Family history is noncontributory. 14. MAR was noted. 15. Case discussed with RN. 16. Continue treatment per primary consultants. Subjective Constitutional: Reports: fatigue; Denies: fever HEENT: Denies: coryza, congestion Respiratory: Denies: shortness of breath Cardiovascular: Denies: chest pain Gastrointestinal/Abdominal: Denies: nausea, vomiting, diarrhea Genitourinary: Reports: other - + jones Neurologic: Denies: headache Psychiatric: Denies: depression Skin: Denies: rash Hematologic: Denies: bleeding Musculoskeletal: Reports: other - left aka, right aka; Denies: pain Allergies: Coded Allergies: No Known Allergies (Unverified , 11/26/18) Objective Vital Signs Last 24 Hour Vital Signs Date Time Temp Pulse Resp B/P (MAP) Pulse Ox O2 Delivery O2 Flow Rate FiO2 12/03/18 16:15 98.1 81 102/53 100 Nasal Cannula 3 12/03/18 16:00 83 14 111/55 100 Nasal Cannula 3 12/03/18 15:50 84 16 110/57 99 Simple Mask 6 12/03/18 15:41 88 16 113/61 99 Simple Mask 6 12/03/18 15:36 90 16 110/61 99 Simple Mask 6 12/03/18 15:36 86 16 99 12/03/18 15:31 98.7 86 16 103/59 99 Simple Mask 6 12/03/18 12:00 71 12/03/18 12:00 Room Air 12/03/18 11:46 97.3 73 20 99/55 (70) 98 12/03/18 10:22 98/52 (67) 12/03/18 08:17 99/48 12/03/18 08:15 99/48 (65) 12/03/18 08:10 87/46 (60) 12/03/18 08:00 Room Air 12/03/18 08:00 76 12/03/18 08:00 97.7 74 22 88/42 (57) 98 12/03/18 04:00 Room Air 12/03/18 04:00 98.0 74 19 106/50 (68) 96 12/03/18 03:52 74 12/03/18 00:00 Room Air 12/03/18 00:00 97.6 75 18 102/58 (73) 97 12/02/18 23:27 77 12/02/18 20:00 98.0 75 19 100/56 (71) 96 12/02/18 20:00 Room Air 12/02/18 19:25 72 Height (Feet): 5 Height (Inches): 10.00 Weight (Pounds): 145 General Appearance: no acute distress HEENT: normocephalic, atraumatic, anicteric, mucous membranes moist, EOMI, supple, no JVD Respiratory/Chest: lungs clear, normal breath sounds, no respiratory distress, no accessory muscle use Cardiovascular: normal rate, regular rhythm, no gallop/murmur Abdomen: normal bowel sounds, soft, non tender, no organomegaly, non distended Genitourinary: other - + jones - urine slt cloudy Extremities: other - bilateral aka Skin: no rash 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 COMPARISON: No relevant prior studies available. FINDINGS: Lungs: Hypoventilatory lungs. Mild left lung base atelectasis. Vascularity within normal limits. Pleural space: Unremarkable. No pneumothorax. Heart: Unremarkable. No cardiomegaly. Mediastinum: Unremarkable. Bones/joints: Mild degenerative changes of the spine. IMPRESSION: Hypoventilatory lungs. Mild left lung base atelectasis. MRI - right foot - Impression: Abnormal marrow signal within the distal first metatarsal. This is highly suspicious for acute osteomyelitis Subtle increased STIR signal within the second proximal phalanx, without corresponding T1 signal abnormality. This could indicate reactive changes versus very early acute osteomyelitis Evidence of first and third toe amputations Chronic erosive changes as described Extensive diffuse soft tissue edema. Given stated clinical history, likely on the basis of cellulitis. No definite focal drainable abscess collection. There is evidence of medial soft tissue ulcer. MRI - right ankle - Impression: Limited exam, due to patient motion artifact Abnormal signal within the talus, distal tibia, upper posterior navicular. Findings are highly suspicious for acute osteomyelitis. More questionable signal abnormality of the calcaneus, may be reactive or could indicate early acute osteomyelitis changes. Soft tissue edema, likely cellulitis given stated clinical history. No definite focal drainable abscess collection demonstrated Microbiology Date/Time Source Procedure Growth Status 11/26/18 18:30 Nasal Nares MRSA Culture - Final NO METHICILLIN RESISTANT STAPH AUREUS... Complete 11/26/18 16:50 Urine,Clean Catch Urine Culture - Final Proteus Mirabilis Complete 11/26/18 22:00 Foot Right Gram Stain - Final Complete 11/26/18 22:00 Wound Culture - Final Pseudomonas Aeruginosa Diphtheroids Staphylococcus Aureus - Mrsa Complete Laboratory Tests Test 12/02/18 17:05 12/03/18 03:20 Vancomycin Level Trough 12.4 ug/mL (5.0-12.0) H White Blood Count 7.4 K/UL (4.8-10.8) Red Blood Count 3.27 M/UL (4.70-6.10) L Hemoglobin 9.3 G/DL (14.2-18.0) L Hematocrit 28.4 % (42.0-52.0) L Mean Corpuscular Volume 87 FL (80-99) Mean Corpuscular Hemoglobin 28.5 PG (27.0-31.0) Mean Corpuscular Hemoglobin Concent 32.8 G/DL (32.0-36.0) Red Cell Distribution Width 13.8 % (11.6-14.8) Platelet Count 204 K/UL (150-450) Mean Platelet Volume 4.9 FL (6.5-10.1) L Neutrophils (%) (Auto) 70.8 % (45.0-75.0) Lymphocytes (%) (Auto) 13.9 % (20.0-45.0) L Monocytes (%) (Auto) 12.9 % (1.0-10.0) H Eosinophils (%) (Auto) 1.9 % (0.0-3.0) Basophils (%) (Auto) 0.5 % (0.0-2.0) Sodium Level 132 MMOL/L (136-145) L Potassium Level 4.2 MMOL/L (3.5-5.1) Chloride Level 97 MMOL/L (98-107) L Carbon Dioxide Level 30 MMOL/L (21-32) Anion Gap 5 mmol/L (5-15) Blood Urea Nitrogen 12 mg/dL (7-18) Creatinine 0.9 MG/DL (0.55-1.30) Estimat Glomerular Filtration Rate mL/min (>60) Glucose Level 87 MG/DL (74-106) Calcium Level 8.1 MG/DL (8.5-10.1) L Current Medications Medications (Trade) Dose Ordered Sig/Nat Route PRN Reason Start Time Stop Time Status Last Admin Dose Admin Acetaminophen (Tylenol) 650 mg Q4H PRN ORAL For Pain 11/26/18 22:00 12/26/18 21:59 11/29/18 13:56 Acetaminophen (Tylenol) 650 mg Q4H PRN ORAL Mild Pain (Pain Scale 1-3) 12/03/18 14:00 12/03/18 20:00 Ascorbic Acid (Vitamin C) 500 mg DAILY ORAL 11/27/18 09:00 12/27/18 08:59 12/02/18 08:45 Diphenhydramine HCl (Benadryl) 25 mg Q15M PRN IVP Itching 12/03/18 14:00 12/03/18 20:00 Divalproex Sodium (Depakote) 500 mg TID ORAL 11/27/18 09:00 12/27/18 08:59 12/02/18 18:37 Docusate Sodium (Colace) 100 mg EVERY 12 HOURS ORAL 11/29/18 21:00 12/29/18 20:59 12/02/18 20:38 Donepezil HCl (Aricept) 5 mg BEDTIME ORAL 11/26/18 22:30 12/26/18 22:29 12/02/18 20:38 Fentanyl Citrate (Sublimaze 100 mcg/2 mL) 25 mcg Q10M PRN IV Moderate Pain (Pain Scale 4-6) 12/03/18 14:00 12/03/18 20:00 Ferrous Sulfate (Feosol) 325 mg BID ORAL 12/01/18 18:00 12/31/18 17:59 12/02/18 18:37 Hydralazine HCl (Apresoline) 5 mg Q30M PRN IV SBP>160 OR___/DBP>90 OR___ 12/03/18 14:00 12/03/18 20:00 Hydromorphone HCl (Dilaudid) 0.5 mg Q15M PRN IVP Severe Pain (Pain Scale 7-10) 12/03/18 14:00 12/03/18 20:00 Hydromorphone HCl (Dilaudid) 0.5 mg Q3H PRN IVP Pain Score 1-3 12/03/18 15:30 12/10/18 15:29 Hydromorphone HCl (Dilaudid) 1 mg Q3H PRN IVP pain score 4-6 12/03/18 15:30 12/10/18 15:29 Hydromorphone HCl (Dilaudid) 2 mg Q3H PRN IVP pain score 7-10 12/03/18 15:30 12/10/18 15:29 Lisinopril (Zestril) 10 mg DAILY ORAL 11/27/18 09:00 12/27/18 08:59 12/02/18 08:45 Lorazepam (Ativan 2mg/ml 1ml) 0.5 mg Q15M PRN IV For Anxiety 12/03/18 14:00 12/03/18 20:00 Metoclopramide HCl (Reglan) 10 mg Q1H PRN IVP Nausea & Vomiting 12/03/18 14:00 12/03/18 20:00 Midazolam HCl (Versed 2mg/2ml vial) 1 mg Q15M PRN IVP For Anxiety 12/03/18 14:00 12/03/18 20:00 Piperacillin Sod/ Tazobactam Sod 3.375 gm/Dextrose 110 ml @ 27.5 mls/hr EVERY 8 HOURS IVPB 12/01/18 22:00 12/06/18 21:59 12/03/18 05:28 Polyethylene Glycol (Miralax) 17 gm BEDTIME ORAL 11/28/18 21:00 12/28/18 20:59 12/02/18 20:39 Sodium Hypochlorite (Dakin's Half Strength) 1 applic DAILY TOPIC 11/28/18 13:30 12/28/18 13:29 12/02/18 08:46 Sodium Chloride (NaCl) 1 gm BID ORAL 12/02/18 09:00 12/04/18 21:00 12/02/18 18:36 Tamsulosin HCl (Flomax) 0.4 mg BEDTIME ORAL 11/26/18 22:30 12/26/18 22:29 12/02/18 20:38 Vancomycin HCl (Vanco rx to dose) 1 ea DAILY PRN MISC Per rx protocol 11/29/18 17:45 12/29/18 17:44 Vancomycin HCl 750 mg/Sodium Chloride 275 ml @ 183.333 mls/hr Q12H IVPB 12/02/18 20:00 12/07/18 19:59 12/03/18 08:12 Riki Lunsford MD Dec 03, 2018 16:42
[2018-12-03] MEDS ORDERED: NS 275ml ONE (17:59)
[2018-12-03] MEDS ORDERED: Tubing IV Secondary IV ONE (17:59)
--- NOTE | 2018-12-03 19:05 | NUR ---
NURSE NOTES: Report received from Landy Funez RN. Patient seen in bed in semi prabhakar position. S/P right AKA, denies any pain at this time. Alert, verbally responsive, able to make needs known with episode of confusion and forgetfulness. Noted with condom cath and is intact. IV site is to right FA 20g, and is intact. Bed is in lowest position. Call light is within easy reach while in bed. Will continue to monitor.
--- NOTE | 2018-12-03 19:23 | NUR ---
HAND-OFF: Report given to PATT Robles. Stable condition.
[2018-12-03] MEDS: Donepezil 5mg Tab ORAL SCH (20:11)
[2018-12-03] MEDS: Tamsulosin 0.4mg cap ORAL SCH (20:11)
[2018-12-03] MEDS: Miralax 17gm pkt ORAL SCH (20:13)
[2018-12-04] VITALS (7 sets, daily range): BP systolic 83–98; BP diastolic 7–57
--- NOTE | 2018-12-04 04:59 | NUR ---
NURSE NOTES: patient noted with 0 urine output since 12/03/091899. bladder scan performed, noted with [address] perez made aware with order for jones cath.
[2018-12-04] MEDS: Piperacillin/Tazobactam 3.375 GM in D5W 110 ML IVPB SCH ×3 (05:51→21:46)
[2018-12-04 07:23] LABS: BASOPHILS % (AUTO) 0.3 % (0.0-2.0); HEMATOCRIT 27.1 % (42.0-52.0); HEMOGLOBIN 8.7 G/DL (14.2-18.0); LYMPHOCYTES % (AUTO) 9.8 % (20.0-45.0); MEAN CORPUSCULAR VOLUME 87 FL (80-99); MONOCYTES % (AUTO) 8.7 % (1.0-10.0); NEUTROPHILS % (AUTO) 80.3 % (45.0-75.0); PLATELET COUNT 187 K/UL (150-450); WHITE BLOOD COUNT 8.4 K/UL (4.8-10.8)
--- NOTE | 2018-12-04 07:24 | NUR ---
HAND-OFF: Report given to Maddi Pierre RN.
--- NOTE | 2018-12-04 07:25 | NUR ---
NURSE NOTES: Report received from Palmira Aceves RN.Pt resting in bed asleep,noted no resp distress,on RA,no c/o post op pain or discomfort,pt S/P RT AKA, Diaz cath draining yellow urine,IV sites,x2 RFA 20G,and LH 22G,skin warm and dry,SR up x2 ,placed on modified supine ,pt's BP low in the 80's,asymptomatic,,bed lock in lowest position,will continue with plans of care.
[2018-12-04 07:26] LABS: ANION GAP 5 mmol/L (5-15); BLOOD UREA NITROGEN 18 mg/dL (7-18); CARBON DIOXIDE 30 MMOL/L (21-32); CHLORIDE 100 MMOL/L (98-107); POTASSIUM 4.1 MMOL/L (3.5-5.1); SODIUM 135 MMOL/L (136-145)
[2018-12-04] MEDS: Lisinopril 10mg tab ORAL SCH (09:00)
[2018-12-04] MEDS: Sodium Chloride 1gm Tab ORAL SCH ×2 (09:28→17:37)
[2018-12-04] MEDS: Ascorbic Acid 500mg tab ORAL SCH (09:28)
[2018-12-04] MEDS: Docusate 100mg/10ml Liq ORAL SCH ×2 (09:28→20:04)
[2018-12-04] MEDS: Depakote 500mg tab ORAL SCH ×3 (09:29→17:38)
[2018-12-04] MEDS: Vancomycin 750mg/NS 275ml IVPB SCH ×4 (09:29→20:04)
--- NOTE | 2018-12-04 09:39 | 48 Hour Post Anesthesia Eval ---
Post Anesthesia Evaluation Procedure: Right above knee amputation Date of Evaluation: Dec 04, 2018 Time of Evaluation: 09:38 Blood Pressure Systolic: 104 0: 56 Pulse Rate: 72 Respiratory Rate: 20 Temperature (Fahrenheit): 97.6 O2 Sat by Pulse Oximetry: 98 Airway: patent Nausea: No Vomiting: No Pain Intensity: 2 Hydration Status: adequate Cardiopulmonary Status: stable Mental Status/LOC: patient returned to baseline Follow-up Care/Observations: n/a Post-Anesthesia Complications: none Follow-up care needed: N/A Faizan Law MD Dec 04, 2018 09:39
--- NOTE | 2018-12-04 10:51 | Cardiac Electrophysiology PN ---
Assessment/Plan Assessment/Plan 1. Left bundle-branch block. The patient did not have any chest pain. Echocardiogram Nl EF and No WMA 2. Hypotension give another NS 500 cc bolus 3. Peripheral vascular disease, status post left above-knee amputation. FU Dr Borden. Likely would need aspirin and statin after Right AKA 4. Infected right ankle joint and gangrene evaluated by Dr. Borden and is scheduled right leg above-knee amputation. S/P Right AKA. Tolerated the surgery. MACKENZIE RN Subjective Subjective S/P AKA yesterday. BP is running in 80s again. In SR with LBBB Objective Last 24 Hour Vital Signs Date Time Temp Pulse Resp B/P (MAP) Pulse Ox O2 Delivery O2 Flow Rate FiO2 12/04/18 09:39 72 20 98 12/04/18 09:00 84/43 12/04/18 08:00 98.0 82 18 84/43 (57) 97 12/04/18 05:30 Nasal Cannula 2.0 12/04/18 04:00 97.9 90 16 90/46 (61) 95 12/04/18 04:00 Nasal Cannula 2.0 12/04/18 03:25 90 12/04/18 00:00 Nasal Cannula 2.0 12/04/18 00:00 96.4 85 20 98/49 (65) 96 12/03/18 23:25 82 12/03/18 20:00 Nasal Cannula 2.0 12/03/18 20:00 96.6 70 16 97/52 (67) 96 12/03/18 19:28 78 12/03/18 17:25 97.8 82 20 102/60 (74) 100 12/03/18 16:38 97.9 81 20 108/59 (75) 100 12/03/18 16:37 Nasal Cannula 2.0 12/03/18 16:15 98.1 81 102/53 100 Nasal Cannula 3 12/03/18 16:00 83 14 111/55 100 Nasal Cannula 3 12/03/18 16:00 81 12/03/18 15:50 84 16 110/57 99 Simple Mask 6 12/03/18 15:41 88 16 113/61 99 Simple Mask 6 12/03/18 15:36 90 16 110/61 99 Simple Mask 6 12/03/18 15:36 86 16 99 12/03/18 15:31 98.7 86 16 103/59 99 Simple Mask 6 12/03/18 12:00 71 12/03/18 12:00 Room Air 12/03/18 11:46 97.3 73 20 99/55 (70) 98 Intake and Output 12/03/18 12/04/18 18:59 06:59 Intake Total 1217.500 ml 485.000 ml Output Total 1120 ml 500 ml Balance 97.500 ml -15.000 ml Intake Oral 160 ml 100 ml IV Total 1057.500 ml 385.000 ml Output Urine Total 1100 ml 500 ml Estimated Blood Loss 20 ml # Bowel Movements 2 Laboratory Tests Test 12/04/18 06:44 White Blood Count 8.4 K/UL (4.8-10.8) Red Blood Count 3.10 M/UL (4.70-6.10) L Hemoglobin 8.7 G/DL (14.2-18.0) L Hematocrit 27.1 % (42.0-52.0) L Mean Corpuscular Volume 87 FL (80-99) Mean Corpuscular Hemoglobin 28.1 PG (27.0-31.0) Mean Corpuscular Hemoglobin Concent 32.2 G/DL (32.0-36.0) Red Cell Distribution Width 14.0 % (11.6-14.8) Platelet Count 187 K/UL (150-450) Mean Platelet Volume 4.7 FL (6.5-10.1) L Neutrophils (%) (Auto) 80.3 % (45.0-75.0) H Lymphocytes (%) (Auto) 9.8 % (20.0-45.0) L Monocytes (%) (Auto) 8.7 % (1.0-10.0) Eosinophils (%) (Auto) 1.0 % (0.0-3.0) Basophils (%) (Auto) 0.3 % (0.0-2.0) Sodium Level 135 MMOL/L (136-145) L Potassium Level 4.1 MMOL/L (3.5-5.1) Chloride Level 100 MMOL/L (98-107) Carbon Dioxide Level 30 MMOL/L (21-32) Anion Gap 5 mmol/L (5-15) Blood Urea Nitrogen 18 mg/dL (7-18) Creatinine 1.0 MG/DL (0.55-1.30) Estimat Glomerular Filtration Rate mL/min (>60) Glucose Level 70 MG/DL (74-106) L Calcium Level 8.0 MG/DL (8.5-10.1) L Vancomycin Level Trough 18.9 ug/mL (5.0-12.0) H Objective HEAD AND NECK: No JVD. LUNGS: Decreased breath sounds. CARDIOVASCULAR: Regular, S1 and S2 with no gallop. ABDOMEN: Soft. EXTREMITIES: S/P left above-knee amputation and new right AKA Willie Araya MD Dec 04, 2018 10:51
--- NOTE | 2018-12-04 11:27 | GI Progress Note ---
Assessment/Plan Problems: (1) Osteomyelitis of ankle and foot ICD Codes: M86.9 - Osteomyelitis, unspecified SNOMED: 62665693 (2) Ulcer of right ankle ICD Codes: L97.319 - Non-pressure chronic ulcer of right ankle with unspecified severity SNOMED: 34895616, 399686262 (3) Right foot infection ICD Codes: L08.9 - Local infection of the skin and subcutaneous tissue, unspecified SNOMED: 332024588 (4) Gastrointestinal hemorrhage ICD Codes: K92.2 - Gastrointestinal hemorrhage, unspecified SNOMED: 25547959 Qualifiers: Qualified Codes: K92.2 - Gastrointestinal hemorrhage, unspecified (5) Blood in stool ICD Codes: K92.1 - Melena SNOMED: 99947623, [id number] Status: progressing Status Narrative Discussed with Dr. Forde Assessment/Plan Assessment - Rectal bleeding, ? resolved, stable H&H - anemia - PVD / gangrene Status post right AKA OB stool positive x2 weeks Recommendations Will send for additional OB stool - po diet - surgical f/u - monitor CBC - PPI - plan for colonoscopy after surgery The patient was seen and examined at bedside and all new and available data was reviewed in the patients chart. I agree with the above findings, impression and plan. (Patient seen earlier today. Signature stamp does not reflect patient encounter time.). - Dre Forde MD Subjective Subjective Limited Objective Last 24 Hour Vital Signs Date Time Temp Pulse Resp B/P (MAP) Pulse Ox O2 Delivery O2 Flow Rate FiO2 12/04/18 09:39 72 20 98 12/04/18 09:00 84/43 12/04/18 08:00 98.0 82 18 84/43 (57) 97 12/04/18 05:30 Nasal Cannula 2.0 12/04/18 04:00 97.9 90 16 90/46 (61) 95 12/04/18 04:00 Nasal Cannula 2.0 12/04/18 03:25 90 12/04/18 00:00 Nasal Cannula 2.0 12/04/18 00:00 96.4 85 20 98/49 (65) 96 12/03/18 23:25 82 12/03/18 20:00 Nasal Cannula 2.0 12/03/18 20:00 96.6 70 16 97/52 (67) 96 12/03/18 19:28 78 12/03/18 17:25 97.8 82 20 102/60 (74) 100 12/03/18 16:38 97.9 81 20 108/59 (75) 100 12/03/18 16:37 Nasal Cannula 2.0 12/03/18 16:15 98.1 81 102/53 100 Nasal Cannula 3 12/03/18 16:00 83 14 111/55 100 Nasal Cannula 3 12/03/18 16:00 81 12/03/18 15:50 84 16 110/57 99 Simple Mask 6 12/03/18 15:41 88 16 113/61 99 Simple Mask 6 12/03/18 15:36 90 16 110/61 99 Simple Mask 6 12/03/18 15:36 86 16 99 12/03/18 15:31 98.7 86 16 103/59 99 Simple Mask 6 12/03/18 12:00 71 12/03/18 12:00 Room Air 12/03/18 11:46 97.3 73 20 99/55 (70) 98 Intake and Output 12/03/18 12/04/18 18:59 06:59 Intake Total 1217.500 ml 485.000 ml Output Total 1120 ml 500 ml Balance 97.500 ml -15.000 ml Intake Oral 160 ml 100 ml IV Total 1057.500 ml 385.000 ml Output Urine Total 1100 ml 500 ml Estimated Blood Loss 20 ml # Bowel Movements 2 Laboratory Tests Test 12/04/18 06:44 White Blood Count 8.4 K/UL (4.8-10.8) Red Blood Count 3.10 M/UL (4.70-6.10) L Hemoglobin 8.7 G/DL (14.2-18.0) L Hematocrit 27.1 % (42.0-52.0) L Mean Corpuscular Volume 87 FL (80-99) Mean Corpuscular Hemoglobin 28.1 PG (27.0-31.0) Mean Corpuscular Hemoglobin Concent 32.2 G/DL (32.0-36.0) Red Cell Distribution Width 14.0 % (11.6-14.8) Platelet Count 187 K/UL (150-450) Mean Platelet Volume 4.7 FL (6.5-10.1) L Neutrophils (%) (Auto) 80.3 % (45.0-75.0) H Lymphocytes (%) (Auto) 9.8 % (20.0-45.0) L Monocytes (%) (Auto) 8.7 % (1.0-10.0) Eosinophils (%) (Auto) 1.0 % (0.0-3.0) Basophils (%) (Auto) 0.3 % (0.0-2.0) Sodium Level 135 MMOL/L (136-145) L Potassium Level 4.1 MMOL/L (3.5-5.1) Chloride Level 100 MMOL/L (98-107) Carbon Dioxide Level 30 MMOL/L (21-32) Anion Gap 5 mmol/L (5-15) Blood Urea Nitrogen 18 mg/dL (7-18) Creatinine 1.0 MG/DL (0.55-1.30) Estimat Glomerular Filtration Rate mL/min (>60) Glucose Level 70 MG/DL (74-106) L Calcium Level 8.0 MG/DL (8.5-10.1) L Vancomycin Level Trough 18.9 ug/mL (5.0-12.0) H Height (Feet): 5 Height (Inches): 10.00 Weight (Pounds): 145 General Appearance: WD/WN, no apparent distress, alert Cardiovascular: normal rate Respiratory/Chest: normal breath sounds, no respiratory distress Abdominal Exam: normal bowel sounds, non tender, soft Objective No recurrent rectal bleeding Tolerating diet Shantelle Weinstein NP Dec 04, 2018 11:27
--- NOTE | 2018-12-04 11:30 | NUR ---
NURSE NOTES: Dr Thompson in here ,updated re pt's status .and low bp,ordered to give 500 ml NS bolus
--- NOTE | 2018-12-04 11:32 | NUR ---
RD ASSESSMENT & RECOMMENDATIONS SEE CARE ACTIVITY FOR COMPLETE ASSESSMENT DAILY ESTIMATED NEEDS: Needs based on WOUNDS/ 61kg 30-35 kcals/kg 4902-0599 total kcals 1.5-2.0 g protein/kg 91-122 g total protein 25-30 mL/kg 2698-7252 total fluid mLs NUTRITION DIAGNOSIS: Increased kcal/prot needs R/T wound healing as evidenced by pt admitted w/ nonsalvageable right leg with extensive gangrenous necrosis of the foot and ankle, s/p RT AKA. CURRENT DIET:FULL LIQUID DIET PO DIET RECOMMENDATIONS: REGULAR/ texture per [employer] or as tolerated ADDITIONAL RECOMMENDATIONS: * Calibrated bedscale wt for accurate CBW * WOUND HEALING: add MVI w/ min x 1, increase vit C to 500mg BID :Alejandro 1pkt BID * Consider [employer] eval for appropriate texture. * A1C for eval of glycemic control- h/o DM * Monitor BGs, need for carb controlled diet. * Snacks in b/w meals to prevent hypoglycemia
--- NOTE | 2018-12-04 15:03 | General Progress Note ---
Progress Note Progress Note Surgery: doing well post op. comfortable. stable. tolerated surgery well. dressings clean and dry. labs okay. plan for colonoscopy by GI soon okay from surgical standpoint leave dressing in place Deven Baca Dec 04, 2018 15:03
--- NOTE | 2018-12-04 15:05 | Infectious Diseases Prog Note ---
Assessment/Plan Assessment/Plan ASSESSMENT AND PLAN: 1. 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 Check followup chest x-ray and laboratories. 3. Anemia. 4. Gastrointestinal bleed. 5. History of benign prostatic hypertrophy. 6. Diabetes - tx per primary 7. Hypertension - tx per primary 8. bph, prostatitis 9. Dementia. 10. Seizures. 11. No known allergies. 12. Social history is negative. 13. Family history is noncontributory. 14. MAR was noted. 15. Case discussed with RN. 16. Continue treatment per primary consultants. Subjective Constitutional: Reports: fatigue, other - more alert ; Denies: fever HEENT: Denies: congestion Respiratory: Denies: shortness of breath Cardiovascular: Denies: chest pain Gastrointestinal/Abdominal: Denies: nausea, vomiting, diarrhea Genitourinary: Reports: other - jones Neurologic: Denies: headache Skin: Denies: rash Hematologic: Denies: bleeding Musculoskeletal: Reports: other - bilateral leg amputation Allergies: Coded Allergies: No Known Allergies (Unverified , 11/26/18) Objective Vital Signs Last 24 Hour Vital Signs Date Time Temp Pulse Resp B/P (MAP) Pulse Ox O2 Delivery O2 Flow Rate FiO2 12/04/18 12:00 Nasal Cannula 2.0 12/04/18 12:00 97.9 81 20 83/7 (32) 96 12/04/18 11:49 80 12/04/18 09:39 72 20 98 12/04/18 09:00 84/43 12/04/18 08:00 82 12/04/18 08:00 Nasal Cannula 2.0 12/04/18 08:00 98.0 82 18 84/43 (57) 97 12/04/18 05:30 Nasal Cannula 2.0 12/04/18 04:00 97.9 90 16 90/46 (61) 95 12/04/18 04:00 Nasal Cannula 2.0 12/04/18 03:25 90 12/04/18 00:00 Nasal Cannula 2.0 12/04/18 00:00 96.4 85 20 98/49 (65) 96 12/03/18 23:25 82 12/03/18 20:00 Nasal Cannula 2.0 12/03/18 20:00 96.6 70 16 97/52 (67) 96 12/03/18 19:28 78 12/03/18 17:25 97.8 82 20 102/60 (74) 100 12/03/18 16:38 97.9 81 20 108/59 (75) 100 12/03/18 16:37 Nasal Cannula 2.0 12/03/18 16:15 98.1 81 102/53 100 Nasal Cannula 3 12/03/18 16:00 83 14 111/55 100 Nasal Cannula 3 12/03/18 16:00 81 12/03/18 15:50 84 16 110/57 99 Simple Mask 6 12/03/18 15:41 88 16 113/61 99 Simple Mask 6 12/03/18 15:36 90 16 110/61 99 Simple Mask 6 12/03/18 15:36 86 16 99 12/03/18 15:31 98.7 86 16 103/59 99 Simple Mask 6 Height (Feet): 5 Height (Inches): 10.00 Weight (Pounds): 145 General Appearance: no acute distress HEENT: normocephalic, atraumatic, anicteric, mucous membranes moist Respiratory/Chest: lungs clear, normal breath sounds, no respiratory distress, no accessory muscle use Cardiovascular: normal rate, regular rhythm, no gallop/murmur, no JVD Abdomen: normal bowel sounds, soft, non tender, no organomegaly, non distended Genitourinary: other - + jones - urine clear Extremities: other - bilateral leg amputation Skin: no rash Neurologic/Psychiatric: administrator health care facility II-XII grossly normal, alert, responsive Lymphatic: no neck adenopathy, no groin adenopathy Musculoskeletal: other - bilateral leg ampuation Objective 11/30/18 - Chest x-ray - TECHNIQUE: Frontal view of the chest. COMPARISON: No relevant prior studies available. FINDINGS: Lungs: Hypoventilatory lungs. Mild left lung base atelectasis. Vascularity within normal limits. Pleural space: Unremarkable. No pneumothorax. Heart: Unremarkable. No cardiomegaly. Mediastinum: Unremarkable. Bones/joints: Mild degenerative changes of the spine. IMPRESSION: Hypoventilatory lungs. Mild left lung base atelectasis. MRI - right foot - Impression: Abnormal marrow signal within the distal first metatarsal. This is highly suspicious for acute osteomyelitis Subtle increased STIR signal within the second proximal phalanx, without corresponding T1 signal abnormality. This could indicate reactive changes versus very early acute osteomyelitis Evidence of first and third toe amputations Chronic erosive changes as described Extensive diffuse soft tissue edema. Given stated clinical history, likely on the basis of cellulitis. No definite focal drainable abscess collection. There is evidence of medial soft tissue ulcer. MRI - right ankle - Impression: Limited exam, due to patient motion artifact Abnormal signal within the talus, distal tibia, upper posterior navicular. Findings are highly suspicious for acute osteomyelitis. More questionable signal abnormality of the calcaneus, may be reactive or could indicate early acute osteomyelitis changes. Soft tissue edema, likely cellulitis given stated clinical history. No definite focal drainable abscess collection demonstrated Microbiology Date/Time Source Procedure Growth Status 11/26/18 18:30 Nasal Nares MRSA Culture - Final NO METHICILLIN RESISTANT STAPH AUREUS... Complete 11/26/18 16:50 Urine,Clean Catch Urine Culture - Final Proteus Mirabilis Complete 11/26/18 22:00 Foot Right Gram Stain - Final Complete 11/26/18 22:00 Wound Culture - Final Pseudomonas Aeruginosa Diphtheroids Staphylococcus Aureus - Mrsa Complete Laboratory Tests Test 12/04/18 06:44 White Blood Count 8.4 K/UL (4.8-10.8) Red Blood Count 3.10 M/UL (4.70-6.10) L Hemoglobin 8.7 G/DL (14.2-18.0) L Hematocrit 27.1 % (42.0-52.0) L Mean Corpuscular Volume 87 FL (80-99) Mean Corpuscular Hemoglobin 28.1 PG (27.0-31.0) Mean Corpuscular Hemoglobin Concent 32.2 G/DL (32.0-36.0) Red Cell Distribution Width 14.0 % (11.6-14.8) Platelet Count 187 K/UL (150-450) Mean Platelet Volume 4.7 FL (6.5-10.1) L Neutrophils (%) (Auto) 80.3 % (45.0-75.0) H Lymphocytes (%) (Auto) 9.8 % (20.0-45.0) L Monocytes (%) (Auto) 8.7 % (1.0-10.0) Eosinophils (%) (Auto) 1.0 % (0.0-3.0) Basophils (%) (Auto) 0.3 % (0.0-2.0) Sodium Level 135 MMOL/L (136-145) L Potassium Level 4.1 MMOL/L (3.5-5.1) Chloride Level 100 MMOL/L (98-107) Carbon Dioxide Level 30 MMOL/L (21-32) Anion Gap 5 mmol/L (5-15) Blood Urea Nitrogen 18 mg/dL (7-18) Creatinine 1.0 MG/DL (0.55-1.30) Estimat Glomerular Filtration Rate mL/min (>60) Glucose Level 70 MG/DL (74-106) L Calcium Level 8.0 MG/DL (8.5-10.1) L Vancomycin Level Trough 18.9 ug/mL (5.0-12.0) H Current Medications Medications (Trade) Dose Ordered Sig/Nat Route PRN Reason Start Time Stop Time Status Last Admin Dose Admin Acetaminophen (Tylenol) 650 mg Q4H PRN ORAL For Pain 11/26/18 22:00 12/26/18 21:59 12/04/18 11:27 Ascorbic Acid (Vitamin C) 500 mg DAILY ORAL 11/27/18 09:00 12/27/18 08:59 12/04/18 09:28 Bisacodyl (Dulcolax) 10 mg ONCE ORAL 12/04/18 16:00 12/04/18 17:00 Divalproex Sodium (Depakote) 500 mg TID ORAL 11/27/18 09:00 12/27/18 08:59 12/04/18 12:51 Docusate Sodium (Colace) 100 mg EVERY 12 HOURS ORAL 11/29/18 21:00 12/29/18 20:59 12/04/18 09:28 Donepezil HCl (Aricept) 5 mg BEDTIME ORAL 11/26/18 22:30 12/26/18 22:29 12/03/18 20:11 Ferrous Sulfate (Feosol) 325 mg BID ORAL 12/01/18 18:00 12/31/18 17:59 12/04/18 09:28 Hydromorphone HCl (Dilaudid) 0.5 mg Q3H PRN IVP Pain Score 1-3 12/03/18 15:30 12/10/18 15:29 12/04/18 03:22 Hydromorphone HCl (Dilaudid) 1 mg Q3H PRN IVP pain score 4-6 12/03/18 15:30 12/10/18 15:29 Hydromorphone HCl (Dilaudid) 2 mg Q3H PRN IVP pain score 7-10 12/03/18 15:30 12/10/18 15:29 Lisinopril (Zestril) 10 mg DAILY ORAL 11/27/18 09:00 12/27/18 08:59 12/02/18 08:45 Magnesium Citrate (Citrate Of Magnesia) 300 ml ONCE ONCE ORAL 12/04/18 16:00 12/04/18 16:01 Piperacillin Sod/ Tazobactam Sod 3.375 gm/Dextrose 110 ml @ 27.5 mls/hr EVERY 8 HOURS IVPB 12/01/18 22:00 12/06/18 21:59 12/04/18 13:42 Polyethylene Glycol (Miralax) 17 gm BEDTIME ORAL 11/28/18 21:00 12/28/18 20:59 12/03/18 20:13 Polyethylene Glycol (Miralax) 238 gm ONCE ORAL 12/04/18 16:00 12/04/18 23:59 Sodium Chloride (NaCl) 1 gm BID ORAL 12/02/18 09:00 12/04/18 21:00 12/04/18 09:28 Tamsulosin HCl (Flomax) 0.4 mg BEDTIME ORAL 11/26/18 22:30 12/26/18 22:29 12/03/18 20:11 Vancomycin HCl (Vanco rx to dose) 1 ea DAILY PRN MISC Per rx protocol 11/29/18 17:45 12/29/18 17:44 Vancomycin HCl 750 mg/Sodium Chloride 275 ml @ 183.333 mls/hr Q12H IVPB 12/02/18 20:00 12/07/18 19:59 12/04/18 09:29 Riki Lunsford MD Dec 04, 2018 15:05
[2018-12-04] MEDS ORDERED: Bisacodyl EC 5mg tab ORAL SCH (16:00)
[2018-12-04] MEDS ORDERED: Magnesium Citrate Liq Btl ORAL ONE (16:00)
[2018-12-04] MEDS ORDERED: Polyethylene Glycol 238gm bottle ORAL SCH (16:00)
--- NOTE | 2018-12-04 17:00 | NUR ---
NURSE NOTES: pt for EGD and Colonoscopy, called pt's sister Raissa for consent ,explained re risk and benefits,consent agreed by phone ,witnessed by another RN.
--- NOTE | 2018-12-04 17:30 | NUR ---
NURSE NOTES: prep for colonoscopy,Magcitrate annd Dulcolax 2 tabs, given. tolerated well.Polyethylene Glycol mixed with Gatorade initiated,
--- NOTE | 2018-12-04 19:15 | NUR ---
HAND-OFF: Report given to Preethi Cantrell RN,endorsed to keep giving the Ethylene Glycoluntil done and NPO post MN.
--- NOTE | 2018-12-04 19:20 | NUR ---
NURSE NOTES: Received patient from Maddi Pierre RN. Patient is resting in bed. Shows no signs and symptoms of pain and/or distress. Patient will be NPO at midnight. Will continue plan of care.
[2018-12-04] MEDS: Tamsulosin 0.4mg cap ORAL SCH (20:04)
[2018-12-04] MEDS: Miralax 17gm pkt ORAL SCH (20:04)
[2018-12-04] MEDS: Donepezil 5mg Tab ORAL SCH (20:04)
--- NOTE | 2018-12-04 23:00 | Operative Note - Dictated ---
DATE OF OPERATION: 12/03/2018 PREOPERATIVE DIAGNOSIS: Right lower extremity infection with gangrene and significant tissue loss. POSTOPERATIVE DIAGNOSIS: Right lower extremity infection with gangrene and significant tissue loss. OPERATION PERFORMED: Right above-knee amputation. ATTENDING SURGEON: Deven Baca M.D. OFFICE RN: Casi Garza MD. ANESTHESIOLOGIST: Dr. Mcdaniel. ANESTHESIA: General FITNESS CONSULTANT. ESTIMATED BLOOD LOSS: 50 mL. IV FLUIDS: Please see anesthesia records. COMPLICATIONS: None. DRAINS: None. SPECIMENS: Right [id number] amputation. WOUND CLASSIFICATION: Class 3. IMPLANTS: None. COUNTS: Sponge and needle count correct x2. INDICATIONS FOR PROCEDURE: This is an 78-year-old male with multiple medical comorbidities, who presented to [facility] with active infectious process as well as a potential gastrointestinal bleed. On admission, the patient was identified to have a large foul-smelling purulent drainage, ischemic gangrene wound on his right lower extremity at the level of the foot and ankle. The extremity edema and cellulitis was tracking proximally. The patient was identified to have significant peripheral vascular disease. A MRI of the foot was obtained, which identified abnormal signals highly suspicious for acute osteomyelitis with evidence of prior toe amputations, erosive chronic changes, and diffuse soft tissue edema with diffuse soft tissue edema. Furthermore ankle MRI identified abnormal signals within the talus, distal tibia, upper posterior navicular, very highly suspicious for acute osteomyelitis with cellulitis as well. Given these findings and the patient's clinical exam and above, Vascular Surgery and Podiatry evaluated the patient and limb salvage was not possible. It was recommended that the patient have an amputation. Given these findings and last year findings, an [id number] amputation was recommended. Of note, the patient had a prior above-knee amputation on the left side for similar event. The patient expressed understanding and stated this happened before his left lower extremity ending in a above-knee amputation on the left side. The patient states that he understands and when asked for recommendations, we recommended the patient to have a right above-knee amputation. He expressed understanding and consented for surgery. I spoke with the patient's sister over the phone who expressed that she remembers when he had his initial amputation on the left side for similar events and he is since prior to that and he has expressed desire for continuation of life regardless of what surgery or what condition he entails and surgery if indicated, would want surgery and helps this patient with consent. The patient was scheduled for surgery on 12/03/2018. OPERATIVE NOTE: The patient is taken to the operating room and placed on the operating table in supine position with bilateral arms out. All bony prominences were well padded. SCDs were placed. Preoperative time-out was taken in identifying the patient, procedure, operative staff, and surgical staff. The general anesthesia was induced and the patient was intubated. The right lower extremity was prepped and draped in standard surgical fashion. The anterior and posterior skin flaps for fishmouth flap were outlined using a marking pen approximately 5 to 10 cm proximal to the knee joint. The skin incision was performed with a #10 scalpel and deepened through the subcutaneous tissue until the muscular fascia was identified. The greater saphenous vein was identified and ligated using a 3-0 silk tie and divided. Electrocautery was used and muscle groups over the anterior and medial thigh were divided at the same level of the skin incision. The neurovascular bundle was identified on the medial aspect of the thigh. The popliteal artery and vein were identified and were significantly calcified. The artery was noted to be significantly calcified. They were ligated using #0 silk ties. The sciatic nerve was identified, pulled, and ligated using a 2-0 silk tie and divided. The posterior thigh muscles were then divided with electrocautery at the same level of the skin incision following this. Once the muscle groups were circumferentially divided out, the periosteum was incised and elevated approximately 5 cm more proximal off the femur. The femur was then divided using an electrical saw without complication. The proximal end of the transected femur was smoothed out using a file. The amputation stump was irrigated with copious amounts of antibiotic solution. The specimen was sent off for gross to pathology. Hemostasis was secured by electrocautery and 3-0 silk ties. The periosteum was then closed with a running 3-0 Vicryl suture over the transected femur. The fascia of the inner thigh muscles were then reapproximated using interrupted #0 Vicryl sutures. The wound was cleansed and the skin was reapproximated using surgical lokesh. Xeroform, gauze, Kerlix, and dressings were applied. The patient tolerated the procedure well, was extubated, and taken to postanesthetic care unit in stable condition. Deven Radha Baca DR: AMMON JOB#: [id number] CC: [email or web address]
[2018-12-05] VITALS (8 sets, daily range): BP systolic 81–105; BP diastolic 47–58
--- NOTE | 2018-12-05 03:26 | General Progress Note ---
Assessment/Plan Status: doing well Status Narrative Doing well post-op Assessment/Plan He will need AKA of right LE, will obtain cardiology clearance. At this time no active GI bleed. He has some bleed from his right foot. He is off of Plavix in preparation for surgery. Will check lab Subjective Date patient seen: Dec 04, 2018 Time patient seen: 19:10 ROS Limited/Unobtainable: Yes Constitutional: Reports: no symptoms HEENT: Reports: no symptoms Cardiovascular: Reports: no symptoms Respiratory: Reports: no symptoms Gastrointestinal/Abdominal: Reports: no symptoms Genitourinary: Reports: no symptoms Neurologic/Psychiatric: Reports: no symptoms Endocrine: Reports: no symptoms Hematologic/Lymphatic: Reports: no symptoms Allergies: Coded Allergies: No Known Allergies (Unverified , 11/26/18) Subjective His bleeding stopped. I spoke to his sister. They had a family meeting and they ok'd his amputation. Awaiting cardiology clearance. Objective Last 24 Hour Vital Signs Date Time Temp Pulse Resp B/P (MAP) Pulse Ox O2 Delivery O2 Flow Rate FiO2 12/05/18 00:00 97.8 84 20 102/49 (66) 96 12/05/18 00:00 Nasal Cannula 2.0 12/04/18 23:35 90 12/04/18 20:00 96.1 83 20 95/51 (66) 96 12/04/18 20:00 Nasal Cannula 2.0 12/04/18 19:10 81 12/04/18 16:18 Nasal Cannula 2.0 12/04/18 16:00 97.7 77 20 91/44 (60) 97 12/04/18 16:00 72 12/04/18 12:01 97.9 81 20 83/57 (66) 96 12/04/18 12:00 Nasal Cannula 2.0 12/04/18 11:49 80 12/04/18 09:39 72 20 98 12/04/18 09:00 84/43 12/04/18 08:00 82 12/04/18 08:00 Nasal Cannula 2.0 12/04/18 08:00 98.0 82 18 84/43 (57) 97 12/04/18 05:30 Nasal Cannula 2.0 12/04/18 04:00 97.9 90 16 90/46 (61) 95 12/04/18 04:00 Nasal Cannula 2.0 12/04/18 03:25 90 Intake and Output 12/04/18 12/05/18 19:00 07:00 Intake Total 940 ml 385.00 ml Output Total 700 ml Balance 240 ml 385.00 ml Intake Oral 940 ml IV Total 385.00 ml Output Urine Total 700 ml # Bowel Movements 1 Laboratory Tests 12/04/18 06:44: White Blood Count 8.4, Red Blood Count 3.10L, Hemoglobin 8.7L, Hematocrit 27.1L , Mean Corpuscular Volume 87, Mean Corpuscular Hemoglobin 28.1, Mean Corpuscular Hemoglobin Concent 32.2, Red Cell Distribution Width 14.0, Platelet Count 187, Mean Platelet Volume 4.7L, Neutrophils (%) (Auto) 80.3H, Lymphocytes (%) (Auto) 9.8L, Monocytes (%) (Auto) 8.7, Eosinophils (%) (Auto) 1.0, Basophils (%) (Auto) 0.3, Sodium Level 135L, Potassium Level 4.1, Chloride Level 100, Carbon Dioxide Level 30, Anion Gap 5, Blood Urea Nitrogen 18, Creatinine 1.0, Estimat Glomerular Filtration Rate , Glucose Level 70L, Calcium Level 8.0L, Vancomycin Level Trough 18.9H Height (Feet): 5 Height (Inches): 10.00 Weight (Pounds): 145 General Appearance: no apparent distress EENT: PERRL/EOMI Neck: non-tender, supple Cardiovascular: normal peripheral pulses Respiratory/Chest: chest wall non-tender, lungs clear Abdomen: normal bowel sounds, non tender Pollo Callejas MD Dec 05, 2018 03:26
[2018-12-05] MEDS: Piperacillin/Tazobactam 3.375 GM in D5W 110 ML IVPB SCH ×2 (05:33→13:17)
[2018-12-05 05:34] LABS: INR 1.2 (0.9-1.1)
[2018-12-05 05:35] LABS: HEMATOCRIT 22.7 % (42.0-52.0); HEMOGLOBIN 7.4 G/DL (14.2-18.0); MEAN CORPUSCULAR VOLUME 87 FL (80-99); PLATELET COUNT 179 K/UL (150-450); RED BLOOD COUNT 2.62 M/UL (4.70-6.10); RED CELL DISTRIBUTION WIDTH 13.7 % (11.6-14.8); WHITE BLOOD COUNT 6.6 K/UL (4.8-10.8)
[2018-12-05 05:51] LABS: ANION GAP 8 mmol/L (5-15); BLOOD UREA NITROGEN 14 mg/dL (7-18); CARBON DIOXIDE 27 MMOL/L (21-32); CHLORIDE 101 MMOL/L (98-107); CREATININE 0.9 MG/DL (0.55-1.30); POTASSIUM 3.6 MMOL/L (3.5-5.1); SODIUM 135 MMOL/L (136-145)
--- NOTE | 2018-12-05 07:30 | NUR ---
HAND-OFF: Report given to PATT DE OLIVEIRA.
--- NOTE | 2018-12-05 07:31 | NUR ---
NURSE NOTES: Received patient from Preethi Ballard RN. Patient in bed and asleep. Patient on room air and in no respiratory distress. telemetry monitor in placed. Currently NPO for EGD procedure scheduled today. Diaz is in placed and draining via gravity. Bed in lowest position with side rails up. Will continue to follow plan of care.
[2018-12-05] MEDS: Vancomycin 750mg/NS 275ml IVPB SCH ×2 (08:14)
[2018-12-05] MEDS: Ascorbic Acid 500mg tab ORAL SCH (08:19)
[2018-12-05] MEDS: Depakote 500mg tab ORAL SCH ×3 (08:19→17:42)
[2018-12-05] MEDS: Lisinopril 10mg tab ORAL SCH (08:19)
[2018-12-05] MEDS: Docusate 100mg/10ml Liq ORAL SCH (08:29)
--- NOTE | 2018-12-05 09:21 | General Progress Note ---
Assessment/Plan Problem List: (1) UTI (urinary tract infection) ICD Codes: N39.0 - Urinary tract infection, site not specified SNOMED: 80286675 (2) Osteomyelitis of ankle and foot ICD Codes: M86.9 - Osteomyelitis, unspecified SNOMED: 73346507 (3) Ulcer of right ankle ICD Codes: L97.319 - Non-pressure chronic ulcer of right ankle with unspecified severity SNOMED: 82904951, 534181861 (4) Right foot infection ICD Codes: L08.9 - Local infection of the skin and subcutaneous tissue, unspecified SNOMED: 705840641 (5) PVD (peripheral vascular disease) ICD Codes: I73.9 - Peripheral vascular disease, unspecified SNOMED: 418783848 (6) Prostatitis ICD Codes: N41.9 - Inflammatory disease of prostate, unspecified SNOMED: 4361080 Qualifiers: Qualified Codes: N41.8 - Other inflammatory diseases of prostate (7) Gastrointestinal hemorrhage ICD Codes: K92.2 - Gastrointestinal hemorrhage, unspecified SNOMED: 08675880 Qualifiers: Qualified Codes: K92.2 - Gastrointestinal hemorrhage, unspecified (8) Blood in stool ICD Codes: K92.1 - Melena SNOMED: 41517036, 393025135 (9) Ulcerated, foot ICD Codes: L97.509 - Non-pressure chronic ulcer of other part of unspecified foot with unspecified severity SNOMED: 47832503 Assessment/Plan plan colonoscopy today transfuse one unit PRBC Subjective ROS Limited/Unobtainable: No Allergies: Coded Allergies: No Known Allergies (Unverified , 11/26/18) Objective Last 24 Hour Vital Signs Date Time Temp Pulse Resp B/P (MAP) Pulse Ox O2 Delivery O2 Flow Rate FiO2 12/05/18 08:19 88/52 12/05/18 08:00 97.0 84 20 88/52 (64) 100 12/05/18 04:00 Nasal Cannula 2.0 12/05/18 04:00 97.5 84 20 93/50 (64) 96 12/05/18 03:32 86 12/05/18 00:00 97.8 84 20 102/49 (66) 96 12/05/18 00:00 Nasal Cannula 2.0 12/04/18 23:35 90 12/04/18 20:00 96.1 83 20 95/51 (66) 96 12/04/18 20:00 Nasal Cannula 2.0 12/04/18 19:10 81 12/04/18 16:18 Nasal Cannula 2.0 12/04/18 16:00 97.7 77 20 91/44 (60) 97 12/04/18 16:00 72 12/04/18 12:01 97.9 81 20 83/57 (66) 96 12/04/18 12:00 Nasal Cannula 2.0 12/04/18 11:49 80 12/04/18 09:39 72 20 98 Intake and Output 12/04/18 12/05/18 18:59 06:59 Intake Total 940 ml 897.42 ml Output Total 700 ml 350 ml Balance 240 ml 547.42 ml Intake Oral 940 ml 500 ml IV Total 397.42 ml Output Urine Total 700 ml 350 ml # Bowel Movements 4 Laboratory Tests 12/05/18 03:25: White Blood Count 6.6, Red Blood Count 2.62L, Hemoglobin 7.4L, Hematocrit 22.7L , Mean Corpuscular Volume 87, Mean Corpuscular Hemoglobin 28.4, Mean Corpuscular Hemoglobin Concent 32.8, Red Cell Distribution Width 13.7, Platelet Count 179, Mean Platelet Volume 4.6L, Neutrophils (%) (Auto) , Lymphocytes (%) ( Auto) , Monocytes (%) (Auto) , Eosinophils (%) (Auto) , Basophils (%) (Auto) , Differential Total Cells Counted 100, Neutrophils % (Manual) 78H, Lymphocytes % (Manual) 11L, Monocytes % (Manual) 10, Eosinophils % (Manual) 1, Basophils % ( Manual) 0, Band Neutrophils 0, Platelet Estimate Adequate, Platelet Morphology Normal, Hypochromasia 1+, Prothrombin Time 12.1H, Prothromb Time International Ratio 1.2H, Activated Partial Thromboplast Time 35H, Sodium Level 135L, Potassium Level 3.6, Chloride Level 101, Carbon Dioxide Level 27, Anion Gap 8, Blood Urea Nitrogen 14, Creatinine 0.9, Estimat Glomerular Filtration Rate , Glucose Level 104, Calcium Level 8.0L Height (Feet): 5 Height (Inches): 8.00 Weight (Pounds): 145 General Appearance: no apparent distress EENT: normal ENT inspection Neck: supple Cardiovascular: normal rate Respiratory/Chest: decreased breath sounds Abdomen: normal bowel sounds, non tender, soft Extremities: non-tender Dre Forde MD Dec 05, 2018 09:21
--- NOTE | 2018-12-05 09:21 | Pre-Procedure Note/Attestation ---
Pre-Procedure Note/Attestation Complete Prior to Procedure Planned Procedure: not applicable Procedure Narrative: esophagogastroduodenoscopy and colonoscopy Indications for Procedure Pre-Operative Diagnosis: gib Attestation I attest that I discussed the nature of the procedure; its benefits; risks and complications; and alternatives (and the risks and benefits of such alternatives ), prior to the procedure, with the patient (or the patient's legal ocean import representative). I attest that, if there was a reasonable possibility of needing a blood transfusion, the patient (or the patient's legal ocean import representative) was given the [facility] standardized written summary, pursuant to the Indra Nicholas Blood Safety Act ([place] Health and Safety Code # 1645, as amended). I attest that I re-evaluated the patient just prior to the surgery and that there has been no change in the patient's H&P, except as documented below: Dre Forde MD Dec 05, 2018 09:21
[2018-12-05] MEDS ORDERED: NS 500ML IVPB ONE (09:23)
[2018-12-05] MEDS ORDERED: Propofol 200mg/20ml IV ONE (09:30)
--- NOTE | 2018-12-05 09:40 | NUR ---
NURSE NOTES: Received order from Dr. Forde to transfuse 1unit of PRBC. Order carried out.
--- NOTE | 2018-12-05 09:51 | Anethesia Preoperative Eval ---
Anesthesia Pre-op PMH/ROS General Date of Evaluation: Dec 05, 2018 Time of Evaluation: 09:14 Anesthesiologist: Jigna Rosario CRNA ASA Score: ASA 3 Mallampati Score Class I : Soft palate, uvula, fauces, pillars visible Class II: Soft palate, uvula, fauces visible Class III: Soft palate, base of uvula visible Class IV: Only hard plate visible Mallampati Classification: Class II Surgeon: Eula Diagnosis: GI bleed Surgical Procedure: EGD, colonoscopy, diagnostic Anesthesia History: none Social History: smoking Allergies: Coded Allergies: No Known Allergies (Unverified , 11/26/18) Medications: see eMAR Patient NPO?: Yes NPO Date: Dec 03, 2018 NPO Time: 0000 Past Medical History Cardiovascular: Reports: HTN, CAD, other - Hypercholesterolemia; Denies: OH, valve dz, arrhythmia Pulmonary: Reports: other - NCO2 2 LPM; Denies: asthma, COPD, [place]BERTA Gastrointestinal/Genitourinary: Reports: other - BPH; Denies: GERD, CRI, ESRD Neurologic/Psychiatric: Reports: dementia, other - seizure disorder Endocrine: Denies: DM, hypothyroidism, steroids, other HEENT: Denies: cataract (L), cataract (R), glaucoma, [place] (L), [place] (R), other Hematology/Immune: Reports: anemia, other - PVD s/p AKA (B); Denies: DVT, bleeding disorder Musculoskeletal/Integumentary: Denies: OA, RA, DJD, DDD, edema, other PMH Narrative: as noted above PSxH Narrative: (B) AKA Anesthesia Pre-op Phys. Exam Physician Exam Last Vital Signs Date Time Temp Pulse Resp B/P (MAP) Pulse Ox O2 Delivery O2 Flow Rate FiO2 12/05/18 08:19 88/52 12/05/18 08:00 Room Air 12/05/18 08:00 97.0 84 20 100 12/05/18 04:00 2.0 Constitutional: NAD Neurologic: other - dementia Respiratory: CTA Gastrointestinal: S/NT/ND Airway Exam Mallampati Score: Class II MO: full Neck: FROM TMD: > 3 FB ROM: full Teeth: other - edentuous Dentures: upper, lower Anesthesia Pre-op A/P Labs Hematology Test 12/05/18 03:25 White Blood Count 6.6 K/UL (4.8-10.8) Red Blood Count 2.62 M/UL (4.70-6.10) L Hemoglobin 7.4 G/DL (14.2-18.0) L Hematocrit 22.7 % (42.0-52.0) L Mean Corpuscular Volume 87 FL (80-99) Mean Corpuscular Hemoglobin 28.4 PG (27.0-31.0) Mean Corpuscular Hemoglobin Concent 32.8 G/DL (32.0-36.0) Red Cell Distribution Width 13.7 % (11.6-14.8) Platelet Count 179 K/UL (150-450) Mean Platelet Volume 4.6 FL (6.5-10.1) L Neutrophils (%) (Auto) % (45.0-75.0) Lymphocytes (%) (Auto) % (20.0-45.0) Monocytes (%) (Auto) % (1.0-10.0) Eosinophils (%) (Auto) % (0.0-3.0) Basophils (%) (Auto) % (0.0-2.0) Differential Total Cells Counted 100 Neutrophils % (Manual) 78 % (45-75) H Lymphocytes % (Manual) 11 % (20-45) L Monocytes % (Manual) 10 % (1-10) Eosinophils % (Manual) 1 % (0-3) Basophils % (Manual) 0 % (0-2) Band Neutrophils 0 % (0-8) Platelet Estimate Adequate Platelet Morphology Normal Hypochromasia 1+ Coagulation Test 12/05/18 03:25 Prothrombin Time 12.1 SEC (9.30-11.50) H Prothromb Time International Ratio 1.2 (0.9-1.1) H Activated Partial Thromboplast Time 35 SEC (23-33) H Chemistry Test 12/05/18 03:25 Sodium Level 135 MMOL/L (136-145) L Potassium Level 3.6 MMOL/L (3.5-5.1) Chloride Level 101 MMOL/L (98-107) Carbon Dioxide Level 27 MMOL/L (21-32) Anion Gap 8 mmol/L (5-15) Blood Urea Nitrogen 14 mg/dL (7-18) Creatinine 0.9 MG/DL (0.55-1.30) Estimat Glomerular Filtration Rate mL/min (>60) Glucose Level 104 MG/DL (74-106) Calcium Level 8.0 MG/DL (8.5-10.1) L Studies Pre-op Studies: EKG - LBBB, CXR - LLL aelectasis, echo - EF 55% Risk Assessment & Plan Assessment: ASA 3, ok to proceed Plan: MAC Status Change Before Surgery: No Pre-Antibiotics Given Within 1 Hr of Incision: No Milady Rosario CRNA Dec 05, 2018 09:51
--- NOTE | 2018-12-05 10:06 | Endoscopy Procedure Note ---
Endoscopy Procedure Note General Indication for Procedure: gib Procedures Performed: EGD, colonoscopy Operative Findings/Diagnosis: 6 polyps, gastritis Specimen: yes Pt Tolerated Procedure Well: Yes Estimated Blood Loss: none Anesthesia Anesthesiologist: crow Anesthesia: MAC Inserted Devices Implant(s) used?: No Quality Quality of Bowel Preparation: Good Did scope reach the cecum?: Yes Was there any complications?: No GI Core Measures 50 yrs or older w/o bx or poly: Not Applicable 10yrs. F/U not recommended: Not Applicable Dre Forde MD Dec 05, 2018 10:06
--- NOTE | 2018-12-05 10:18 | Immediate Post-Op Evaluation ---
Immediate Post-Op Evalulation Immediate Post-Op Evalulation Procedure: EGD, colonoscopy, polypectomy Date of Evaluation: Dec 05, 2018 Time of Evaluation: 10:10 IV Fluids: 0.95 NS 150 ml Blood Pressure Systolic: 81 Blood Pressure Diastolic: 52 Pulse Rate: 85 Respiratory Rate: 16 O2 Sat by Pulse Oximetry: 99 Temperature (Fahrenheit): 97.4 Pain Score (1-10): 0 Nausea: No Vomiting: No Complications none Patient Status: awake, reacts, patent Hydration Status: adequate Given Within 1 Hr of Incision: Milady Sorensen CRNA Dec 05, 2018 10:18
--- NOTE | 2018-12-05 11:02 | 48 Hour Post Anesthesia Eval ---
Post Anesthesia Evaluation Procedure: EGD, colonoscopy, polypectomy Date of Evaluation: Dec 05, 2018 Time of Evaluation: 11:01 Blood Pressure Systolic: 85 0: 54 Pulse Rate: 77 Respiratory Rate: 16 Temperature (Fahrenheit): 98 O2 Sat by Pulse Oximetry: 99 Airway: patent Nausea: No Vomiting: No Pain Intensity: 0 Hydration Status: adequate Mental Status/LOC: patient returned to baseline Follow-up Care/Observations: per hospitalist Post-Anesthesia Complications: none Follow-up care needed: N/A Milady Rosario CRNA Dec 05, 2018 11:02
--- NOTE | 2018-12-05 11:28 | NUR ---
NURSE NOTES: Blood transfusion started. VS stable. No fever. Will continue to monitor.
--- NOTE | 2018-12-05 12:55 | NUR ---
READING TEACHERSPECIAL DIET COOK SI:ANEMIA . RIGHT FOOT GANGRENE VS: BP 81/52, P 73, T 97.4, RR 16, SpO2 96 on 2.0L NC RBC 2.62, Hgb 7.4, Hct 22.7, Na 135, Ca 8.0 IS:NS 500ml 550ml IVPB VANCOMYCIN 275ml IVPB PIPERACILLIN 110ml IVPB DEPAKOTE 500 mg SDU STATUS
--- NOTE | 2018-12-05 15:31 | Cardiac Electrophysiology PN ---
Assessment/Plan Assessment/Plan 1. Left bundle-branch block. No any chest pain. Echocardiogram Nl EF and No WMA 2. Hypotension better after NS 500 cc bolus 3. Peripheral vascular disease, status post left above-knee amputation. FU Dr Borden. Likely would need aspirin and statin after Right AKA 4. Infected right ankle joint and gangrene evaluated by Dr. Borden. S/P Right AKA. Tolerated the surgery. MACKENZIE RN Subjective Subjective S/P AKA on tele. In SR with LBBB. RN at bedside Objective Last 24 Hour Vital Signs Date Time Temp Pulse Resp B/P (MAP) Pulse Ox O2 Delivery O2 Flow Rate FiO2 12/05/18 12:00 Room Air 12/05/18 12:00 97.8 73 18 88/48 (61) 96 12/05/18 11:42 72 12/05/18 11:02 77 16 99 12/05/18 10:20 98.0 77 16 85/54 99 Nasal Cannula 2 12/05/18 10:18 85 16 99 12/05/18 10:15 78 17 84/47 99 Nasal Cannula 2 12/05/18 10:10 97.4 85 16 81/52 99 Nasal Cannula 2 12/05/18 08:19 88/52 12/05/18 08:00 Room Air 12/05/18 08:00 97.0 84 20 88/52 (64) 100 12/05/18 07:54 82 12/05/18 04:00 Nasal Cannula 2.0 12/05/18 04:00 97.5 84 20 93/50 (64) 96 12/05/18 03:32 86 12/05/18 00:00 97.8 84 20 102/49 (66) 96 12/05/18 00:00 Nasal Cannula 2.0 12/04/18 23:35 90 12/04/18 20:00 96.1 83 20 95/51 (66) 96 12/04/18 20:00 Nasal Cannula 2.0 12/04/18 19:10 81 12/04/18 16:18 Nasal Cannula 2.0 12/04/18 16:00 97.7 77 20 91/44 (60) 97 12/04/18 16:00 72 Intake and Output 12/04/18 12/05/18 18:59 06:59 Intake Total 940 ml 897.42 ml Output Total 700 ml 350 ml Balance 240 ml 547.42 ml Intake Oral 940 ml 500 ml IV Total 397.42 ml Output Urine Total 700 ml 350 ml # Bowel Movements 4 Laboratory Tests Test 12/05/18 03:25 White Blood Count 6.6 K/UL (4.8-10.8) Red Blood Count 2.62 M/UL (4.70-6.10) L Hemoglobin 7.4 G/DL (14.2-18.0) L Hematocrit 22.7 % (42.0-52.0) L Mean Corpuscular Volume 87 FL (80-99) Mean Corpuscular Hemoglobin 28.4 PG (27.0-31.0) Mean Corpuscular Hemoglobin Concent 32.8 G/DL (32.0-36.0) Red Cell Distribution Width 13.7 % (11.6-14.8) Platelet Count 179 K/UL (150-450) Mean Platelet Volume 4.6 FL (6.5-10.1) L Neutrophils (%) (Auto) % (45.0-75.0) Lymphocytes (%) (Auto) % (20.0-45.0) Monocytes (%) (Auto) % (1.0-10.0) Eosinophils (%) (Auto) % (0.0-3.0) Basophils (%) (Auto) % (0.0-2.0) Differential Total Cells Counted 100 Neutrophils % (Manual) 78 % (45-75) H Lymphocytes % (Manual) 11 % (20-45) L Monocytes % (Manual) 10 % (1-10) Eosinophils % (Manual) 1 % (0-3) Basophils % (Manual) 0 % (0-2) Band Neutrophils 0 % (0-8) Platelet Estimate Adequate Platelet Morphology Normal Hypochromasia 1+ Prothrombin Time 12.1 SEC (9.30-11.50) H Prothromb Time International Ratio 1.2 (0.9-1.1) H Activated Partial Thromboplast Time 35 SEC (23-33) H Sodium Level 135 MMOL/L (136-145) L Potassium Level 3.6 MMOL/L (3.5-5.1) Chloride Level 101 MMOL/L (98-107) Carbon Dioxide Level 27 MMOL/L (21-32) Anion Gap 8 mmol/L (5-15) Blood Urea Nitrogen 14 mg/dL (7-18) Creatinine 0.9 MG/DL (0.55-1.30) Estimat Glomerular Filtration Rate mL/min (>60) Glucose Level 104 MG/DL (74-106) Calcium Level 8.0 MG/DL (8.5-10.1) L Objective HEAD AND NECK: No JVD. LUNGS: Decreased breath sounds. CARDIOVASCULAR: Regular, S1 and S2 with no gallop. ABDOMEN: Soft. EXTREMITIES: S/P left above-knee amputation and new right AKA Willie Araya MD Dec 05, 2018 15:30
--- NOTE | 2018-12-05 15:54 | Infectious Diseases Prog Note ---
Assessment/Plan Assessment/Plan ASSESSMENT AND PLAN: 1. mrsa/pseudomonas/diphtheroids right foot/ankle wound infection/gangrene/ osteomyelitis/cellulitis, proteus uti - finish zosyn, vancomycin - s/p right aka - monitor labs and clinically - clinically stable 2. Check followup chest x-ray and laboratories. 3. Anemia. 4. Gastrointestinal bleed. 5. History of benign prostatic hypertrophy. 6. Diabetes - tx per primary 7. Hypertension - tx per primary 8. bph, prostatitis 9. Dementia. 10. Seizures. 11. No known allergies. 12. Social history is negative. 13. Family history is noncontributory. 14. MAR was noted. 15. Case discussed with RN. 16. Continue treatment per primary consultants. Subjective Constitutional: Reports: fatigue; Denies: fever HEENT: Denies: congestion Respiratory: Denies: shortness of breath Gastrointestinal/Abdominal: Denies: nausea, vomiting Genitourinary: Denies: dysuria Neurologic: Denies: headache Skin: Denies: rash Hematologic: Denies: bleeding Musculoskeletal: Reports: other - bilateral leg amputation Allergies: Coded Allergies: No Known Allergies (Unverified , 11/26/18) Objective Vital Signs Last 24 Hour Vital Signs Date Time Temp Pulse Resp B/P (MAP) Pulse Ox O2 Delivery O2 Flow Rate FiO2 12/05/18 12:00 Room Air 12/05/18 12:00 97.8 73 18 88/48 (61) 96 12/05/18 11:42 72 12/05/18 11:02 77 16 99 12/05/18 10:20 98.0 77 16 85/54 99 Nasal Cannula 2 12/05/18 10:18 85 16 99 12/05/18 10:15 78 17 84/47 99 Nasal Cannula 2 12/05/18 10:10 97.4 85 16 81/52 99 Nasal Cannula 2 12/05/18 08:19 88/52 12/05/18 08:00 Room Air 12/05/18 08:00 97.0 84 20 88/52 (64) 100 12/05/18 07:54 82 12/05/18 04:00 Nasal Cannula 2.0 12/05/18 04:00 97.5 84 20 93/50 (64) 96 12/05/18 03:32 86 12/05/18 00:00 97.8 84 20 102/49 (66) 96 12/05/18 00:00 Nasal Cannula 2.0 12/04/18 23:35 90 12/04/18 20:00 96.1 83 20 95/51 (66) 96 12/04/18 20:00 Nasal Cannula 2.0 12/04/18 19:10 81 12/04/18 16:18 Nasal Cannula 2.0 12/04/18 16:00 97.7 77 20 91/44 (60) 97 12/04/18 16:00 72 Height (Feet): 5 Height (Inches): 8.00 Weight (Pounds): 145 General Appearance: no acute distress HEENT: normocephalic, atraumatic, anicteric, mucous membranes moist Respiratory/Chest: lungs clear, normal breath sounds, no respiratory distress, no accessory muscle use Cardiovascular: normal rate, regular rhythm, no gallop/murmur, no JVD Abdomen: normal bowel sounds, soft, non tender, no organomegaly, non distended Genitourinary: other - + jones - urine clearer Extremities: other - bilateral leg amputation Skin: no rash Neurologic/Psychiatric: marzipan molder II-XII grossly normal, alert, oriented x 3, responsive Lymphatic: no neck adenopathy Musculoskeletal: other - bilateral leg amputation Objective 11/30/18 - Chest x-ray - TECHNIQUE: Frontal view of the chest. COMPARISON: No relevant prior studies available. FINDINGS: Lungs: Hypoventilatory lungs. Mild left lung base atelectasis. Vascularity within normal limits. Pleural space: Unremarkable. No pneumothorax. Heart: Unremarkable. No cardiomegaly. Mediastinum: Unremarkable. Bones/joints: Mild degenerative changes of the spine. IMPRESSION: Hypoventilatory lungs. Mild left lung base atelectasis. MRI - right foot - Impression: Abnormal marrow signal within the distal first metatarsal. This is highly suspicious for acute osteomyelitis Subtle increased STIR signal within the second proximal phalanx, without corresponding T1 signal abnormality. This could indicate reactive changes versus very early acute osteomyelitis Evidence of first and third toe amputations Chronic erosive changes as described Extensive diffuse soft tissue edema. Given stated clinical history, likely on the basis of cellulitis. No definite focal drainable abscess collection. There is evidence of medial soft tissue ulcer. MRI - right ankle - Impression: Limited exam, due to patient motion artifact Abnormal signal within the talus, distal tibia, upper posterior navicular. Findings are highly suspicious for acute osteomyelitis. More questionable signal abnormality of the calcaneus, may be reactive or could indicate early acute osteomyelitis changes. Soft tissue edema, likely cellulitis given stated clinical history. No definite focal drainable abscess collection demonstrated Microbiology Date/Time Source Procedure Growth Status 11/26/18 18:30 Nasal Nares MRSA Culture - Final NO METHICILLIN RESISTANT STAPH AUREUS... Complete 11/26/18 16:50 Urine,Clean Catch Urine Culture - Final Proteus Mirabilis Complete 11/26/18 22:00 Foot Right Gram Stain - Final Complete 11/26/18 22:00 Wound Culture - Final Pseudomonas Aeruginosa Diphtheroids Staphylococcus Aureus - Mrsa Complete Laboratory Tests Test 12/05/18 03:25 White Blood Count 6.6 K/UL (4.8-10.8) Red Blood Count 2.62 M/UL (4.70-6.10) L Hemoglobin 7.4 G/DL (14.2-18.0) L Hematocrit 22.7 % (42.0-52.0) L Mean Corpuscular Volume 87 FL (80-99) Mean Corpuscular Hemoglobin 28.4 PG (27.0-31.0) Mean Corpuscular Hemoglobin Concent 32.8 G/DL (32.0-36.0) Red Cell Distribution Width 13.7 % (11.6-14.8) Platelet Count 179 K/UL (150-450) Mean Platelet Volume 4.6 FL (6.5-10.1) L Neutrophils (%) (Auto) % (45.0-75.0) Lymphocytes (%) (Auto) % (20.0-45.0) Monocytes (%) (Auto) % (1.0-10.0) Eosinophils (%) (Auto) % (0.0-3.0) Basophils (%) (Auto) % (0.0-2.0) Differential Total Cells Counted 100 Neutrophils % (Manual) 78 % (45-75) H Lymphocytes % (Manual) 11 % (20-45) L Monocytes % (Manual) 10 % (1-10) Eosinophils % (Manual) 1 % (0-3) Basophils % (Manual) 0 % (0-2) Band Neutrophils 0 % (0-8) Platelet Estimate Adequate Platelet Morphology Normal Hypochromasia 1+ Prothrombin Time 12.1 SEC (9.30-11.50) H Prothromb Time International Ratio 1.2 (0.9-1.1) H Activated Partial Thromboplast Time 35 SEC (23-33) H Sodium Level 135 MMOL/L (136-145) L Potassium Level 3.6 MMOL/L (3.5-5.1) Chloride Level 101 MMOL/L (98-107) Carbon Dioxide Level 27 MMOL/L (21-32) Anion Gap 8 mmol/L (5-15) Blood Urea Nitrogen 14 mg/dL (7-18) Creatinine 0.9 MG/DL (0.55-1.30) Estimat Glomerular Filtration Rate mL/min (>60) Glucose Level 104 MG/DL (74-106) Calcium Level 8.0 MG/DL (8.5-10.1) L Current Medications Medications (Trade) Dose Ordered Sig/Nat Route PRN Reason Start Time Stop Time Status Last Admin Dose Admin Acetaminophen (Tylenol) 650 mg Q4H PRN ORAL For Pain 11/26/18 22:00 12/26/18 21:59 12/04/18 11:27 Ascorbic Acid (Vitamin C) 500 mg DAILY ORAL 11/27/18 09:00 12/27/18 08:59 12/05/18 08:19 Divalproex Sodium (Depakote) 500 mg TID ORAL 11/27/18 09:00 12/27/18 08:59 12/05/18 13:17 Docusate Sodium (Colace) 100 mg EVERY 12 HOURS ORAL 11/29/18 21:00 12/29/18 20:59 12/05/18 08:29 Donepezil HCl (Aricept) 5 mg BEDTIME ORAL 11/26/18 22:30 12/26/18 22:29 12/04/18 20:04 Ferrous Sulfate (Feosol) 325 mg BID ORAL 12/01/18 18:00 12/31/18 17:59 12/05/18 08:19 Hydromorphone HCl (Dilaudid) 0.5 mg Q3H PRN IVP Pain Score 1-3 12/03/18 15:30 12/10/18 15:29 12/04/18 03:22 Hydromorphone HCl (Dilaudid) 1 mg Q3H PRN IVP pain score 4-6 12/03/18 15:30 12/10/18 15:29 Hydromorphone HCl (Dilaudid) 2 mg Q3H PRN IVP pain score 7-10 12/03/18 15:30 12/10/18 15:29 Lisinopril (Zestril) 10 mg DAILY ORAL 11/27/18 09:00 12/27/18 08:59 12/02/18 08:45 Piperacillin Sod/ Tazobactam Sod 3.375 gm/Dextrose 110 ml @ 27.5 mls/hr EVERY 8 HOURS IVPB 12/01/18 22:00 12/06/18 21:59 12/05/18 13:17 Polyethylene Glycol (Miralax) 17 gm BEDTIME ORAL 11/28/18 21:00 12/28/18 20:59 12/04/18 20:04 Tamsulosin HCl (Flomax) 0.4 mg BEDTIME ORAL 11/26/18 22:30 12/26/18 22:29 12/04/18 20:04 Vancomycin HCl (Vanco rx to dose) 1 ea DAILY PRN MISC Per rx protocol 11/29/18 17:45 12/29/18 17:44 Vancomycin HCl 750 mg/Sodium Chloride 275 ml @ 183.333 mls/hr Q12H IVPB 12/02/18 20:00 12/07/18 19:59 12/05/18 08:14 Riki Lunsford MD Dec 05, 2018 15:54
--- NOTE | 2018-12-05 16:17 | NUR ---
CARDIAC CATH TECHNICIAN NOTES PT TO RETURN TO [facility] ROOM [address] BED [address]. SKILLED. [facility] TO TRANSPORT PT, WITH ETA 1800.
--- NOTE | 2018-12-05 16:30 | NUR ---
NURSE NOTES: Spoke to Dr. Callejas. Received an order for discharged back to [facility]. Aware of the 1 unit PRBC transfused today, HGB 7.4, and result of EGD procedure. He is also aware about patient's low blood pressure. He stated that he will take care of his medications when he is back at the custodial. Mock Up Assembler notified of discharged order. Dr. Araya, Dr. Lunsford, and Dr. Baca at bedside and made aware of patient's discharged order. Dr. Lunsford said its okay for patient to stop antibiotics, but Dr. Callejas will take care of it. Patient's sister Raissa was called to make her aware of transfer.
--- NOTE | 2018-12-05 17:00 | General Progress Note ---
Progress Note Progress Note Surgery: doing well. comfortable. no n/v/f/c. labs noted. dressings removed and wound c/d/i. flap viable okay to d/c dressings prn lokesh to be removed in 6-8 weeks. call for appt or can be done at facility Deven Baca Dec 05, 2018 17:00
--- NOTE | 2018-12-05 17:00 | NUR ---
NURSE NOTES: Gave report to CARO, RN Instructor Decorating from [facility].
--- NOTE | 2018-12-05 17:15 | Procedure Note ---
DATE OF PROCEDURE: 12/05/2018 SURGEON: Dre Forde M.D. REFERRING PHYSICIAN: Pollo Callejas M.D. PROCEDURE: Colonoscopy with snare polypectomy and endoscopy with biopsy. ANESTHESIA: Per Milady DEAN. INSTRUMENT: Olympus adult flexible upper endoscope and colonoscope. REASON FOR PROCEDURE: The procedure, risks, benefits, and possible consequences, including hemorrhage, aspiration, perforation and infection, and alternative treatments, were explained to the patient/legal guardian by Dr. Dre Forde and the patient/legal guardian understood and accepted these risks. INDICATION: GI bleeding and anemia. DESCRIPTION OF PROCEDURE: After informed consent was obtained and the patient was adequately sedated, Olympus upper endoscope was advanced from mouth to the second portion of duodenum and retroflexion was performed in the stomach. The patient has diffuse atrophic gastritis. Random biopsy from antrum was obtained to rule out H. pylori infection. At this time, the upper endoscope was retrieved. The patient was turned over for colonoscopy. First, rectal exam was performed, which was normal. Then, the scope was advanced from rectum into the cecum, then subsequently terminal ileum. Quality of prep was very good. The patient had a total of six polyps in this colonoscopy examination. One diminutive polyp in the ascending colon removed with the cold biopsy forceps technique. Three polyps in the transverse colon, the largest one measured about 7 mm, removed with a hot snare polypectomy technique. In the sigmoid, there were two polyps, one of them was small and other one actually was 1.7 cm, pedunculated and removed with a hot snare polypectomy technique. The rest of the examination was within normal limits. SUMMARY OF FINDINGS: 1. Atrophic gastritis, status post biopsy. 2. Status post removal of six polyps, see above for detail. 3. Internal hemorrhoids. RECOMMENDATIONS: 1. Follow up pathology. 2. Given six polyps and one of the polyps to be very large, we will recommend repeat colonoscopy in three years. I want to thank Dr. Callejas for this kind referral. Dre Forde M.D. DR: SHAZIA JOB#: [id number] CC: Pollo Callejas M.D.; Fax#: [phone]
--- NOTE | 2018-12-05 19:28 | NUR ---
HAND-OFF: Report given to Monie Moreno RN. Aware of patient's belongings.
--- NOTE | 2018-12-05 19:30 | NUR ---
NURSE NOTES: Received patient from YENNIFER ROBISON RN. Patient awake confused.No SOB on RA. Denies pain at this time. BP 99/48 HR 81 Temp 98.1.RT AKA wound is clean and no drainage noted. awaiting for ambulance to discharge to [facility].
--- NOTE | 2018-12-05 20:10 | NUR ---
NURSE NOTES: Patient discharged to [facility] via ambulance. no acute distress noted. belongings carried with patient.
[2018-12-05] MEDS ORDERED: NS 500ML ONE (20:14)
[2018-12-05] MEDS ORDERED: NS 275ml ONE (20:14)
[2018-12-05] MEDS ORDERED: Tubing Blood Filter IV ONE (20:14)
[2018-12-05] MEDS ORDERED: Vancomycin 750mg/NS 275ml IVPB SCH ×2 (23:00)
--- NOTE | 2018-12-08 08:03 | Discharge Summary ---
Discharge Summary Discharge Summary _ DATE OF ADMISSION: 11/26/2018 DATE OF DISCHARGE: 12/05/2018 DISCHARGED BY:Dr Callejas REASON FOR ADMISSION: 78 years old male with past medical history of hypertension, diabetes mellitus, seizure disorder, PVD with history of left AKA, BPH, presented from the group home facility for evaluation with bright red blood per rectum, after prostate biopsy, done earlier that day. Patient also complained of pain in the right leg. Vital signs reveal hypotension. Laboratory workup revealed no leukocytosis, hemoglobin 7.2, hematocrit 22.6. MCV 87. INR 1.2. Urinalysis evidence of hematuria , +2 protein , and findings consistent with UTI. Sodium 133, Chloride 97. BUN 29, creatinine 1.1. EKG revealed normal sinus rhythm, no acute ischemic changes, left bundle branch block. Patient admitted for further management. CONSULTANTS: finish patcher Dr. Trujillo ID specialist GI specialist Dr. Forde vascular surgery Dr. Borden general surgery Dr. Baca HOSPITAL COURSE: Patient admitted to stepdown unit. Patient received blood transfusion, total of 4 units of packed red blood cells while in the hospital. Hemoglobin and hematocrit were closely monitored with goal to keep hemoglobin above 7. General and vascular surgeons seen and evaluated patient due to significant right lower extremity foot infection and ischemia. Patient started on the IV antibiotics as per ID specialist recommendations. Wound care provided as per surgeon recommendation. Arterial Doppler duplex revealed evidence of significant arterial occlusive calcific disease Venous duplex of right lower extremity revealed recanalized chronic thrombus in the superficial femoral to popliteal veins. MRI of the right foot revealed abnormal marrow signal within the distal first metatarsal, highly suspicious for acute osteomyelitis. MRI of the right ankle also revealed abnormal signal within the talus, distal tibia, upper posterior navicular. Findings were highly suspicious for acute osteomyelitis. Wound culture revealed Pseudomonas and MRSA. Antibiotic regimen optimized as per ID specialist recommendation. Per vascular surgeon, patient had non-salvageable right leg with extensive gangrenous necrosis of the foot and ankle with pus drainage and knee contractures and absent pulses. Patient had calcific multilevel arterial occlusive disease with infected gangrene of right leg. DVT prophylaxis provided Bioethics committee decision was requested in regards to proposed amputation due to patient inability to provide consent. Bioethics committee concluded that the doctor should do what is in the patient' s best interest. Cardiology consult was requested for cardiac clearance for surgery. Patient had left bundle branch block on EKG, but no chest pain. Echocardiogram revealed preserved ejection fraction of 50% and no wall motion abnormality. No evidence of left ventricular hypertrophy. Patient subsequently undergone right above-knee amputation on 12/03. Biopsy of right leg revealed severe calcific atherosclerosis of distal vessels with dense mixed inflammation and necrosis. Pain management was addressed. Supportive care provided. Patient experienced hypotension, blood pressure was closely monitored. Blood pressure responded to normal saline boluses and subsequently improved.. Urine culture revealed Proteus. Patient was completed antibiotic for UTI as per ID recommended GI specialist follow. Stool for occult blood x2 was positive. Patient started on PPI. Patient undergone EGD with biopsy and colonoscopy with snare polypectomy. Findings included atrophic gastritis, status post biopsy, status post removal of 6 polyps, internal hemorrhoids. Given the six polyps , one of them being very large, recommended to repeat colonoscopy in 3 years. At the time of this dictation, biopsy of stomach antrum and polyp still pending. Patient was continue on iron supplement. Dressings were removed, and wound appeared to be clean, dry and intact with a viable flap. López to be removed in 6-8 weeks. Follow-up with surgeon as outpatient. Patient will require to start aspirin and statin as outpatient. At this point aspirin not started due to low hemoglobin. 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 Left bundle branch block Hypotension Gastrointestinal hemorrhage/rectal, status post recent prostate biopsy Anemia of acute blood loss, requiring blood transfusion s/p EGD and colonoscopy Atrophic gastritis Status post 6 polyps removal Internal hemorrhoids Non salvageable right leg with extensive gangrenous necrosis of the foot and ankle with past drainage and knee contractures and absent pulses/infected gangrene of right leg Calcific multilevel arterial occlusive disease Infected right ankle joint and gangrene status post right AKA DISCHARGE MEDICATIONS: List of medication was sent with patient DISCHARGE INSTRUCTIONS: Patient was discharged to the group home facility. Follow up with medical doctor at the facility. I have been assigned to dictate discharge summary for this account. I was not involved in the patient's management. Paula Lucia NP Dec 08, 2018 08:03
== END 2018-12-05 20:15 | DRG 982 ==
LOC: EDBD 16:13 → EMR 17:03 → 2W 18:00 → EDBEDREQ 19:18 → 2W 21:00
DX: K62.5 Hemorrhage of anus and rectum (principal); N39.0 Urinary tract infection, site not specified; L03.115 Cellulitis of right lower limb; I96 Gangrene, not elsewhere classified; L97.312 Non-pressure chronic ulcer of right ankle with fat layer exposed; M86.171 Other acute osteomyelitis, right ankle and foot; N41.9 Inflammatory disease of prostate, unspecified; B96.4 Proteus (mirabilis) (morganii) as the cause of diseases classified elsewhere; B96.5 Pseudomonas (aeruginosa) (mallei) (pseudomallei) as the cause of diseases classified elsewhere; B95.62 Methicillin resistant Staphylococcus aureus infection as the cause of diseases classified elsewhere; I73.9 Peripheral vascular disease, unspecified; L97.512 Non-pressure chronic ulcer of other part of right foot with fat layer exposed; Z89.612 Acquired absence of left leg above knee; N40.0 Benign prostatic hyperplasia without lower urinary tract symptoms; I10 Essential (primary) hypertension; F03.90 Unspecified dementia, unspecified severity, without behavioral disturbance, psychotic disturbance, mood disturbance, and anxiety; I44.7 Left bundle-branch block, unspecified; D64.9 Anemia, unspecified; I95.9 Hypotension, unspecified; K29.40 Chronic atrophic gastritis without bleeding; K63.5 Polyp of colon
CPT/HCPCS: 36415; 71045; 80048; 80053; 80202; 81003; 82270; 82962; 84484; 85007; 85025; 85610; 85730; 86850; 86900; 86901; 86920; 87070; 87081; 87086; 87181; 87205; 93005; 93306; 93926; 93971; 94003; 94150; 96361; 96365; 96375; 99291; J2250